=== PATIENT | male | born 1950 | race African-American/Black ===

== ENCOUNTER 2017-02-01 08:58 | Inpatient (IN) | payer MEDICARE, OTHER ==
[2017-02-01] MEDS ORDERED: Lorazepam 2 MG/ML VIAL ONE (09:10)
[2017-02-01] MEDS ORDERED: Fentanyl 100 MCG/2 ML VIAL ONE (09:24)
[2017-02-01] MEDS ORDERED: Midazolam HCl 2 mg/2 ml Vial ONE ×3 (09:24→11:48)
[2017-02-01 09:41] LABS: #Basophils 0.1 thou/uL (0.0-0.2); #Eosinphils 0.1 thou/uL (0.0-0.7); #Lymphocytes 3.7 thou/uL (1.20-3.40); #Monocytes 0.6 thou/uL (0.11-0.59); #Neutrophils 12.5 thou/uL (1.40-6.50); %Basophils 0.7 % (0.0-1.0); %Eosinophils 0.5 % (0.0-10.0); %Lymphocytes 21.8 % (21.0-51.0); %Monocytes 3.8 % (0.0-10.0); Hematocrit 42.9 % (42.0-52.0); Mean Platelet Volume 7.3 fL (7.4-10.4); Red Blood Cell (RBC) Count 4.78 mill/uL (4.70-6.10)
[2017-02-01] MEDS ORDERED: Fentanyl 20 MCG/ML 250 ML ONE (09:50)
[2017-02-01 10:09] LABS: Anion Gap 22 mmol/L (10-20); BUN (Urea Nitrogen) 12 mg/dL (8.4-25.7); Bilirubin, Total 0.2 mg/dL (0.2-1.2); Calc. Creatinine Clearance 0 mL/min (70-130); Calcium 9.5 mg/dL (7.8-10.44); Carbon Dioxide 14 mmol/L (23-31); Chloride 111 mmol/L (98-107); Estimated GFR-MDRD 66; Protein, Total 8.2 g/dL (5.8-8.1)
[2017-02-01 10:10] LABS: ALT (SGPT) 18 U/L (8-55); AST (SGOT) 25 U/L (5-34); Alkaline Phosphatase 94 U/L (40-150); Globulin 4.1 g/dL (2.4-3.5)
[2017-02-01 10:12] LABS: Oxyhemoglobin 88.3 % (94.0-97.0); Sodium 141 mmol/L (135-148)
[2017-02-01 10:18] LABS: Mechanical Tidal Volume 430 ml; Mode SIMV; Modified Allen's Test POSITIVE; Pressure Support 10 cmH2O; Vent YES
--- NOTE | 2017-02-01 10:20 | RAD ---
CHEST 1 VIEW: HISTORY: A 66-year-old male with altered mental status. FINDINGS: NG tube and endotracheal tube are in position. Minimal increased liner and interstitial markings are noted bilaterally. Healed right rib fractures. Slight blunting of the left costophrenic angle. At herosclerosis of the aorta. Increased linear and interstitial markings with some blunting of the left costophrenic angle. There may be some component of some minimal vascular congestion. There is no confluent pneumonia. Nasogas tric tube and endotracheal tube are in position. IMPRESSION: Nasogastric tube and endotracheal tube in satisfactory location. Mild bilateral vascular congestion with some increased markings bilaterally, some of which appears to be stable and chronic. Minimal bl unting of the left costophrenic angle. No confluent pneumonia. Healed right rib fractures. Continu ed short-term followup. POS: [facility]
[2017-02-01 10:21] LABS: Acetaminophen Less than 6.0 mcg/mL (10.0-30.0); Salicylate Less than 8.0 mg/dL (15.0-30.0)
--- NOTE | 2017-02-01 10:21 | CT ---
HEAD CT WITHOUT CONTRAST: Date: 02-01-17 Comparison: 04-05-15 History: Seizure with fall, altered mental status. Technique: Serial axial CT imaging is obtained at 5 mm intervals from the vertex through the skull ba se without contrast. FINDINGS: Bilateral midline nasal bone fractures are seen, unchanged when compared to the 04-05-15 exam. Fluid d ensity material is seen within the nasal cavity bilaterally. There is no displaced calvarial fracture. There is no intracranial hemorrhage, midline shift, mass ef fect or ventricular enlargement. There is mild cerebral volume loss. IMPRESSION: No intracranial hemorrhage or displaced calvarial fracture appreciated. POS: [facility]
--- NOTE | 2017-02-01 10:25 | CT ---
CERVICAL SPINE CT SCAN WITHOUT IV CONTRAST: HISTORY: A 66-year-old male with altered mental status. History of seizure with fall, intubation, laceration over occiput. FINDINGS: Nasogastric tube and endotracheal tube are in position. There is fluid within the posterior nasophar ynx and nasal cavity. There is multilevel cervical spondylosis, particularly at C6-C7. There appear s to be vertical height loss of the T3 vertebral body which appears to be old. The patient has had m ultiple prior thoracic spine compression fractures. No evidence for acute fracture or facet dislocation. IMPRESSION: No fracture or facet dislocation. Generalized spondylosis. Old mild compression fracture of T3. POS: [facility]
[2017-02-01 10:30] LABS: Lactic Acid - Sepsis 9.7 mmol/L (0.5-2.2)
[2017-02-01 10:44] LABS: Bilirubin Negative (Negative); Blood, Urine Small (Negative); Glucose, Urine (Dipstick) 500 mg/dL (Negative); Ketone, Urine Trace mg/dL (Negative); Nitrite Negative (Negative); Protein, Urine (Dipstick) 100 mg/dL (Neg-Trace); Urobilinogen 0.2 mg/dL (0.2-1.0)
[2017-02-01 10:59] LABS: Amphetamine Not Detected (NotDetected); Methadone Not Detected (NotDetected); Methamphetamine Not Detected (NotDetected)
[2017-02-01 11:00] LABS: RBC/HPF 0-3 HPF (0-3); Squamous Epithelial 0-3 HPF (0-3); WBC/HPF 0-3 HPF (0-3)
[2017-02-01 11:01] LABS: Bacteria/HPF None Seen HPF (None Seen); Hyaline Casts/LPF NONE SEEN LPF (0-3 Hyaline)
[2017-02-01] MEDS ORDERED: Propofol 1,000 MG/100 ML VIAL IV ONE (13:08)
[2017-02-01] MEDS ORDERED: Sodium Chloride 0.9% 1,000 ML IV SCH (14:00)
[2017-02-01] MEDS ORDERED: levETIRAcetam In NaCl (Iso-Os) 1,500 MG in Premix Bag 1 BAG IVPB SCH ×2 (14:30)
[2017-02-01] MEDS ORDERED: Acetaminophen 650 MG Suppository PR PRN (14:43)
[2017-02-01] MEDS ORDERED: Heparin 5,000 UNITS/ML VIAL SC SCH (15:00)
[2017-02-01] MEDS ORDERED: Lorazepam 2 MG/ML VIAL SLOW IVP PRN (16:26)
--- NOTE | 2017-02-01 16:56 | CON ---
DATE OF CONSULTATION: 02/01/2017 SERVICE: Pulmonary Medicine. REASON FOR CONSULTATION: Respiratory failure. HISTORY OF PRESENT ILLNESS: The patient is a 66-year-old -Cypriot male with past medical his tory significant for HIV. He only takes one medication directed at his virus. Otherwise, he was in his usual state of health. He does have a history of an episode of seizure remotely. He is not curr ently on any antiepileptic drugs. For some reason, he syncopized. He was found on the ground and rahman d a small laceration on the back of his head. Intracranially, there were no significant abnormalitie s. He was brought to the emergency department because he was a little lethargic where he was witness ed to have another seizure event. He was intubated and sedated. He was brought into the ICU where h e remained stable. Over the course of the day, I checked on him multiple times. His mentation slowl y started to improve. There were no additional events. PAST MEDICAL HISTORY: 1. Type 2 diabetes mellitus. 2. HIV, currently on treatment. 3. History of seizure. 4. Hypertension. 5. History of compression fracture of T3-T4. 6. History of L2 transverse process fracture. PAST SURGICAL HISTORY: Reconstructive surgery for facial fracture. SOCIAL HISTORY: Unknown presently. Previously, he reports no alcohol, tobacco or illicit drug use, but he has been positive for cannabinoids previously. FAMILY HISTORY: Unknown. ALLERGIES: No known drug allergies. MEDICATIONS: List of his home medications the inpatient medications were Reviewed. Multiple updates were made at this time. REVIEW OF SYSTEMS: This cannot be obtained as the patient is currently intubated and sedated. PHYSICAL EXAMINATION: VITAL SIGNS: Afebrile. Pulse 88, blood pressure 139/63, respirations 19, saturation 98% on 25% FIO2 and PEEP of 5. GENERAL: Patient is awake, alert, no apparent distress. HEENT: Normocephalic, atraumatic. Sclerae are white, conjunctivae pink. Oral and nasal mucosa is m oist without lesions. LUNGS: Decent air entry bilaterally with no prolonged expiratory phase, wheezing, rhonchi or crackle s. HEART: Normal rate, regular. ABDOMEN: Soft, nontender, nondistended. Bowel sounds positive. MUSCULOSKELETAL: No cyanosis or clubbing. No pitting in the bilateral lower extremities. NEUROLOGIC: Grossly nonfocal. LABORATORY DATA: WBC 17.0, hemoglobin 13.8, platelets 196,000. Neutrophil count is normal. PH 7.23 , pCO2 45, pO2 73. This was on 49% FiO2 at that time. Basic metabolic profile and liver function st udies are unremarkable. Lactic acid was 9.7 on presentation. Troponin 0.01. Prolactin 27.22. Urin alysis is positive for protein, glucose, ketones and blood, but negative for nitrites. The red blood cells are actually negative. Urine drug screen is positive for cannabinoids once again. Other meta bolites are not present including alcohol, acetaminophen, and salicylates. IMAGIN. Chest x-ray demonstrates nasogastric tube and endotracheal tube are in good position. Bilateral vascular congestion is identified. No evidence of overt pneumonia or large effusion is identified. Healed right-sided rib fractures. 2. CT of the C-spine demonstrates no acute osseous abnormality. Old compression fracture of T3 with some generalized spondylosis. 3. CT of the brain demonstrates soft tissue injury to the posterior occiput. There is no intracrani al abnormality identified. ASSESSMENT: 1. Seizure. 2. Acute hypoxic respiratory failure, resolving. 3. Metabolic encephalopathy. 4. Anion gap metabolic acidosis. PLAN: We will hold sedation. If he wakes up, spontaneous breathing trial will be considered as well as extubation. I will repeat lactate to make sure this is cleared off. The prolactin is elevated. The lactate is also elevated. Both of these things are consistent with possible abrupt seizure. I will put him on antiepileptic drug until we can further clarify what is going on. Currently, his lucy rologic exam is nonfocal and has been witnessed to move all 4 extremities. That being said, once he wakes up from the sedation and/or the effects of this recent seizure, we will be able to do more full neurologic exam, particularly after extubation occurs. Pulmonary Critical Care will continue to fol low while the patient remains in this location. CRITICAL CARE TIME: 30 minutes.
[2017-02-01] MEDS: Cefepime 1 GM, Admixture Fee 1 EACH in Sterile Water 10 ML SLOW IVP SCH (18:08)
[2017-02-01] MEDS: Sodium Chloride 0.45% 1,000 ML IV SCH ×2 (18:16→19:50)
--- NOTE | 2017-02-01 18:17 | HP ---
HISTORY OF PRESENT ILLNESS: The patient is a 66-year-old -Greek male who was brought by EM S to the emergency room today after he was found on the floor at home with altered mental status. He is an HIV positive patient. He is known to Dr. Mishra at the EMS. He brought a bottle of HIV medica tions he is taking at home. We have very limited information about his condition. We are not able t o contact any family member at this time. While in the emergency room, he started seizing and he got intubated and the decision was made about admission to ICU. PAST MEDICAL HISTORY: Positive for HIV. PAST SURGICAL HISTORY: Unknown at this point. ALLERGIES: None. CURRENT MEDICATIONS: Prezcobix. SOCIAL HISTORY/FAMILY HISTORY/REVIEW OF SYSTEMS: Unobtainable because of patient's current condition . He is intubated and sedated and there is no any family remember who would give me any information and the contact phone numbers we have on this patient are not working at all. PHYSICAL EXAMINATION: GENERAL: He is intubated. VITAL SIGNS: His blood pressure is 101/51, pulse is 70, respiratory rate is 8, pulse oximetry is 97% . LUNGS: Clear. HEART: S1, S2 normal. No S3, no S4, no murmur. ABDOMEN: Soft, nondistended. Bowel sounds are present. EXTREMITIES: No clubbing, cyanosis or edema. NEUROLOGIC: Examination is postponed since he is under sedation. LABORATORY DATA: Showed a white count of 17.0, hemoglobin 13.8, hematocrit 42.9, platelet count 196, 000. ABGs showed pH of 7.23, pCO2 45.9, pO2 was 73.4, bicarbonate 18.6, base excess -8.8, lactic aci d is up to 9.7, glucose 203. Sodium of 143, potassium 4.3, chloride 111, CO2 14, anion gap 22, BUN 1 2, creatinine 1.30. Prolactin 27.2. Urinalysis showed urine is yellow, cloudy, pH is 6.0, specific gravity 1.025 and 100 of protein, glucose 500, trace of ketones, small amount of blood, the rest of u rinalysis is within normal limits. Toxicology showed positive for cannabinoids. Plasma alcohol is 1 0. IMAGES: 1. Brain CT personally reviewed by me, did not show any intracranial hemorrhage. 2. CT of the cervical spine, no fracture or possible dislocation. This was personally reviewed by sherri macario. This is old mild compression fracture of T3 and some generalized spondylosis. 3. Chest x-ray showed some mild bilateral increased markings which look chronic, no pneumonia, no at electasis is present on this chest x-ray. 4. EKG, 12-lead shows sinus tachycardia with right axis deviation and short MS. 5. CT of the head results. He has bilateral nasal bone fracture and occipital contusion. IMPRESSION: 1. Altered mental status of unclear etiology. Rule out acute infectious process, encephalitis. The patient is going to be started on acyclovir 10 mg/kg IV piggyback every 8 hours. ID is consulted. The case was discussed with him. Also, he is going to be covered with broad spectrum IV antibiotics, vancomycin and cefepime. 2. Status post fall and head trauma. No obvious acute epidural subdural hematoma on the CT. 3. Seizures of unclear etiology at this point whether this trauma was the cause or some infectious p rocess going on. He is going to be loaded with a Keppra 1500 mg IV piggyback and 1000 of Keppra will be used every 12 hours. Neurology, Dr. Peacock is consulted for that purpose. 4. Human immunodeficiency virus positive status. Apparently, his CD4 count recently was checked and it was good more than 800. He is negative for hepatitis B and C. According to Dr. Mishra's records, will hold his current HIV regimen for now. 5. Mechanical ventilation. The patient was intubated to protect his airways since he had seizures a nd Dr. Nguyen, a cash specialist is going to manage that part. We will keep the patient in the unit. Intensive care will continue his IV fluids. He was given 1 liter of IV fluids in the [facility] room, he will be on 150. We will keep him on DVT prophylaxis with SCDs and PUD prophylaxis w ith H2 mk. Blood cultures and urine cultures ordered.
[2017-02-01] MEDS: Vancomycin HCl 1.25 GM in Sodium Chloride 0.9% 250 ML 250 ML IVPB SCH (18:23)
[2017-02-01] MEDS: Acyclovir Sodium 800 MG in Sodium Chloride 0.9% 250 ML 250 ML IVPB SCH ×2 (18:23→23:34)
[2017-02-01] MEDS ORDERED: Cefepime 1 GM in Sodium Chloride 0.9% 100 ML IVPB SCH (21:00)
[2017-02-01] MEDS: Famotidine/PF 20 mg/2ml Vial SLOW IVP SCH (21:40)
[2017-02-02] MEDS: levETIRAcetam In NaCl (Iso-Os) 1,000 MG in Premix Bag 1 BAG IVPB SCH ×4 (04:15→16:46)
[2017-02-02] MEDS: Vancomycin HCl 1.25 GM in Sodium Chloride 0.9% 250 ML 250 ML IVPB SCH (04:54)
[2017-02-02] MEDS: Cefepime 1 GM, Admixture Fee 1 EACH in Sterile Water 10 ML SLOW IVP SCH (05:03)
[2017-02-02 05:23] VITALS: BMI 26.9
[2017-02-02 05:38] LABS: #Basophils 0.1 thou/uL (0.0-0.2); #Eosinphils 0.1 thou/uL (0.0-0.7); #Lymphocytes 2.6 thou/uL (1.20-3.40); #Monocytes 0.5 thou/uL (0.11-0.59); #Neutrophils 8.6 thou/uL (1.40-6.50); %Basophils 0.6 % (0.0-1.0); %Eosinophils 0.6 % (0.0-10.0); %Lymphocytes 21.9 % (21.0-51.0); Hematocrit 34.2 % (42.0-52.0); Mean Platelet Volume 7.6 fL (7.4-10.4); Red Blood Cell (RBC) Count 3.87 mill/uL (4.70-6.10); White Blood Cell (WBC) Count 11.7 thou/uL (4.8-10.8)
[2017-02-02 05:52] LABS: Anion Gap 12 mmol/L (10-20); BUN (Urea Nitrogen) 6 mg/dL (8.4-25.7); Calc. Creatinine Clearance 102 mL/min (70-130); Calcium 8.3 mg/dL (7.8-10.44); Carbon Dioxide 19 mmol/L (23-31); Chloride 111 mmol/L (98-107); Estimated GFR-MDRD Greater than 90
[2017-02-02] MEDS ORDERED: Potassium Chloride 20 MEQ TAB PO SCH (08:15)
--- NOTE | 2017-02-02 08:29 | PRG ---
DATE OF SERVICE: 02/02/2017 SUBJECTIVE: The patient seen and examined at bedside. He is extubated. He is in ICU bed C8. He is able to talk to me. His mentation is appropriate and good. PHYSICAL EXAMINATION: VITAL SIGNS: Blood pressure 127/63, pulse is 81, respiratory rate is 20, and pulse ox is 99% on room air. HEENT: His head is normocephalic. Pupils responding to light properly. Sclerae is nonicteric. Con junctivae pinkish. Oral mucosa is moist. NECK: Supple, no lymphadenopathy. Thyroid is not palpable. LUNGS: Clear. HEART: S1, S2 normal, no S3, no S4, no murmur. ABDOMEN: Soft, nontender, nondistended. Bowel sounds are present, no organomegaly. EXTREMITIES: No clubbing, cyanosis or edema. NEUROLOGIC: He is alert and oriented x4. There is not any sensory or motor deficits present. Crani al nerves are intact. He protrudes the tongue in midline. Diadochokinesia is appropriate. Babinski sign is negative bilaterally. LABORATORY: Showed white count of 11.7, hemoglobin 11.2, hematocrit 34.2, platelet count is 167, sod ium of 139, potassium 3.2, chloride 111, CO2 is 19, BUN 6, creatinine 0.79, glucose 82. Lactic acid is down to 0.9 and calcium is 8.3. Procalcitonin is 0.03 and hydroxybutyrate was 0.69. Microbiology cultures are still pending from urine and blood. IMPRESSION: 1. Seizures of unclear etiology. The blood cultures and urine cultures are pending. The patient wa s seen by neurologist last night. We are awaiting for his final report. Apparently he recommended t o stop the Keppra since this was just first time seizure. We will see what subspecialist recommends for further workup. For now, we will continue his acyclovir, although Dr. Mishra is going to come and most likely discontinue that since his mental status is back to normal. 2. Acute hypoxia with respiratory failure, status post intubation. The patient is extubated and cli nically doing well without O2 support. 3. Metabolic encephalopathy, improved. His CO2 is improved to 19 this morning from 14 yesterday, mo st likely related to seizures and lactic acid presence. 4. Hypokalemia. We will supplement that, he is able to take oral potassium. 5. Human immunodeficiency virus with a good CD4 count above 800 just in 11/2016. 6. Status post fall and head trauma. It is still unclear whether this happened. He does not have a ny signs of any head contusion outside. He does not complain of any headache in this area. PLAN: Continue his IV fluids to improve his metabolic acidosis. We will move him out from the unit today later. We will replaced his potassium. We will get PT to get him up and ambulate and Dr. Kayla cortez will make decision about his antibiotic and acyclovir. We will continue his DVT and PUD prophylaxi s.
[2017-02-02] MEDS ORDERED: FLU VACC TS2017-18 (>65YR) 0.5 ML SYRINGE IM ONE (09:00)
[2017-02-02] MEDS: Famotidine/PF 20 mg/2ml Vial SLOW IVP SCH ×2 (10:16→20:38)
[2017-02-02] MEDS: Acyclovir Sodium 800 MG in Sodium Chloride 0.9% 250 ML 250 ML IVPB SCH (10:17)
[2017-02-02] MEDS: PREZCOBIX PO SCH (10:17)
[2017-02-02] MEDS: TIVICAY 50 MG PO SCH (10:17)
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
--- NOTE | 2017-02-02 17:12 | CON ---
DATE OF CONSULTATION: 02/02/2017 REASON FOR CONSULTATION: Syncope. PRIMARY CARE PROVIDER: Dr. Nguyen. HISTORY OF PRESENT ILLNESS: Mr. Denton is a 66-year-old gentleman with previous history of HIV, who recently had a syncopal episode. This was witnessed fall in the emergency room. He had a syncopal e pisode prior to arriving to the ER. There were no strips noted during the event. No previous histor y of chest pain, pressure, shortness of breath or other associated symptoms. No previous history of underlying coronary artery disease. No previous history of diabetes or tobacco abuse. He subsequent ly was intubated and placed in the ICU overnight. He has been subsequently extubated. The history o n postictal versus nonpostictal state was difficult due to intubation. PAST MEDICAL HISTORY: HIV positive, hypertension, and BPH. ALLERGIES: None. FAMILY HISTORY: Negative for CAD. HOME MEDICATIONS: Tylenol, acyclovir, cefepime, famotidine, Keppra, lorazepam, and vancomycin. REVIEW OF SYSTEMS: Ten-point review of systems is reviewed and as above, otherwise negative. PHYSICAL EXAMINATION: VITAL SIGNS: Blood pressure 149/78, pulse 82, temperature 98.5. GENERAL: Patient is a pleasant male/female who is in no acute distress. The patient appears his/her stated age. NEUROLOGIC: The patient is alert and oriented times 3 with no focal neurologic deficits. HEENT: Sclerae without icterus. Mouth has moist mucous membranes with normal pallor. NECK: No JVD. Carotid upstroke brisk. No bruits bilaterally. LUNGS: Clear to auscultation with unlabored respirations. BACK: No scoliosis or kyphosis. CARDIAC: Regular rate and rhythm with normal S1 and S2. No S3 or S4 noted. No significant rubs, mu rmurs, thrills, or gallops noted throughout the precordium. PMI is not displaced. There is no reji ternal heave. ABDOMEN: Soft, nontender, nondistended. No peritoneal signs present. No hepatosplenomegaly. No ab normal striae. EXTREMITIES: 2+ femoral and 2+ dorsalis pedis pulses. No cyanosis, clubbing, or edema. SKIN: No gross abnormalities. PERTINENT LABS: Hemoglobin 11.2, potassium 3.2, creatinine 0.7. IMPRESSION: Syncope. RECOMMENDATIONS: Mr. Denton's symptoms may be suggestive of underlying dysrhythmia. Echocardiogram has been ordered. His EKG did not suggest significant EKG changes. We will repeat his EKG. He did have his initial EKG noted to have EKG changes suggesting ischemia, but this was in the phase of resp iratory distress. He has no significant risk factors for early coronary disease except for hypertens ion. If his echocardiogram and EKG are felt to be within normal limits, would be okay from my standp oint to discharge home with a 3-week event recorder and close outpatient monitoring.
--- NOTE | 2017-02-02 18:40 | PRG ---
DATE OF SERVICE: 02/02/2017 SERVICE: Pulmonary Medicine. INTERVAL HISTORY: The patient is doing great from a respiratory standpoint. He is on room air. He is a little wobbly on his feet, but he is getting around under his own strength. He denies any curre nt fevers, chills, nausea, vomiting. He does not remember the events that precipitated his presentat ion. Otherwise, there has been no interval change to his condition. PHYSICAL EXAMINATION: VITAL SIGNS: Afebrile, pulse 85, blood pressure is 154/85, respirations 16, saturation 96% on room a ir. GENERAL: Patient is awake, alert, in no apparent distress. LUNGS: Decreased air entry. I do not appreciate wheezing, rhonchi, or crackles. HEART: Normal rate, regular. ABDOMEN: Soft, nontender, nondistended. Bowel sounds positive. MUSCULOSKELETAL: No cyanosis or clubbing. No pitting in the bilateral lower extremities. NEUROLOGIC: Grossly nonfocal. LABORATORY DATA: WBC 11.7, hemoglobin 11.2, platelets 167,000. Basic metabolic profile is unremarka ble except for potassium of 3.2. Lactate cleared 0.9. Procalcitonin was below the assay limit was 0 .03. Urine drug screen is positive for cannabinoids, but otherwise, his alcohol, acetaminophen, sali cylate, and other substances on the urine drug screen were unremarkable. Urine culture remains negat hiren to date. ASSESSMENT: 1. Acute hypoxic respiratory failure, resolved. 2. Metabolic encephalopathy, resolved. 3. Seizure, resolved. 4. Anion gap metabolic acidosis, resolved. PLAN: At this point, the patient remains stable from a Neurologic, Pulmonary, and Critical Care pers pective. As such, he can be transitioned out of the ICU to the stroke unit with seizure precautions. Neurology consultation should be considered. Continue telemetry for the time being. Potassium fili l be replaced once again. Once the patient is out of the ICU, Critical Care will sign off. Please c all with additional questions or concerns moving forward.
[2017-02-03 05:30] LABS: #Eosinphils 0.1 thou/uL (0.0-0.7); #Lymphocytes 2.1 thou/uL (1.20-3.40); #Monocytes 0.5 thou/uL (0.11-0.59); #Neutrophils 5.7 thou/uL (1.40-6.50); %Basophils 0.2 % (0.0-1.0); %Eosinophils 1.2 % (0.0-10.0); %Lymphocytes 24.7 % (21.0-51.0); %Monocytes 5.6 % (0.0-10.0); Hematocrit 34.6 % (42.0-52.0); Mean Platelet Volume 7.1 fL (7.4-10.4); Red Blood Cell (RBC) Count 3.99 mill/uL (4.70-6.10); White Blood Cell (WBC) Count 8.4 thou/uL (4.8-10.8)
[2017-02-03 05:56] LABS: Anion Gap 11 mmol/L (10-20); BUN (Urea Nitrogen) 6 mg/dL (8.4-25.7); Calc. Creatinine Clearance 93 mL/min (70-130); Calcium 8.5 mg/dL (7.8-10.44); Carbon Dioxide 22 mmol/L (23-31); Chloride 109 mmol/L (98-107); Estimated GFR-MDRD Greater than 90
[2017-02-03] MEDS: Potassium Chloride 20 MEQ TAB PO SCH ×2 (06:18→11:50)
[2017-02-03] MEDS: TIVICAY 50 MG PO SCH (08:14)
[2017-02-03] MEDS: PREZCOBIX PO SCH (08:14)
[2017-02-03] MEDS: Famotidine/PF 20 mg/2ml Vial SLOW IVP SCH (08:14)
[2017-02-03] MEDS ORDERED: COBICISTAT PO SCH (09:00)
[2017-02-03] MEDS ORDERED: [UNRECOGNIZED DRUG - OTHER] PO SCH (09:00)
[2017-02-03] MEDS ORDERED: Non-Formulary Item 1 EACH (Dolutegravir Sodium [Tivicay] 50 MG) PO SCH (09:00)
[2017-02-03] MEDS ORDERED: levETIRAcetam 500 MG TAB PO SCH (09:00)
[2017-02-03] MEDS ORDERED: DARUNAVIR PO SCH (09:00)
[2017-02-03 11:49] VITALS: BP 144/84; TEMP 98.5
--- NOTE | 2017-02-03 12:07 | PRG ---
DATE OF SERVICE: 02/03/2017 SUBJECTIVE: The patient is seen and examined at the bedside. He is doing quite well. He just came back from radiology where he had his cardiac stress test done, which was ordered by Dr. Carbone. C ardiologist who was consulted on the case. He does not have much complaints to offer. He feels good . His appetite is fair. OBJECTIVE: VITAL SIGNS: Blood pressure is 144/92, pulse is 79, temperature is 97.7, respiratory rate is 18, and O2 saturation is 96. HEENT: His head is atraumatic, normocephalic. Eyes: PERRLA. Conjunctivae pinkish. Sclerae nonict regis. Oral mucosa is moist. NECK: Supple, no lymphadenopathy. Thyroid is not palpable. LUNGS: Clear. HEART: S1, S2 normal, no S3, no S4, no any murmur. ABDOMEN: Soft, nontender. Bowel sounds are present, no organomegaly. EXTREMITIES: No clubbing, cyanosis or edema. NEUROLOGIC: He is alert and oriented x4. There is no any sensory or motor deficits present. Crania l nerves are intact. LABORATORY DATA: Showed a white count of 8.4, hemoglobin 11.7, hematocrit 34.6, platelet count is 15 3,000. Sodium of 139, potassium 2.9, chloride 109, CO2 22, BUN 6, creatinine 0.84, glucose 92 and ca lcium 8.7. IMPRESSION: 1. Seizure of still unclear etiology. The patient is on Keppra 1000 mg twice a day p.o. Dr. Alec bermudez saw the patient today and he is going to give us his accommodation soon. He seems to be doing well . It is not clear whether he had some syncopal episodes at home. He was seen by Dr. Carbone for C ardiology consultation, who ordered a cardiac stress test to make sure there is no ischemia causing s ome loss of consciousness. 2. Acute hypoxia with respiratory failure, status post mechanical ventilation. Now, the patient is extubated and doing well without any O2 support. 3. Metabolic encephalopathy, resolved. 4. Hypokalemia, still a problem. We will check his magnesium level. We will keep supplementing his potassium. 5. Human immunodeficiency virus with good CD4 count above 800, just in 11/2018. 6. Status post fall and questionable head trauma with negative clinical evidence for that. PLAN: At this point, I am still replacing his potassium. We will check his magnesium level. We fili l continue his Keppra. We await for further recommendation from neurologist and from spares scheduler. We should have the results on his cardiac stress test in the next couple of hours and we will make fu rther recommendations during his hospitalization.
--- NOTE | 2017-02-03 12:51 | NM ---
NUCLEAR MEDICINE MYOCARDIAL PERFUSION STUDY: Date: 02/03/17 HISTORY: Syncope. TECHNIQUE: SPECT imaging of the left ventricular myocardium was obtained during rest and stress following the in travenous administration of 32.0 and 10.1 mCi technetium-99m labeled sestamibi. FINDINGS: There is no discrete reversible defect seen. There is mild fixed/small defect at the cardiac apex. Th ere is also mild fixed decreased radiotracer activity within the inferior wall. These areas demonstra te normal wall motion, and thus, soft tissue attenuation is favored over prior infarction. No evidenc e for reversible ischemia is seen. TID is 0.86. Left ventricular wall motion appears normal with an EDV of 91 mL and ESV of 36 mL, and a left ventricular ejection fraction of 61%. IMPRESSION: 1. No definite reversible defect. Probable soft tissue attenuation as above. 2. Normal left ventricular ejection fraction. 3. Normal left ventricular wall motion. POS: [facility]
--- NOTE | 2017-02-03 13:14 | PRG ---
DATE OF SERVICE: 02/03/2017 SUBJECTIVE: Mr. Denton is doing well. No chest pain or pressure noted. No recurrent episodes or sy ncope. PHYSICAL EXAMINATION: VITAL SIGNS: 144/84, pulse 66, temperature 98.5. LUNGS: Clear to auscultation. CARDIAC: Regular rate and rhythm. ABDOMEN: Soft, nontender, nondistended. EXTREMITIES: No edema. Recent stress test negative for ischemia. Echo with Doppler shows LVEF 55%-60%. IMPRESSION: Syncope. RECOMMENDATIONS: Likely related to a seizure disorder. [facility] After speaking with Neurology, the initial disposition was the patient fell af ter discussing the case with Dr. Peacock. At this point, this is not consistent with his presentation, but we will await the final consult. From a cardiovascular standpoint, I would recommend a 3-week event recorder. We will plan on followi ng up with Mr. Denton next week or we can arrange the event recorder. He will also continue Kevin.
[2017-02-03] MEDS ORDERED: ADENOSINE 60 MG/20 ML VIAL ONE (14:42)
--- NOTE | 2017-02-03 14:42 | CON ---
NEUROLOGY CONSULTATION DATE OF CONSULTATION: 02/03/2017 CONSULTING PHYSICIAN: Hospitalist Service. IMPRESSION: 1. New onset seizure with a negative workup. 2. Diabetes. 3. Human immunodeficiency virus. PLAN: I would not start anticonvulsant therapy given the history that this is his first event. HISTORY OF PRESENT ILLNESS: Mr. Denton is a 66-year-old black gentleman with a history of HIV and di abetes. He recalls he was going to the grocery store when he apparently blacked out. He has no claudia ry of the events for quite some time afterward. He came into the hospital for evaluation. He had a CT scan of the brain done, which was unremarkable. His EEG was unremarkable as well. His lab work d id not show any specific abnormalities that would account for seizure. He is without any particular complaints of lateralized weakness or numbness. He has a little soreness in the inside of his mouth from the seizure, but otherwise denies any other pain. He vehemently denies that there has ever been other blackouts prior to this one. PAST MEDICAL HISTORY: As listed above. ALLERGIES: As per chart. SOCIAL HISTORY: Positive for some marijuana use. FAMILY HISTORY: Noncontributory. REVIEW OF SYSTEMS: Otherwise, negative. PHYSICAL EXAMINATION: GENERAL: He is a well-nourished man, who was in no distress. HEENT: Pupils equal and reactive. Conjunctivae clear. NECK: Supple. EXTREMITIES: No cyanosis. NEUROLOGIC: He is alert and appropriate. Speech is fluent and clear. His exam is nonfocal. SUMMARY: This is a 66-year-old man who had his first seizure without any provoking events that could be identified. I would hold off on anticonvulsant therapy until this is proven to be a recurrent pr oblem. If he has any further seizures, I will probably start him on Keppra 500 mg twice a day and fo llow up with him in the office.
--- NOTE | 2017-02-03 16:18 | DIS ---
DATE OF ADMISSION: 02/01/2017 DATE OF DISCHARGE: 02/03/2017 FINAL DIAGNOSES: 1. Seizures of still unclear etiology, it is recurrent, most likely. 2. Acute hypoxia with respiratory failure requiring intubation and mechanical ventilation. 3. Metabolic encephalopathy, resolved. 4. Hypokalemia, improved. 5. Human immunodeficiency virus with good CD4 count on recent testing. 6. Status post fall and questionable head trauma with negative clinical evidence for that. CONSULTANTS: 1. Dr. Andrei Mishra, Infectious Diseases Service. 2. Dr. Andrei Carbone, Cardiology Service. 3. Dr. Matthew Nguyen, Critical Care Service. IMAGES: 1. CT of the brain, no intracranial hemorrhage or displaced calvarial fracture was appreciated. 2. Cervical spine CT, no fracture of falls or dislocation. There was generalized spondylosis and ol d mild compression fracture of T3. 3. Chest x-ray showed mild bilateral vascular congestion with minimal blunting of the left costophre everett angle. There was some evidence of healed right rib fractures. 4. Stress test nuclear medicine which showed; a. No definite reversible defect, probable soft tissue attenuation. b. Normal left ventricular ejection fraction. c. Normal left ventricular wall motion. HOSPITAL COURSE: The patient is a 66-year-old -[place] male who was brought by EMS to the em ergency room after he was found on the floor by the family member with some altered mental status. Marli vitale is an HIV positive patient. He follows with Dr. Mishra, but according to his records, he is very co mpliant. He takes his medications and his last CD4 count was more than 800 done in 11/2016. While i n the emergency room, the patient had grand-mal seizures and airways were protected with intubation a nd the decision was made about further evaluation of his condition in the hospital, so the [facility] t Service run by [facility] was called and the patient got admitted. At the time of emergency room evaluation, his white count was up to 17,000, hemoglobin 13.8, hematocrit 42.9, platelet count w as 196,000. ABG showed pH of 7.23, pCO2 of 45.9 and pO2 was 73.4, bicarbonate was 18.6 and base exce ss was -8.8. Lactic acid was up to 9.7. Glucose 203, sodium 143, potassium 4.3, chloride 111, CO2 o f 14, anion gap was 22, BUN 12, creatinine 1.3. Prolactin was 27.2. Urinalysis showed yellow urine, cloudy of pH of 6.0, specific gravity of 1.025, 100 of proteins, glucose 500, trace of ketones, and small amount of blood. Toxicology showed positive for cannabinoids. Plasma alcohol was 10. The pat tim got admitted to intensive care unit. The case was discussed with Dr. Mishra who recommended to s tart him on acyclovir 10 mg/kg IV piggyback every 8 hours. The patient was loaded with 1500 mg of Ke ppra IV and then he was placed on 1000 mg of Keppra every 12 hours. Also, he was started on broad-sp ectrum antibiotics with vancomycin and cefepime. Blood cultures and urine cultures were drawn. It w as suspected that he had some head trauma according to the scenario, but we could not find any good c linical evidence of that trauma. The patient was seen by Dr. Nguyen for critical care evaluation an d the sedation was held and the patient had spontaneous breathing and the trial was done successfully and he got extubated. Post-extubation, he was able to maintain airways without any problems. He wa s not hypoxic. His mentation was back to his baseline and his baseline is within normal limits. His lactic acid was down to normal range after he received IV fluids and was ventilated overnight with m echanical ventilation. Subsequently, he was seen by Dr. Peacock for Neurology evaluation and I am still awaiting for the final report of this visit. We discussed the case thoroughly with Dr. Mishra who re commended to do a followup Cardiology evaluation since apparently he had the previous episodes very s imilar to this one before, so the patient was seen by Dr. Carbone for Cardiology evaluation. He di d an EKG which did not show any ischemic changes and the patient underwent a Cardiolite stress test w hich came back negative. His ejection fraction was estimated at 61% and there was not any ischemia, no wall motion abnormalities. The patient is doing well. He is tolerating his Keppra orally without any problems. He did not have any seizures during this hospitalization. He feels fine. He require d quite a bit of potassium supplementation. He had several doses yesterday and today. His potassium this morning was 2.9 and he received 2 doses of KCl 40 mEq each. His blood pressure is 144/84, puls e is 66, respiratory rate is 18, and O2 saturation is 99, his temperature is 98.5. His urine culture came back no growth. He is seen, examined, and evaluated before he is discharged home. DIET: We recommend him to stay on a heart-healthy diet. ACTIVITY: As tolerated. He is going to follow up with his primary care physician in 1 week. MEDICATIONS: At the time of discharge: 1. Keppra 1000 mg twice a day, 60 tablets. 2. Prezcobix 1 tablet daily. 3. Tivicay 50 mg daily. He is discharged home in good condition. Dr. Carbone is going to arrange an outpatient loop record er for him in the next few days and he will contact the patient when this is arranged. He is dischar ged and the time which was spent on the discharge is more than 30 minutes.
--- NOTE | 2017-02-04 00:05 | CON ---
DATE OF CONSULTATION: 02/01/2017 REFERRING PROVIDER: Bright Chung M.D. REASON FOR CONSULTATION: Passing out spell. HISTORY OF PRESENT ILLNESS: Mr. Denton is a pleasant 66-year-old male who has been consult ed for evaluation of passing out spell. History is obtained from patient's medical chart as well as patient. The patient apparently was found on the floor at home with the changes in mentation. He wa s brought to the [facility] and he became more combative for which he was to be intuba dheeraj. He reports that he has no recollection of the events that took place. He has no prior history of seizure disorder. 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 He does have a history of HI V for which he is taking a single antiretroviral therapy. PAST MEDICAL HISTORY: Significant for HIV. PAST SURGICAL HISTORY: None significant. SOCIAL HISTORY: He denies smoking, alcohol use, or illicit drug use. CURRENT MEDICATIONS: Please review MAR. ALLERGIES: No known drug allergies. REVIEW OF SYSTEMS: As mentioned in the HPI, otherwise negative. PHYSICAL EXAMINATION: VITAL SIGNS: Blood pressure of 133/67, pulse of 83, respirations of 17, O2 sats of 99%. He is afebr ile. GENERAL: Well-developed, well-nourished male in no apparent distress. RESPIRATORY: Clear to auscultation bilaterally. CARDIOVASCULAR: Regular rate and rhythm. NEUROLOGIC: Mental status: The patient is awake, alert, oriented x3. Speech and language: Fluent speech. Cranial nerves: Pupils are 3 mm, reactive. Visual khan are intact. External muscles are intact. Face is symmetric. Tongue and uvula are midline. Motor exam showed normal tone and bulk w ith 5/5 strength in both upper and lower extremities. Sensory: Sensation is intact and symmetric. Deep tendon reflexes, 2+ reflexes in both upper and lower extremities. Babinski: Plantar responses flexion bilaterally. Gait and Romberg could not be tested. LABORATORY DATA: Reviewed, which included CBC, CMP, urinalysis, urine drug screen, which are signifi cant for WBC of 17.0, hemoglobin 13.8, lactic acid of 9.7. Urine drug screen was positive for cannab inoids. IMAGING STUDIES: CT head without contrast was reviewed which showed no acute intracranial abnormalit y. IMPRESSION: 1. Syncope episode. 2. Altered mental status . Mr. Denton is a pleasant 66-year-old male who presented with an episode of passing o ut, followed by confusion. At this time, it is unclear whether this was truly a seizure episode or n ot given that he has no prior history of seizure disorder. I would not recommend starting him on any antiepileptic medication. I would recommend obtaining EEG as an outpatient. No further neurologic workup needed from my standpoint. Thank you for your consultation.
--- NOTE | 2017-02-06 08:46 | EKG ---
Test Reason : Blood Pressure : / mmHG Vent. Rate : 074 BPM Atrial Rate : 074 BPM P-R Int : 186 ms QRS Dur : 098 ms QT Int : 382 ms P-R-T Axes : 080 087 052 degrees QTc Int : 424 ms Normal sinus rhythm Normal ECG When compared with ECG of 01-FEB-2017 10:18, (Unconfirmed) Vent. rate has decreased BY [address] no longer depressed in Lateral leads T wave inversion no longer evident in Inferior leads Confirmed by Brad CHAVEZ ([id number]) on 02/06/2017 8:45:57 AM Referred By: JERO Confirmed By:Brad CHAVEZ
--- NOTE | 2017-02-07 13:51 | EEG ---
Referring Physician: [facility] EEG # [id number] TEST TYPE: ROUTINE PORTABLE INPATIENT REPORT: AN EEG USING THE INTERNATIONAL TEN-TWENTY SYSTEM OF ELECTRODE PLACEMENT WAS PERFORMED. The waking background is a low amplitude 9-10 hertz alpha frequency. The patient remained awake throughout the study. Photic stimulation was unremarkable. No epileptiform features were seen. IMPRESSION: THIS IS A NORMAL AWAKE EEG. Taste Tester: QUE Collar Turner: CROW BOLANOS
== END 2017-02-03 13:52 | disposition home or self-care (01) | DRG 208 ==
LOC: ERS 08:58 → CCU 11:51 → 2SE 02-02 12:52
PROVIDERS: ADMIT Internal Medicine; ATTEND Internal Medicine
PROC: 0BH17EZ Insertion of Endotracheal Airway into Trachea, Via Natural or Artificial Opening (ICD-10-PCS; principal; 2017-02-01)
PROC: 5A1945Z Respiratory Ventilation, 24-96 Consecutive Hours (ICD-10-PCS; 2017-02-01)
DX: J96.01 Acute respiratory failure with hypoxia (principal); B20 Human immunodeficiency virus [HIV] disease; E87.2 Acidosis; R56.9 Unspecified convulsions; E87.6 Hypokalemia; Z91.81 History of falling; Z87.891 Personal history of nicotine dependence; E11.9 Type 2 diabetes mellitus without complications; I10 Essential (primary) hypertension; Z78.1 Physical restraint status
CPT/HCPCS: 31500; 36415; 36416; 51702; 70450; 71010; 72125; 78452; 80048; 80053; 80306; 80307; 81003; 81015; 82010; 82553; 82805; 83605; 83735; 84145; 84146; 84484; 85025; 87086; 93005; 93010; 93017; 93306; 94002; 95816; 95819; 96361; 96365; 96366; 96374; 96375; 96376; 99292; A4216; A9500; J0133; J0153; J0692; J1953; J2060; J2250; J2704; J3010; J3370; J7050; S0028

== ENCOUNTER 2017-04-12 13:21 | Inpatient (IN) | payer MEDICARE, OTHER ==
[~2017-04-12 13:21] MED LIST: ISOVUE-370 76%-LOCM 1 ML ONE
[2017-04-12] MEDS ORDERED: Propofol 1,000 MG/100 ML VIAL IV ONE (13:43)
[2017-04-12 14:02] LABS: Hemoglobin 14.3 g/dL (14.0-18.0); Mean Corpuscular HGB CONC 31.5 g/dL (32.0-36.0); Mean Corpuscular Hemoglobin 28.3 pg (27.0-31.0); Mean Corpuscular Volume 89.9 fl (80.0-94.0); Mean Platelet Volume 8.2 fL (7.4-10.4); Platelet Count 215 thou/uL (130-400); RBC Distribution Width 12.2 % (11.5-14.5); Red Blood Cell (RBC) Count 5.07 mill/uL (4.70-6.10); White Blood Cell (WBC) Count 12.7 thou/uL (4.8-10.8)
[2017-04-12 14:04] LABS: PTT 25.5 SEC (22.9-36.1)
[2017-04-12 14:08] LABS: Prothrombin Time 13.8 SEC (12.0-14.7)
[2017-04-12 14:11] LABS: #Lymphocytes 2.6 thou/uL (1.20-3.40); #Monocytes 0.3 thou/uL (0.11-0.59); #Neutrophils 9.7 thou/uL (1.40-6.50); %Basophils 0.2 % (0.0-1.0); %Eosinophils 0.3 % (0.0-10.0); %Lymphocytes 20.5 % (21.0-51.0); %Monocytes 2.6 % (0.0-10.0); %Neutrophils 76.4 % (42.0-75.0); PLT Morphology Comment Appears Adequate; RBC Morphology Normal
[2017-04-12 14:20] LABS: Bilirubin Negative (Negative); Blood, Urine Trace (Negative); Clarity CLEAR (Clear); Glucose, Urine (Dipstick) 250 mg/dL (Negative); Leukocyte Negative (Negative); Nitrite Negative (Negative); Protein, Urine (Dipstick) 100 mg/dL (Neg-Trace); Specific Gravity, Urine 1.014 (1.002-1.036); Urobilinogen 0.2 mg/dL (0.2-1.0)
[2017-04-12 14:22] LABS: Bacteria/HPF None Seen HPF (None Seen); Hyaline Casts/LPF 4-6 HYALINE CAST LPF (0-3 Hyaline); Pathc Cast-AUWi Flag 0.54 (0-2.49); RBC/HPF 0-3 HPF (0-3); Squamous Epithelial 0-3 HPF (0-3); WBC/HPF 0-3 HPF (0-3)
[2017-04-12 14:25] LABS: CKMB 1.2 ng/mL (0-6.6); Troponin I 0.013 ng/mL (< 0.028)
[2017-04-12 14:35] LABS: Amphetamine Not Detected (NotDetected); Barbiturates Screen Not Detected (NotDetected); Benzodiazepine Screen Detected (NotDetected); Cocaine Metabolite Screen Not Detected (NotDetected); Medtox Control Line Valid? VALID (VALID); Medtox Reader # READER 1; Methadone Not Detected (NotDetected); Methamphetamine Not Detected (NotDetected); Opiate Screen Not Detected (NotDetected); Oxycodone Screen Not Detected (NotDetected); Phencyclidine (PCP) Not Detected (NotDetected); THC/Cannabinoid Screen Detected (NotDetected); Tricyclic Screen Not Detected (NotDetected)
--- NOTE | 2017-04-12 14:38 | RAD ---
RADIOGRAPH OF CHEST SINGLE VIEW: COMPARISON: 02/01/17. CLINICAL HISTORY: Altered mental status. FINDINGS: There is abnormal bilateral interstitial opacity predominantly in a perihilar distribution. Cardiac silhouette is prominent. There is no evidence of right side effusion. There is mild blunting of the left lateral costophrenic sulcus. Endotracheal and enteric catheters are again seen. IMPRESSION: 1. Progressive interstitial opacities bilaterally which may be on the basis of edema. Pneumonitis i s not excluded. Correlate clinically. 2. Small volume left pleural effusion. POS: [facility]
[2017-04-12 14:48] LABS: ALT (SGPT) 19 U/L (8-55); AST (SGOT) 22 U/L (5-34); Albumin 4.4 g/dL (3.4-4.8); Alkaline Phosphatase 100 U/L (40-150); Anion Gap 23 mmol/L (10-20); BUN (Urea Nitrogen) 14 mg/dL (8.4-25.7); Bilirubin, Total 0.2 mg/dL (0.2-1.2); CK (CPK) 170 U/L (30-200); Calc. Creatinine Clearance 0 mL/min (70-130); Calcium 9.1 mg/dL (7.8-10.44); Carbon Dioxide 14 mmol/L (23-31); Chloride 107 mmol/L (98-107); Estimated GFR-MDRD 66; Globulin 4.4 g/dL (2.4-3.5); Glucose 235 mg/dL (80-115); Potassium 4.2 mmol/L (3.5-5.1); Protein, Total 8.8 g/dL (5.8-8.1); Sodium 140 mmol/L (136-145)
--- NOTE | 2017-04-12 14:56 | CT ---
HEAD CT WITHOUT CONTRAST: Date: 04-12-17 Comparison: 02-01-17 History: Postictal patient, unresponsive, seizure. Technique: Serial axial CT imaging obtained at 5 mm intervals from the vertex through the skull base without contrast. FINDINGS: There is fluid in the posterior nasal pharyngeal region, incompletely assessed. There is no displaced calvarial fracture. There is no intracranial hemorrhage, midline shift, mass effect or ventricular e nlargement. There are a few punctate stable hypodensities within the right cerebellar hemisphere, mandeep dence of remote infarction. IMPRESSION: No intracranial hemorrhage or displaced calvarial fracture. Results called to Dr. Lawson at 2:15 p.m. 04-12-17. Code CR POS: [facility]
[2017-04-12 15:01] LABS: Acetaminophen Less than 6.0 mcg/mL (10.0-30.0); Alcohol Less than 10 mg/dL (Less than 10); Salicylate Less than 8.0 mg/dL (15.0-30.0)
[2017-04-12] MEDS ORDERED: Aspirin 300 MG Suppository ONE (15:06)
--- NOTE | 2017-04-12 15:11 | CT ---
CT ANGIOGRAM OF THE HEAD CT PERFUSION OF THE HEAD: Date: 04-12-17 Comparison: None. History: Altered mental status, seizure, stroke protocol. Technique: Serial axial CT imaging is obtained at 1.25 mm intervals from skull base through vertex wi th IV contrast using a CT angiogram protocol. Coronal and sagittal 3D reformatted imaging obtained. S ubsequently, CT perfusion maps were obtained upon the intravenous administration of contrast media, i ncluding axial blood volume, axial blood flow and mean transit time maps. FINDINGS: CT angiogram images demonstrate incompletely imaged nasogastric tube and endotracheal tube. Imaged distal vertebral arteries are patent. The basilar artery is patent. There is a focal area of hemodynamically significant stenosis involving the distal aspect of the righ t posterior cerebral artery, best seen on axial image 73. The right posterior cerebral artery is fowler nt beyond this point. Left HOSPITALITY AIDE appears grossly unremarkable. No sacular aneurysm or vascular occlusio n is seen involving the posterior circulation. The imaged extracranial ICA is patent bilaterally. The region of the anterior communicating artery and bilateral distal ROMINA branches appear unremarkable . The M1 segment and the MCA bifurcation appears within normal limits. Distal MCA branches appear intact bilaterally. The ICA bifurcation appears within normal limits bilaterally. No sacular aneurysm, high grade stenosis, or central vascular occlusion is seen involving the anterio r circulation on either side. There is fluid within the posterior nasopharynx and oropharynx. No acute osseous abnormality is noted. CT PERFUSION MAPS: Cerebral blood flow, cerebral blood volume, and mean transit time maps appear unremarkable. IMPRESSION: 1. No arterial occlusion. 2. Focal area of significant stenosis involving the distal right HOSPITALITY AIDE. 3. Unremarkable cerebral perfusion maps. POS: [facility]
[2017-04-12 15:32] LABS: Base Excess (BEa) -3.5 mEq/L (0 (+/-) 2.5); CO2 Tension 53.1 mmHg (35.0-45.0); Hematocrit-ABG 48.6 % (42.0-52.0); O2 Tension (PaO2) 109.2 mmHg (80.0-100.0); pH, Arterial 7.27 (7.35-7.45)
[2017-04-12 15:33] LABS: ALV-art Gradient 180.925 (0-20); Analyzer IN Cardio ER; Calcium, Ionized 1.2 mmol/L (1.12-1.30); Hemoglobin (Hb) 14.7 g/dL (14.0-18.0); Puncture Site RRA
[2017-04-12] MEDS ORDERED: Ondansetron HCl/PF 4 MG/2 ML Vial IVP PRN (15:33)
[2017-04-12] MEDS ORDERED: HumaLOG 300 UNITS/3 ML VIAL SC PRN (15:33)
[2017-04-12] MEDS ORDERED: Lorazepam 2 MG/ML VIAL SLOW IVP PRN (15:33)
[2017-04-12] MEDS ORDERED: Acetaminophen 650 MG Suppository PR PRN (15:33)
[2017-04-12] MEDS ORDERED: Dextrose 50% Abboject 50 ML SYRINGE SLOW IVP PRN ×2 (15:33→15:34)
[2017-04-12] MEDS ORDERED: Dextrose 5% in Water 1,000 ML IV PRN ×2 (15:33→15:34)
[2017-04-12] MEDS ORDERED: Labetalol HCl 100 MG/20 ML VIAL SLOW IVP PRN (15:34)
[2017-04-12] MEDS ORDERED: hydrALAZINE 20 MG/ML VIAL SLOW IVP PRN (15:34)
[2017-04-12] MEDS ORDERED: levETIRAcetam In NaCl (Iso-Os) 1,000 MG in Premix Bag 1 BAG IVPB SCH (15:45)
[2017-04-12] MEDS ORDERED: cefTRIAXone\\ROCEPHIN 2 GM in Sodium Chloride 0.9% 100 ML IVPB SCH (16:00)
--- NOTE | 2017-04-12 16:25 | HP ---
PRIMARY CARE PROVIDER: Listed on his chart was Dr. Zach Chamberlain. Referred to the [facility] Service for status epilepticus and mechanical intubation and ventil ation done in the emergency room. The patient apparently had a grand mal seizure outside the hospita , which brought in to the hospital, encephalopathic, had another seizure, was unable to maintain air way, has been intubated. There is no blood gas available at the moment. He is thrashing about a bit , non-purposeful. No definite seizure activity. Does not respond appropriately to questions, etc. Past medical history is obtained from the patient's previous admission on 02/01/2017. He was admitte d after being found on the floor in altered mental status. At that point, he started seizing and was intubated in the emergency room and admitted. PAST MEDICAL HISTORY: Positive for HIV positive, positive for diabetes mellitus type 2. PAST SURGICAL HISTORY: Unknown. ALLERGIES: None known. CURRENT MEDICATIONS: Unavailable. He was discharged on 01/28/2017 admission on Prezcobix 1 tablet a day, Keppra 1000 mg twice a day, Tivicay 50 mg daily. FAMILY HISTORY: Unobtainable due to patient's obtunded medical status, nothing on his old chart. SOCIAL HISTORY: Unable to obtain. X records indicate he denies alcohol, drug, or tobacco abuse. It is pertinent that he has been THC positive twice. REVIEW OF SYSTEMS: Unable to obtain. PHYSICAL EXAMINATION: GENERAL: He is intubated and not responsive to oral or physical stimuli. VITAL SIGNS: His initial vital signs blood pressure 248/114, currently 197/84; pulse initially 149 a nd currently 140; respirations mechanically ventilated; temperature on admission 99.3; O2 sat is 98 o n a ventilator by oximetry. HEENT: Reveal pupils to be about 3-4 mm and reactive, sclerae white. Tympanic membranes clear. Nos e clear. Oral mucous membranes are wet. Dental hygiene is difficult to determine with his current m ental status and the tube in his mouth, endotracheal tube and nasogastric tube. NECK: No jugular venous distention, adenopathy, or thyromegaly. CHEST: Grossly clear to auscultation and percussion. HEART: Has a regular rate and rhythm, tachycardic. No murmurs or gallops appreciated. First and se cond heart sounds were regular. ABDOMEN: Soft, bowel sounds are normal. There is no hepatosplenomegaly, no mass, no rebound. EXTREMITIES: Reveal no cyanosis, clubbing or edema. PULSES: Carotid, radial, and femoral pulses intact. Pedal pulses diminished. SKIN: Warm and dry without bruises or rashes. HEME/LYMPH: Reveals no tender or swollen lymph nodes in axilla, inguinal or cervical area. NEUROLOGICAL: Pupils are reactive. Extraocular movements. Negative doll's eyes. Face is symmetric . Moves all extremities. Deep tendon reflexes difficult to ascertain. Both toes are upgoing to oliver ntar stimulation. Chest x-ray, possible pulmonary vascular congestion, no consolidation, no cardiomegaly, reviewed by sherri vitale. EKG appears to be atrial flutter with 2:1 block. We will reevaluate with repeat, reviewed by me. LABORATORY: Chemistries and comp metabolic profile is normal except for blood sugar 235 and CO2 of 1 4. Troponins normal. CK-MB is normal. There is no prolactin ordered. Urine is grossly clear. Tox icology is positive for THC and benzodiazepines. INR is 1.0. CBC: Mild elevated white count 12.7, mild neutrophilia, hemoglobin 14.3, platelet count 215,000. ADMITTING DIAGNOSES: 1. Encephalopathy, toxic metabolic. 2. Status epilepticus, has received IV Keppra and IV lorazepam. 3. Human immunodeficiency virus, on oral medicines. 4. Diabetes mellitus type 2. PLAN: 1. Moved to critical care unit on ventilator. 2. Keppra 1000 IV q.12. 3. Neurology consult. 4. Physical Therapy Manager consult for assistance with ventilator management. 5. Consult Infectious Disease, otherwise I suspect his HIV is not a component of this. 6. Brain CT read by myself and the radiologist reveals no abnormality. Brain perfusion, awaiting fo r radiology interpretation. CODE STATUS: Set it full. There are no family or decision makers available.
[2017-04-12] MEDS: Sodium Chloride 0.9% 1,000 ML IV SCH (17:26)
[2017-04-12] MEDS ORDERED: Morphine 2 MG/ML SYRINGE SLOW IVP PRN (17:29)
[2017-04-12] MEDS ORDERED: Fentanyl BOLUS 250 ML IVPB PRN (17:29)
[2017-04-12] MEDS ORDERED: DISCONTINUE PREVIOUS NARCOTIC PAIN MEDICATIONS AND BENZODIAZEPINES FS SCH (17:29)
[2017-04-12] MEDS ORDERED: fentaNYL Citrate/PF 2,000 MCG in Sodium Chloride 0.9% 60 ML IV SCH (17:30)
[2017-04-12] MEDS: Propofol 1,000 MG/100 ML VIAL IV PRN ×2 (17:34→22:02)
[2017-04-12] MEDS ORDERED: Lorazepam 2 MG/ML VIAL ONE (19:55)
[2017-04-12 21:00] LABS: Troponin I 0.042 ng/mL (< 0.028)
[2017-04-13] MEDS: Sodium Chloride 0.9% 1,000 ML IV SCH ×4 (00:53→17:07)
[2017-04-13] MEDS: Lorazepam 2 MG/ML VIAL SLOW IVP PRN ×2 (01:05→09:41)
[2017-04-13] MEDS: Propofol 1,000 MG/100 ML VIAL IV PRN ×6 (02:11→20:54)
--- NOTE | 2017-04-13 02:50 | CON ---
DATE OF CONSULTATION: 04/12/2017 HISTORY OF PRESENT ILLNESS: This is a 66-year-old gentleman who was found seizing at home by his bro ther. He came to the ER. He is no longer in the ICU. The patient is intubated on the vent. Akil recio historian according to the ER people. I guess he was intubated to protect his airways. He has been in the hospital here numerous times. H e had a drug screen done, which shows he had cannabinoids and benzos. Chest x-ray was taken, which showed some cephalization in the right upper lung, otherwise no acute in filtrates were seen. CT brain, no intracranial hemorrhage was seen. Head and neck CT brain perfusion was done. The arter ial occlusion of focal area of significant stenosis involving the distal , otherwise unremarkabl e. Reviewing the extensive medical history is outlined. The patient has been here many times with seizure activity. Presently in the ICU, vented, therefore unable to give any history. PAST MEDICAL HISTORY: Reviewed several old medical records at length. 1. Human immunodeficiency virus. 2. Diabetes. 3. Previous seizure activity. 4. Previous substance abuse. 5. He was 4 months ago with otherwise compression fracture. MEDICATIONS: List of medicine; Keppra 1000 twice a day, 50 once a day. PAST SURGICAL HISTORY: Reconstructive surgery for facial. SOCIAL HISTORY: No alcohol abuse, tobacco abuse at this time. FAMILY HISTORY: Unremarkable and unknown. ALLERGIES: Unknown. List of medications reviewed and noted, old records reviewed. REVIEW OF SYSTEMS: Ten point otherwise unobtainable since he is sedated. PHYSICAL EXAMINATION: VITAL SIGNS: Pulse 119, sats 100%, respirations 22, blood pressure 140/80. CHEST: Decreased breath sounds, no wheezing or crackles. CARDIAC: Normal S1, S2. No gallops. ABDOMEN: Soft, no masses.. LABORATORY DATA: White count 12,000, H&H 14 and 43, platelet count 215. PO2 of 109, PCO2 37, ph 7.2 7, rate of 14, 50%. Electrolytes are normal. Creatinine is normal. Troponin was normal. Please note I reviewed his extensive lab report, x-ray images personally all the report and imaging s tudies. IMPRESSION: 1. Seizure activity, recurrent. 2. History of human immunodeficiency virus. 3. Respiratory failure. 4. Diabetes. 5. Previous substance abuse. PLAN: Minimize sedation. Continue anti-seizure medication, Keppra. Wean when stable. He was started empirically on broad-spectrum antibiotics as per the admitting physician. Please note, this is a 40 minutes critical care time.
[2017-04-13 05:46] LABS: Anion Gap 11 mmol/L (10-20); BUN (Urea Nitrogen) 13 mg/dL (8.4-25.7); Calc. Creatinine Clearance 80 mL/min (70-130); Calcium 8.5 mg/dL (7.8-10.44); Carbon Dioxide 22 mmol/L (23-31); Chloride 112 mmol/L (98-107); Estimated GFR-MDRD Greater than 90; Glucose 115 mg/dL (80-115); Potassium 5.2 mmol/L (3.5-5.1); Sodium 140 mmol/L (136-145)
[2017-04-13 07:34] LABS: Hemoglobin 12.8 g/dL (14.0-18.0); Mean Corpuscular HGB CONC 32.4 g/dL (32.0-36.0); Mean Corpuscular Volume 89.5 fl (80.0-94.0); Mean Platelet Volume 7.2 fL (7.4-10.4); Platelet Count 169 thou/uL (130-400); RBC Distribution Width 12.1 % (11.5-14.5); Red Blood Cell (RBC) Count 4.42 mill/uL (4.70-6.10); White Blood Cell (WBC) Count 13.3 thou/uL (4.8-10.8)
[2017-04-13 07:43] LABS: Actual Bicarbonate (HCO3a) 21.7 mEq/L (22-26); CO2 Tension 28.3 mmHg (35.0-45.0); O2 Tension (PaO2) 106.5 mmHg (80.0-100.0)
[2017-04-13 07:44] LABS: Base Excess (BEa) -0.4 mEq/L (0 (+/-) 2.5); Calcium, Ionized 1.2 mmol/L (1.12-1.30); Hemoglobin (Hb) 12.6 g/dL (14.0-18.0); Puncture Site LRA
[2017-04-13 07:45] LABS: ALV-art Gradient 143.325 (0-20)
[2017-04-13 07:59] LABS: Lymphocytes 15 % (21-51); MDiff Complete? YES; Monocytes 1 % (0-10); Neutrophil 84 % (42-75); RBC Morphology Normal
--- NOTE | 2017-04-13 11:10 | PDOC.PN ---
- Subjective Encounter Start Date: 04/13/17 Encounter Start Time: 11:08 Subjective: nonresponsive - Objective Resuscitation Status: Resuscitation Status FULL:Full Resuscitation MAR Reviewed: Yes Vital Signs & Weight: Vital Signs (12 hours) Temp Pulse Resp BP Pulse Ox 04/13/17 10:00 12 04/13/17 08:00 12 04/13/17 07:34 97.5 F L 76 14 100 04/13/17 07:19 82 136/76 04/13/17 07:00 97.5 F L 04/13/17 06:00 14 04/13/17 04:00 98.7 F 14 04/13/17 03:05 87 125/63 04/13/17 02:00 14 04/13/17 00:00 98.3 F 14 Weight Weight 169 lb 5.04 oz Most Recent Monitor Data Heart Rate from ECG 95 NIBP 185/107 NIBP BP-Mean 119 Respiration from ECG 16 SpO2 100 I&O: 04/12/17 04/13/17 04/14/17 06:59 06:59 06:59 Intake Total 2030 Output Total 1405 260 Balance 625 -260 Result Diagrams: 04/13/17 07:28 04/13/17 05:17 Additional Labs: Accuchecks 04/13/17 04/13/17 04/12/17 04:31 00:19 19:53 POC Glucose 133 H 146 H 107 Phys Exam - Physical Examination Neck: no JVD Respiratory: clear to auscultation bilateral Cardiovascular: RRR, no significant murmur Gastrointestinal: soft, non-tender, positive bowel sounds Musculoskeletal: no edema Neurological: non-focal Dx/Plan (1) Encephalopathy acute Code(s): G93.40 - ENCEPHALOPATHY, UNSPECIFIED Status: Acute (2) Status epilepticus Code(s): G40.901 - EPILEPSY, UNSP, NOT INTRACTABLE, WITH STATUS EPILEPTICUS Status: Acute (3) DM type 2 (diabetes mellitus, type 2) Status: Chronic Qualifiers: Diabetes mellitus complication status: without complication - Plan cont current plan of care (epp) cont iv keppra -: stat cxr( intubated) -: cont accu/ ss -: discuss with after school coordinator/ neurology * .
[2017-04-13] MEDS ORDERED: levETIRAcetam In NaCl (Iso-Os) 1,000 MG in Premix Bag 1 BAG IVPB SCH ×2 (11:30→21:00)
--- NOTE | 2017-04-13 12:19 | RAD ---
CHEST ONE VIEW: History: Dyspnea. Follow up. Comparison: 04-12-17 FINDINGS: Cardiac silhouette is magnified by projection. Pulmonary vasculature is less engorged than on the rin or exam. Mediastinum is midline. Lines and tubes appear unchanged in position. desk monitor leads overlie the chest. IMPRESSION: Interval decrease in degree of pulmonary vascular congestion. POS: [facility]
[2017-04-13] MEDS: levETIRAcetam In NaCl (Iso-Os) 1,000 MG in Premix Bag 1 BAG IVPB SCH (20:01)
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
--- NOTE | 2017-04-13 21:34 | PRG ---
DATE OF SERVICE: 04/13/2017 Mr. Denton remains mechanically ventilated. Apparently was found at home by his brother and status w as intubated. His records have been reviewed. OBJECTIVE: GENERAL: On exam, he is in no distress. VITAL SIGNS: Afebrile, heart rate 72, respiratory rate 13, oximetry is 100%. He is mechanical venti lated. Intake and output is positive 625. LUNGS: Clear anteriorly. HEART: Regular rhythm. S1 and S2 are normal. ABDOMEN: Soft. EXTREMITIES: Without asymmetry. LABORATORY DATA: White count 13.3, hemoglobin 12.8, platelets 169,000. Sodium 140, potassium 5.2, chloride 112, bicarbonate 22, BUN 13, creatinine 0.76. Blood gas, pH 7.5, CO2 of 28, pO2 of 106. Chest radiograph was reviewed and I see no alveolar infiltrates on his chest radiograph. Head CT was reviewed and showed no hemorrhage. CT angiogram of the brain was done. It showed right posterior cerebral stenosis, but a patent left p osterior cerebral artery. The remainder of vascular images showed no obstruction. IMPRESSION: Respiratory failure associated with status epilepticus. We will consider weaning in the morning if he remains seizure free as of tomorrow morning. He is on Keppra. He does have human immunodeficiency virus. His CD4 count not done recently to be quantitated. If i t is low, then lumbar puncture would be indicated. Last CD4 count I have was 198 in 03/29. Infectious Disease should be consulted. Critical care time 30 minutes.
[2017-04-14] MEDS: Sodium Chloride 0.9% 1,000 ML IV SCH ×3 (01:41→13:55)
[2017-04-14] MEDS: Propofol 1,000 MG/100 ML VIAL IV PRN ×3 (02:13→09:45)
[2017-04-14 07:11] LABS: Actual Bicarbonate (HCO3a) 23.1 mEq/L (22-26); CO2 Tension 32.7 mmHg (35.0-45.0); O2 Tension (PaO2) 78.3 mmHg (80.0-100.0); pH, Arterial 7.47 (7.35-7.45)
[2017-04-14 07:12] LABS: ALV-art Gradient 29.505 (0-20); Base Excess (BEa) -0.1 mEq/L (0 (+/-) 2.5); Calcium, Ionized 1.2 mmol/L (1.12-1.30); Hematocrit-ABG 36.5 % (42.0-52.0); Puncture Site RR
[2017-04-14 07:15] LABS: Anion Gap 12 mmol/L (10-20); BUN (Urea Nitrogen) 10 mg/dL (8.4-25.7); Calc. Creatinine Clearance 94 mL/min (70-130); Calcium 8.3 mg/dL (7.8-10.44); Carbon Dioxide 21 mmol/L (23-31); Chloride 113 mmol/L (98-107); Estimated GFR-MDRD Greater than 90; Glucose 96 mg/dL (80-115); Sodium 142 mmol/L (136-145)
[2017-04-14] MEDS: levETIRAcetam In NaCl (Iso-Os) 1,000 MG in Premix Bag 1 BAG IVPB SCH ×2 (08:39→20:39)
[2017-04-14 13:56] LABS: #Basophils 0.1 thou/uL (0.0-0.2); #Eosinphils 0.1 thou/uL (0.0-0.7); #Lymphocytes 2.1 thou/uL (1.20-3.40); #Monocytes 0.7 thou/uL (0.11-0.59); #Neutrophils 10.8 thou/uL (1.40-6.50); %Basophils 0.4 % (0.0-1.0); %Eosinophils 0.5 % (0.0-10.0); %Lymphocytes 15.4 % (21.0-51.0); %Monocytes 4.8 % (0.0-10.0); %Neutrophils 78.9 % (42.0-75.0); Hemoglobin 15.2 g/dL (14.0-18.0); Mean Corpuscular HGB CONC 35.2 g/dL (32.0-36.0); Mean Corpuscular Hemoglobin 30.8 pg (27.0-31.0); Mean Corpuscular Volume 87.6 fl (80.0-94.0); Mean Platelet Volume 8.1 fL (7.4-10.4); Platelet Count 114 thou/uL (130-400); RBC Distribution Width 11.9 % (11.5-14.5); Red Blood Cell (RBC) Count 4.93 mill/uL (4.70-6.10); White Blood Cell (WBC) Count 13.7 thou/uL (4.8-10.8)
--- NOTE | 2017-04-14 18:48 | PRG ---
DATE OF SERVICE: 04/14/2017 SUBJECTIVE: Abdifatah Denton awaken this morning. Sedation was decreased gradually and he was coopera tive. Minute volume is 7 and 8 liters a minute. OBJECTIVE: VITAL SIGNS: Blood pressure is stable overnight. This afternoon is 146/66, heart rate is 88, respir atory rate is 10. Oximetry is 96. HEENT: His pupils are equal. Sclerae is anicteric. LUNGS: Clear anteriorly. HEART: Regular rhythm. ABDOMEN: Soft. LABORATORY DATA: White count 13.7, hemoglobin 15.2, platelets 114. Sodium 142, potassium 4, chlorid e 113, bicarb 21, BUN 10, creatinine 0.82. pH 7.7, CO2 of 32, pO2 of 78. IMAGING: Chest radiograph from yesterday was again reviewed by me, there is no infiltrates. IMPRESSION: Respiratory failure after seizures. It was felt he was a candidate for extubation. Thi s has been done successfully. Post-extubation, he has done well, throughout the afternoon no respira tory distress. Critical care time was 30 minutes.
--- NOTE | 2017-04-14 19:49 | PDOC.PN ---
- Subjective Encounter Start Date: 04/14/17 Encounter Start Time: 19:45 Subjective: f/u extubation due to resp failure with seizures. No acute issues per -: nursing. - Objective Resuscitation Status: Resuscitation Status FULL:Full Resuscitation MAR Reviewed: Yes Vital Signs & Weight: Vital Signs (12 hours) Temp Pulse Resp BP Pulse Ox 04/14/17 16:00 98.6 F 04/14/17 12:00 98.1 F 99 04/14/17 11:00 100 04/14/17 10:55 77 144/66 H 04/14/17 10:29 86 144/66 H 04/14/17 10:00 17 04/14/17 08:00 13 Weight Admit Weight 169 lb Weight 169 lb 12.095 oz Most Recent Monitor Data Heart Rate from ECG 86 NIBP 162/64 NIBP BP-Mean 89 Respiration from ECG 23 SpO2 96 I&O: 04/13/17 04/14/17 04/15/17 06:59 06:59 06:59 Intake Total 2030 3940 2053 Output Total 1405 1920 1200 Balance 625 2019 85 Result Diagrams: 04/14/17 13:42 04/14/17 06:39 Additional Labs: Accuchecks 04/14/17 04/14/17 04/14/17 15:58 11:50 00:56 POC Glucose 98 85 110 04/13/17 20:04 POC Glucose 93 Microbiology 04/12/17 14:00 Urine leonardo catheter Urine Culture - Final NO GROWTH AT 48 HOURS 04/12/17 13:59 Venous blood - Left Hand Blood Culture - Preliminary NO GROWTH AT 48 HOURS 04/12/17 13:54 Venous blood - Left Hand Blood Culture - Preliminary Coagulase Neg Staphylococcus Coagulase Neg Staphylococcus#2 Laboratory Tests 04/12/17 04/12/17 04/13/17 13:45 14:00 07:28 WBC 12.7 H 13.3 H U Benzodiazepines Scrn Detected H U Cannabinoids Screen Detected H Radiology Reviewed by me: Yes (CT Brain - negative) EKG Reviewed by me: Yes (Tele - SR) Phys Exam - Physical Examination Constitutional: NAD HEENT: PERRLA, oral pharynx no lesions Neck: no JVD, supple Respiratory: no wheezing, clear to auscultation bilateral Cardiovascular: RRR Gastrointestinal: soft, non-tender, no distention, positive bowel sounds Musculoskeletal: no edema, pulses present Neurological: moves all 4 limbs Skin: normal turgor, cap refill <2 seconds Dx/Plan (1) Encephalopathy acute Code(s): G93.40 - ENCEPHALOPATHY, UNSPECIFIED Status: Acute Comment: Resolving, continue supportive measures (2) Status epilepticus Code(s): G40.901 - EPILEPSY, UNSP, NOT INTRACTABLE, WITH STATUS EPILEPTICUS Status: Acute Comment: Resolved, continue Keppra 1000mg IV q12h, seizure precautions (3) Acute respiratory failure Code(s): J96.00 - ACUTE RESPIRATORY FAILURE, UNSP W HYPOXIA OR HYPERCAPNIA Status: Acute Qualifiers: Respiratory failure complication: hypoxia Qualified Code(s): J96.01 - Acute respiratory failure with hypoxia Comment: Extubated 04/14/17 (4) HIV (human immunodeficiency virus infection) Status: Chronic Comment: controlled viremia with current regimen, CD 4 counts >700 - 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
[2017-04-15 04:57] LABS: Anion Gap 12 mmol/L (10-20); BUN (Urea Nitrogen) 9 mg/dL (8.4-25.7); Calc. Creatinine Clearance 89 mL/min (70-130); Calcium 8.5 mg/dL (7.8-10.44); Carbon Dioxide 24 mmol/L (23-31); Chloride 110 mmol/L (98-107); Estimated GFR-MDRD Greater than 90; Glucose 78 mg/dL (80-115); Potassium 3.3 mmol/L (3.5-5.1); Sodium 143 mmol/L (136-145)
[2017-04-15 06:06] LABS: #Eosinphils 0.1 thou/uL (0.0-0.7); #Lymphocytes 2.4 thou/uL (1.20-3.40); #Monocytes 0.5 thou/uL (0.11-0.59); #Neutrophils 7.6 thou/uL (1.40-6.50); %Basophils 0.3 % (0.0-1.0); %Lymphocytes 22.6 % (21.0-51.0); %Monocytes 4.5 % (0.0-10.0); %Neutrophils 71.6 % (42.0-75.0); Hemoglobin 11.8 g/dL (14.0-18.0); Mean Corpuscular HGB CONC 33.5 g/dL (32.0-36.0); Mean Corpuscular Hemoglobin 29.2 pg (27.0-31.0); Mean Corpuscular Volume 87.2 fl (80.0-94.0); Mean Platelet Volume 7.6 fL (7.4-10.4); PLT Morphology Comment Appears Adequate; Platelet Count 138 thou/uL (130-400); RBC Distribution Width 11.7 % (11.5-14.5); RBC Morphology Normal; Red Blood Cell (RBC) Count 4.04 mill/uL (4.70-6.10); White Blood Cell (WBC) Count 10.6 thou/uL (4.8-10.8)
[2017-04-15] MEDS: levETIRAcetam In NaCl (Iso-Os) 1,000 MG in Premix Bag 1 BAG IVPB SCH (08:55)
[2017-04-15 12:14] LABS: %CD4 (Helper/Inducer) 32.9 % (30.8-58.5); Absolute CD4 625 /uL (359-1519); Lymphocytes/Gated Cell Count 1.9 x10E3/uL (0.7-3.1); Total Lymphocyte 16 % (Not Estab.); WBC Total Count 12.5 x10E3/uL (3.4-10.8)
--- NOTE | 2017-04-15 12:35 | PDOC.PN ---
- Subjective Encounter Start Date: 04/15/17 Encounter Start Time: 12:00 Subjective: f/u for recurrent seizure with associated resp failure post intubation. -: Off mech vent and tolerating RA. No seizure activity noted. -: Pt states he is not taking any seizure medications at home. - Objective Resuscitation Status: Resuscitation Status FULL:Full Resuscitation MAR Reviewed: Yes Vital Signs & Weight: Vital Signs (12 hours) Temp Pulse Resp Pulse Ox 04/15/17 12:00 97.7 F 04/15/17 07:43 97.9 F 73 17 97 04/15/17 07:00 97.9 F 04/15/17 04:00 99 F Weight Admit Weight 169 lb Weight 174 lb 9.698 oz Most Recent Monitor Data Heart Rate from ECG 77 NIBP 141/72 NIBP BP-Mean 83 Respiration from ECG 19 SpO2 97 I&O: 04/14/17 04/15/17 04/16/17 06:59 06:59 06:59 Intake Total 3940 2513 630 Output Total 1920 1880 640 Balance 2019 633 -10 Result Diagrams: 04/15/17 04:17 04/15/17 04:17 Additional Labs: Accuchecks 04/15/17 04/14/17 04/14/17 06:08 20:45 15:58 POC Glucose 128 H 89 98 EKG Reviewed by me: Yes (Tele - SR) Phys Exam - Physical Examination Constitutional: NAD HEENT: PERRLA, oral pharynx no lesions Neck: no JVD, supple Respiratory: no wheezing, clear to auscultation bilateral Cardiovascular: RRR Gastrointestinal: soft, non-tender, no distention, positive bowel sounds Musculoskeletal: no edema, pulses present Neurological: normal sensation, moves all 4 limbs Psychiatric: A&O x 3 Skin: normal turgor, cap refill <2 seconds Dx/Plan (1) Encephalopathy acute Code(s): G93.40 - ENCEPHALOPATHY, UNSPECIFIED Status: Acute Comment: Resolving, continue supportive measures (2) Status epilepticus Code(s): G40.901 - EPILEPSY, UNSP, NOT INTRACTABLE, WITH STATUS EPILEPTICUS Status: Acute Comment: Resolved, continue Keppra 1000mg po BID, seizure precautions, consult Neurology (3) Acute respiratory failure Code(s): J96.00 - ACUTE RESPIRATORY FAILURE, UNSP W HYPOXIA OR HYPERCAPNIA Status: Acute Qualifiers: Respiratory failure complication: hypoxia Qualified Code(s): J96.01 - Acute respiratory failure with hypoxia Comment: Extubated 04/14/17 (4) HIV (human immunodeficiency virus infection) Status: Chronic Comment: controlled viremia with current regimen, CD 4 counts >700 - Plan community mental health social worker, out of bed/ambulate, DVT proph w/SCDs Stable overall -: Change Keppra 1000mg po BID -: OOB/ambulate -: Consult Neurology -: KCL 40meq BID * AM lab: BMP * Transfer to floor
--- NOTE | 2017-04-15 13:16 | PRG ---
DATE OF SERVICE: 04/15/2017 Abdifatah Denton has no complaints. PHYSICAL EXAMINATION: VITAL SIGNS: He is afebrile, heart rate 77. Blood pressure 141/72, respiratory rate in the teens. LUNGS: Clear. HEART: Regular rhythm. ABDOMEN: Soft. LABORATORY DATA: White count 10.6, hemoglobin 11.8, platelets 138. Sodium 143, potassium 3.3, chloride 110, bicarbonate 24, BUN 9, creatinine 0.87. IMPRESSION: Status post seizures leading to intubation. I did review some old records and found documentation of seizure in the past and also an episode of s yncope which may have been a seizure. In any event, it appears that he clearly has developed a seizure disorder. The etiology is not entir aleksandar clear. His absolute CD4 count is up to 625 so he does appear to be taking his HIV meds as he claims, but he is not taking any seizure medication prior to this he says. In any event, he will transfer out to [facility] stroke unit. We will follow from a distance unless problems arise as there are no acute pulmonary issues at this time.
[2017-04-15 14:20] VITALS: BMI 29.0
[2017-04-15] MEDS: Potassium Chloride 20 MEQ TAB PO SCH (17:27)
[2017-04-15] MEDS: levETIRAcetam 500 MG TAB PO SCH (21:06)
[2017-04-16 05:48] LABS: Anion Gap 12 mmol/L (10-20); BUN (Urea Nitrogen) 10 mg/dL (8.4-25.7); Calc. Creatinine Clearance 106 mL/min (70-130); Calcium 9.2 mg/dL (7.8-10.44); Carbon Dioxide 23 mmol/L (23-31); Chloride 107 mmol/L (98-107); Estimated GFR-MDRD Greater than 90; Glucose 113 mg/dL (80-115); Potassium 3.3 mmol/L (3.5-5.1); Sodium 139 mmol/L (136-145)
[2017-04-16] MEDS ORDERED: Prezcobix 800 Mg-150 Mg Tablet PO SCH (09:00)
[2017-04-16] MEDS ORDERED: Dolutegravir Sodium [Tivicay] 50 MG TAB PO SCH (09:00)
[2017-04-16] MEDS: Potassium Chloride 20 MEQ TAB PO SCH (09:03)
[2017-04-16] MEDS: levETIRAcetam 500 MG TAB PO SCH (09:03)
[2017-04-16] MEDS ORDERED: Potassium Chloride 20 MEQ TAB PO SCH (11:00)
[2017-04-16 11:41] VITALS: BP 160/60; TEMP 98.6
--- NOTE | 2017-04-16 12:25 | EKG ---
Test Reason : Blood Pressure : / mmHG Vent. Rate : 134 BPM Atrial Rate : 134 BPM P-R Int : 000 ms QRS Dur : 096 ms QT Int : 308 ms P-R-T Axes : 000 101 013 degrees QTc Int : 459 ms Sinus tachycardia Rightward axis Abnormal ECG Confirmed by LEONEL IRVING M.D. ([id number]), continuity editor JED CHAPA ([id number]) on 04/16/2017 12:25:15 PM Referred By: Confirmed By:LEONEL IRVING M.D.
--- NOTE | 2017-04-16 12:36 | PDOC.EVN ---
Event Note - Event Note Event Note: [id number] DC SUMMARY DICTATED
--- NOTE | 2017-04-16 17:14 | DIS ---
DATE OF ADMISSION: 04/12/2017 DATE OF DISCHARGE: 04/16/2017 DISCHARGE DIAGNOSES: 1. Acute encephalopathy secondary to possible seizures. 2. Status epilepticus. 3. Human immunodeficiency virus. 4. Diabetes type 2. DISCHARGE CONDITION: Stable. DISPOSITION: Home. DISCHARGE INSTRUCTIONS: 1. Follow with PCP in 2-3 days. 2. Follow with ID in 2-3 days. 3. Follow up with neurologist in 2-3 days for EEG results. DISCHARGE MEDICATIONS: See the med rec form. HISTORY OF PRESENT ILLNESS: See initial HPI. ADDITIONAL INSTRUCTIONS: Advised the patient not to drive the car or operate heavy machinery or work ing in heights until cleared by Neurology. CONSULTANTS DURING THE HOSPITAL STAY: 1. Neurology. 2. Intensive Critical Care Team. 3. Infectious disease. PROCEDURES DURING THE HOSPITAL STAY: CTA head and neck. HOSPITAL COURSE: The patient is a 66-year-old male admitted secondary to status epilepticus and also altered mental status. 1. Status epilepticus. The patient was initially admitted to the ICU. The patient was seen by the Pulmonary team. He just improved during the hospital stay. The patient was initially on the ventila tor support due to seizures. The patient got extubated after seizures were controlled and the maximino bermudez is on room air at the time of discharge. 2. Status epilepticus. The patient was treated with seizure medications. The patient was seen by N eurology. Neurology recommended to discharge the patient home on p.o. Keppra. The patient was disch arged on home dose Keppra. The patient was suspected of not taking antiepileptics at home, so maximino bermudez was counseled. The patient continued taking seizure medications. 3. History of human immunodeficiency virus. The patient was seen by Infectious Disease. The maximino bermudez had blood cultures, one set was positive, but the repeat set was negative, so Infectious Disease re commended no further antibiotics and possible contamination. Recommended no antibiotics, so patient was advised to continue HIV medications at the time of discharge. 4. Acute metabolic encephalopathy. Mental status improved during the hospital stay, advised to foll ow up with Neurology as an outpatient. PHYSICAL EXAMINATION: VITAL SIGNS: On the day of discharge, temperature 98.6, heart rate 92, respiration rate 16, blood pr essure is 160/60 and pulse ox 100%. GENERAL: The patient appears comfortable. HEENT: Pupils are equal, round and reactive to light. Anterior nares patent. Nose normal. Ears no rmal. CARDIOVASCULAR SYSTEM: S1 and S2 present. RESPIRATORY SYSTEM: No wheezing, no rhonchi. GASTROINTESTINAL: Abdomen is soft and nontender. No guarding. PSYCHIATRIC: Mood is appropriate. CRANIAL NERVOUS SYSTEM: Awake and follows commands. Speech clear. LABORATORY DATA: At the time of discharge, sodium 139, potassium 3.3, chloride 107, CO2 of 23, BUN o f 10 and creatinine 0.75. White count 10.6, hemoglobin 11.8, and platelet count 138. The patient is stable at the time of discharge. DISCHARGE TIME SPENT: 35 minutes.
--- NOTE | 2017-04-16 22:54 | CON ---
DATE OF CONSULTATION: 04/15/2017 REFERRING PHYSICIAN: Dr. Teri Mustafa. REASON FOR CONSULTATION: Seizures. HISTORY OF PRESENT ILLNESS: Mr. Denton is a pleasant 66-year-old - [place] male, who has been consulted for evaluation of seizure. History is obtained from patient's medical chart as well as patient. Apparently, the patient has had multiple admissions due to his seizures, he was at home and was witnessed by a family member to have a generalized tonic clonic seizure. EMS was called and brought to the [facility], where he had to be intubated for airway protection. He does not remember having a seizure and he is supposed to be on Keppra 500 mg b.i.d. but he reports that he has not taken the medication. Since being admitted to the hospital, he has not had any more seizure. He is now extubated and has returned to his baseline. Denies any headache, chest pain, palpitation, numbness, tingling or weakness. PAST MEDICAL HISTORY: Significant for, 1. HIV. 2. Diabetes. 3. Seizure disorder. 4. Substance abuse. PAST SURGICAL HISTORY: Significant for reconstitution of facial surgery. SOCIAL HISTORY: He denies smoking or alcohol use. He does have a history of marijuana. FAMILY HISTORY: Noncontributory. CURRENT MEDICATIONS: Please review MAR. ALLERGIES: No known drug allergies. REVIEW OF SYSTEMS: As mentioned in the HPI, otherwise negative. PHYSICAL EXAMINATION: VITAL SIGNS: Blood pressure of 160/60, pulse of 92, temperature of 98.6, and respirations of 16, O2 sats of 100% on room air. GENERAL: Well-developed, well-nourished -[place] male in no apparent distress. RESPIRATORY: Clear to auscultation bilaterally. CARDIOVASCULAR: Regular rate and rhythm. NEUROLOGICAL: Mental status: The patient is awake, alert, oriented x3. Speech and language: Fluent speech. Cranial nerves: Pupils are 3 mm and reactive. Visual khan are intact. Extraocular muscles are intact. No nystagmus noted. Face symmetric. Tongue and uvula are midline. Motor exam showed normal tone and bulk with 5/5 strength in both upper and lower extremities. Sensory: Sensation is intact and symmetric. Deep tendon reflexes 2+ reflexes in both upper and lower extremities. Babinski: Plantar responses flexion bilaterally. Coordination intact to [id number] bilaterally. LABORATORY DATA: Reviewed, which included CBC, BMP, urinalysis, urine drug screen, plasma alcohol level, which is significant for hemoglobin 11.8, hematocrit 35.3, potassium of 3.3. Urine drug screen was positive for benzodiazepine and cannabinoids, otherwise unremarkable. IMAGING STUDIES: CT head without contrast was reviewed, which showed no acute intracranial abnormality. IMPRESSION: 1. Generalized tonic-clonic seizure. 2. Noncompliance with medication. 3. Substance abuse. Mr. Denton is a pleasant 66-year-old -[place] male with a history of seizure disorder, who presented with recurrent seizure. This is in the context of noncompliance with medication. I have again advised the patient that he needs to be compliant with his medication and taking Keppra as advised. I have also advised him of seizure precautions including no driving, no climbing ladders or roof tops and no operating heavy machinery. He needs to follow up with his neurologist or I will be happy to see him in my clinic in 4-6 weeks post-discharge. Thank you for your consultation. CICI
--- NOTE | 2017-04-20 15:49 | EEG ---
Referring Physician: Maria G POSADA EEG # [id number] TEST TYPE: ROUTINE PORTABLE INPATIENT REPORT: AN EEG USING THE INTERNATIONAL TEN-TWENTY SYSTEM OF ELECTRODE PLACEMENT WAS PERFORMED. The waking background is a low amplitude 9 hertz alpha frequency. The patient remained awake throughout the study. Photic stimulation was unremarkable. No epileptiform features were seen. IMPRESSION: THIS IS A NORMAL AWAKE EEG. Speeder Tender: QUE Ball Sorter: [email or web address]
== END 2017-04-16 13:21 | disposition home or self-care (01) | DRG 100 ==
LOC: ERS 13:21 → CCU 15:28 → 2SE 04-15 16:22
PROVIDERS: ADMIT Internal Medicine; ATTEND Internal Medicine
PROC: 5A1945Z Respiratory Ventilation, 24-96 Consecutive Hours (ICD-10-PCS; principal; 2017-04-12)
PROC: 0BH17EZ Insertion of Endotracheal Airway into Trachea, Via Natural or Artificial Opening (ICD-10-PCS; 2017-04-12)
DX: G40.401 Other generalized epilepsy and epileptic syndromes, not intractable, with status epilepticus (principal); J96.00 Acute respiratory failure, unspecified whether with hypoxia or hypercapnia; B20 Human immunodeficiency virus [HIV] disease; G93.41 Metabolic encephalopathy; I16.0 Hypertensive urgency; E11.9 Type 2 diabetes mellitus without complications; Z91.14 Patient's other noncompliance with medication regimen
CPT/HCPCS: 0042T; 31500; 36415; 36416; 51702; 70450; 70496; 71045; 80048; 80053; 80306; 80307; 81003; 81015; 82550; 82553; 82805; 84146; 84484; 85025; 85048; 85610; 85730; 86361; 86850; 86900; 86901; 87040; 87086; 87149; 93005; 94002; 94003; 95816; 95819; 96365; 96366; 96374; J0696; J1953; J2060; J2704; J7050

== ENCOUNTER 2017-04-17 04:27 | Emergency (ER) | payer MEDICARE, OTHER ==
[2017-04-17 04:58] LABS: #Eosinphils 0.1 thou/uL (0.0-0.7); #Lymphocytes 1.5 thou/uL (1.20-3.40); #Monocytes 0.6 thou/uL (0.11-0.59); #Neutrophils 8.9 thou/uL (1.40-6.50); %Basophils 0.3 % (0.0-1.0); %Eosinophils 0.6 % (0.0-10.0); %Lymphocytes 13.7 % (21.0-51.0); %Monocytes 5.3 % (0.0-10.0); %Neutrophils 80.1 % (42.0-75.0); Hemoglobin 12.1 g/dL (14.0-18.0); Mean Corpuscular HGB CONC 33.7 g/dL (32.0-36.0); Mean Corpuscular Hemoglobin 29.4 pg (27.0-31.0); Mean Corpuscular Volume 87.1 fl (80.0-94.0); Mean Platelet Volume 7.4 fL (7.4-10.4); Platelet Count 155 thou/uL (130-400); RBC Distribution Width 11.7 % (11.5-14.5); Red Blood Cell (RBC) Count 4.12 mill/uL (4.70-6.10)
[2017-04-17 05:10] LABS: INR-International Normal Ratio 1.2; PTT 23.3 SEC (22.9-36.1); Prothrombin Time 14.9 SEC (12.0-14.7)
[2017-04-17 05:16] LABS: Anion Gap 13 mmol/L (10-20); BUN (Urea Nitrogen) 10 mg/dL (8.4-25.7); Calc. Creatinine Clearance 0 mL/min (70-130); Calcium 8.9 mg/dL (7.8-10.44); Carbon Dioxide 23 mmol/L (23-31); Chloride 106 mmol/L (98-107); Estimated GFR-MDRD Greater than 90; Glucose 139 mg/dL (80-115); Lipase 27 U/L (8-78); Potassium 3.5 mmol/L (3.5-5.1); Sodium 138 mmol/L (136-145)
[2017-04-17 06:02] LABS: Bilirubin Negative (Negative); Blood, Urine Negative (Negative); Clarity CLEAR (Clear); Glucose, Urine (Dipstick) Negative (Negative); Leukocyte Negative (Negative); Nitrite Negative (Negative); Protein, Urine (Dipstick) Trace mg/dL (Neg-Trace); Specific Gravity, Urine 1.014 (1.002-1.036); pH, Urine 6.5 (5.0-9.0)
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
== END 2017-04-17 06:17 | disposition home or self-care (01) ==
LOC: ERS 04:27
DX: S30.1XXA Contusion of abdominal wall, initial encounter (principal); S80.812A Abrasion, left lower leg, initial encounter; S80.811A Abrasion, right lower leg, initial encounter; I10 Essential (primary) hypertension; V49.9XXA Car occupant (driver) (passenger) injured in unspecified traffic accident, initial encounter
CPT/HCPCS: 70450; 71045; 72125; 72170; 80048; 81003; 83690; 84146; 85025; 85610; 85730; 86850; 86900; 86901; G0390

== ENCOUNTER 2017-05-11 16:39 | Inpatient (IN) | payer MEDICARE, OTHER ==
[2017-05-11 17:03] LABS: #Eosinphils 0.1 thou/uL (0.0-0.7); #Lymphocytes 2.1 thou/uL (1.20-3.40); #Monocytes 0.4 thou/uL (0.11-0.59); #Neutrophils 5.4 thou/uL (1.40-6.50); %Basophils 0.2 % (0.0-1.0); %Eosinophils 1.8 % (0.0-10.0); %Lymphocytes 26.1 % (21.0-51.0); Hemoglobin 12.4 g/dL (14.0-18.0); Mean Corpuscular HGB CONC 32.5 g/dL (32.0-36.0); Mean Corpuscular Hemoglobin 28.6 pg (27.0-31.0); Mean Corpuscular Volume 88.2 fl (80.0-94.0); Mean Platelet Volume 7.2 fL (7.4-10.4); Platelet Count 162 thou/uL (130-400); RBC Distribution Width 11.8 % (11.5-14.5); Red Blood Cell (RBC) Count 4.34 mill/uL (4.70-6.10)
[2017-05-11] MEDS ORDERED: Lorazepam 2 MG/ML VIAL ONE ×2 (17:15→19:12)
[2017-05-11 17:29] LABS: ALT (SGPT) 11 U/L (8-55); AST (SGOT) 14 U/L (5-34); Albumin 4.1 g/dL (3.4-4.8); Alkaline Phosphatase 84 U/L (40-150); Anion Gap 11 mmol/L (10-20); BUN (Urea Nitrogen) 15 mg/dL (8.4-25.7); Bilirubin, Total 0.3 mg/dL (0.2-1.2); Calc. Creatinine Clearance 0 mL/min (70-130); Calcium 9.2 mg/dL (7.8-10.44); Carbon Dioxide 25 mmol/L (23-31); Chloride 105 mmol/L (98-107); Estimated GFR-MDRD 88; Globulin 3.5 g/dL (2.4-3.5); Glucose 137 mg/dL (80-115); Potassium 3.7 mmol/L (3.5-5.1); Protein, Total 7.6 g/dL (5.8-8.1); Sodium 137 mmol/L (136-145)
[2017-05-11 17:52] LABS: PTT 26.8 SEC (22.9-36.1); Prothrombin Time 13.7 SEC (12.0-14.7)
[2017-05-11] MEDS ORDERED: Succinylcholine Chloride 20 MG/ML 10 ml SYRINGE FS ONE (18:44)
[2017-05-11] MEDS ORDERED: Propofol 500 MG/50 ML VIAL ONE (19:05)
[2017-05-11] MEDS ORDERED: Propofol 1,000 MG/100 ML VIAL IV ONE (19:06)
[2017-05-11] MEDS ORDERED: fentaNYL Citrate/PF 2,000 MCG in Sodium Chloride 0.9% 60 ML IV SCH ×3 (19:30→22:58)
[2017-05-11 19:39] LABS: Actual Bicarbonate (HCO3a) 22.4 mEq/L (22-26); CO2 Tension 64.2 mmHg (35.0-45.0); O2 Tension (PaO2) 280.4 mmHg (80.0-100.0); pH, Arterial 7.16 (7.35-7.45)
[2017-05-11 19:40] LABS: Base Excess (BEa) -7.1 mEq/L (0 (+/-) 2.5); Hematocrit-ABG 43.6 % (42.0-52.0); Hemoglobin (Hb) 13.1 g/dL (14.0-18.0)
[2017-05-11 19:41] LABS: Analyzer IN Cardio ER; Calcium, Ionized 1.2 mmol/L (1.12-1.30); Puncture Site LR
--- NOTE | 2017-05-11 19:45 | RAD ---
CHEST ONE VIEW 05/11/17 HISTORY: Chest pain. COMPARISON: 04/17/17. FINDINGS: Cardiac silhouette is magnified by projection. Pulmonary vasculature is now engorged. Mediastinum is midline with endotracheal catheter projecting over the thoracic inlet and nasogastric tube descending to the abdomen. No evidence of pneumothorax. No lobar consolidation. IMPRESSION: 1. Pulmonary vascular congestion. 2. Endotracheal catheter is in good radiographic position. POS: [facility]
--- NOTE | 2017-05-11 19:52 | CT ---
CT HEAD NONCONTRAST 05/11/17 Performed on emergency bases at 1742 hours. HISTORY: Seizure. COMPARISON: 04/17/17. FINDINGS: There is no evidence of acute intracranial hemorrhage or infarct. The ventricles appear normal in siz e, shape and position. There is no mass effect or shift of midline structures. The visualized paranas al sinuses remain well aerated. IMPRESSION: No acute intracranial abnormalities are demonstrated on noncontrast CT head. Findings were called to Dr. Gracia of the Emergency Department at 1745 hours. Code CR POS: [facility]
[2017-05-11] MEDS ORDERED: levETIRAcetam In NaCl (Iso-Os) 1,000 MG in Premix Bag 1 BAG IVPB SCH ×2 (20:00)
[2017-05-11] MEDS ORDERED: Morphine 2 MG/ML SYRINGE SLOW IVP PRN ×2 (21:22→22:58)
[2017-05-11] MEDS ORDERED: Lorazepam 2 MG/ML VIAL SLOW IVP PRN ×3 (21:22→22:58)
[2017-05-11] MEDS ORDERED: Propofol 1,000 MG/100 ML VIAL IV PRN ×2 (21:22→22:58)
[2017-05-11 21:50] VITALS: BMI 25.7
[2017-05-11] MEDS ORDERED: Ondansetron HCl/PF 4 MG/2 ML Vial IVP PRN (22:05)
[2017-05-11] MEDS ORDERED: Ondansetron ODT 4 MG TAB PO PRN (22:05)
[2017-05-11] MEDS ORDERED: Acetaminophen 650 MG Suppository PR PRN (22:05)
[2017-05-11] MEDS ORDERED: hydrALAZINE 20 MG/ML VIAL SLOW IVP PRN (22:05)
[2017-05-11] MEDS ORDERED: cloNIDine 0.1 MG TAB PO PRN (22:05)
[2017-05-11] MEDS ORDERED: Sedation Protocol FS ONE (22:24)
[2017-05-11] MEDS ORDERED: CCU Electrolyte Replacement 1 EACH FS ONE (22:24)
[2017-05-11] MEDS: Sodium Chloride 0.9% 1,000 ML IV SCH (22:58)
--- NOTE | 2017-05-11 23:05 | HP ---
DATE OF ADMISSION: 05/11/2017 PRIMARY CARE PHYSICIAN: Dr. Zach Chamberlain CHIEF COMPLAINT: Recurrent seizures. HISTORY OF PRESENT ILLNESS: This is a 66-year-old -[place]ian male who presents to [facility] after apparently acting abnormally then followed by seizing. Patient with a kn own chronic seizure disorder with recurrent admissions including intubation for airway protection mos t recently as early 04/2017. Patient was admitted between 04/12/2017 to 04/16/2017 for recurrent ton ic-clonic seizure disorder requiring intubation and continuation of Keppra. Patient with a known his tory of noncompliance as well as Cannabis abuse prompting the admissions previously. Patient nataliya velazquez had complained of recent cough without other specific illness or documented fever. Patient amador chicas was observed having tonic-clonic seizure by family members and EMS personnel was notified. Armida dumont was brought to the emergency room apparently sustaining one seizure after transfer to the [facility] care unit. Patient was evaluated in the emergency room and given IV Keppra 1000 mg in addition to fentanyl, propofol, and Ativan. CT imaging of the brain showed no acute intracranial process and enrique lopez was intubated for airway protection in the emergency room. PAST MEDICAL HISTORY: 1. Recurrent seizure disorder with history of noncompliance. 2. Human immunodeficiency virus with current retroviral therapy. 3. Hypertension. 4. History of medical noncompliance. 5. Substance abuse with THC. 6. Diabetes mellitus, type 2. PAST SURGICAL HISTORY: Reviewed and negative. CURRENT MEDICATIONS: 1. Keppra 1000 mg p.o. b.i.d. 2. Intelence 200 mg p.o. b.i.d. 3. Tivicay 50 mg p.o. daily. ALLERGIES: No known drug allergies. FAMILY HISTORY: No inheritable diseases per family report. SOCIAL HISTORY: Patient resides in the [place], [place] area. No alcohol or tobacco use. Admits to mar ijuana use regularly. REVIEW OF SYSTEMS: Unobtainable, as patient on current mechanical ventilation and sedated. PHYSICAL EXAMINATION: VITAL SIGNS: Currently, blood pressure 118/76, pulse 96, respiratory rate 18, temperature 99.7 degre es Fahrenheit, O2 saturation 100% on 50% FiO2 by mechanical ventilation. GENERAL APPEARANCE: This is a 66-year-old -Jordanian male, sedate on current mechanical ventil ation. HEENT: Pupils are minimally reactive to light and accommodation. Extraocular muscles are minimally reactive and do not track. Nares patent, but OP is clear with ET tube and OGT in place. NECK: Supple, no cervical adenopathy, no thyromegaly, no carotid bruits, no JVD appreciated. Cervic al spine with full passive range of motion. CHEST: Lungs are clear to auscultation bilaterally. CARDIOVASCULAR: S1, S2 without noted murmur. ABDOMEN: Rounded, soft, nontender, nondistended. Bowel sounds are positive in all four quadrants. T here is no hepatosplenomegaly, no abdominal bruits. EXTREMITIES: Warm and dry with fair turgor. No clubbing, cyanosis, or asymmetric edema appreciated. Pulses palpable distally at the dorsalis pedis, posterior tibial, and popliteal arteries bilaterall y. Capillary refill less than 2 seconds. NEUROLOGIC: Sedate on current mechanical ventilation. GENITOURINARY: Kimble catheter in place with scant clear urine. PERTINENT LABORATORY AND X-RAY FINDINGS: Basic metabolic profile within normal limits. Glucose 137, calcium 9.2. LFTs within normal limits. Prolactin 55.6, previously noted 9.12 on 04/17/2017. CBC showed a white blood cell count of 8.0, hemoglobin 12.4, hematocrit 38.3, platelet count 162 with nor mal differential. ABG initially at the time of presentation showed pH of 7.16, pCO2 of 64, pO2 of 28 0, O2 saturation 99.6% on 50% FIO2. CT of the brain without contrast dated 05/11/2017 showed no acut e intracranial process. Portable chest x-ray dated 05/11/2017 showed pulmonary vascular prominence. ET tube in good position. EKG dated 05/11/2017 by my interpretation shows sinus tachycardia with h eart rates in the low 100s. Normal R-wave progression noted in the precordial leads. Normal axis. Q-waves noted in lead III. ASSESSMENT AND PLAN: 1. Recurrent tonic-clonic seizures. Patient will be admitted to the Critical Care Unit. Patient in itially treated with IV Ativan and Keppra 1000. We will continue Keppra 1000 mg IV q.12 hours. We wi ll consult Neurology service in the a.m. for further recommendations. Likely patient's presentation due to noncompliance with patient having a history of medical noncompliance. Last EEG performed on 0 04/13/2017 showed normal awake EEG. Ativan p.r.n. breakthrough seizures. 2. Acute hypoxic respiratory failure. Patient was placed on mechanical ventilation with SIMV. We w ill continue 50% FIO2 with PEEP of 5. Titrate to clinical response. Consult Pulmonology Service in the a.m. Recheck ABG and portable chest x-ray in the a.m. 3. Substance abuse. Patient with a longstanding history of THC use. We will offer resources for ce ssation on discharge. 4. Question of diabetes mellitus, type 2. Insulin sliding scale for reflexive coverage. Accu-Cheks q.6 hours. 5. Prophylaxis. Sequential compression devices while in bed. Pepcid 20 mg IV q.12 hours. General seizure precautions. 6. Code status is FULL. Surrogate medical decision maker is patient's son, Leandro Pitts.
[2017-05-12 05:15] LABS: Hemoglobin 11.5 g/dL (14.0-18.0); Mean Corpuscular HGB CONC 33.3 g/dL (32.0-36.0); Mean Corpuscular Hemoglobin 29.3 pg (27.0-31.0); Mean Corpuscular Volume 88.1 fl (80.0-94.0); Mean Platelet Volume 7.5 fL (7.4-10.4); Platelet Count 151 thou/uL (130-400); RBC Distribution Width 11.8 % (11.5-14.5); Red Blood Cell (RBC) Count 3.91 mill/uL (4.70-6.10); White Blood Cell (WBC) Count 12.4 thou/uL (4.8-10.8)
[2017-05-12 05:16] LABS: Lymphocytes 28 % (21-51); MDiff Complete? YES; Monocytes 3 % (0-10); Neutrophil 65 % (42-75); Reactive Lymphocytes 4 % (0-10)
[2017-05-12 05:21] LABS: Amphetamine Not Detected (NotDetected); Barbiturates Screen Not Detected (NotDetected); Benzodiazepine Screen Detected (NotDetected); Cocaine Metabolite Screen Not Detected (NotDetected); Medtox Control Line Valid? VALID (VALID); Medtox Reader # READER 1; Methadone Not Detected (NotDetected); Methamphetamine Not Detected (NotDetected); Opiate Screen Not Detected (NotDetected); Oxycodone Screen Not Detected (NotDetected); Phencyclidine (PCP) Not Detected (NotDetected); THC/Cannabinoid Screen Detected (NotDetected); Tricyclic Screen Not Detected (NotDetected)
[2017-05-12 05:31] LABS: ALT (SGPT) 12 U/L (8-55); AST (SGOT) 15 U/L (5-34); Albumin 3.4 g/dL (3.4-4.8); Alkaline Phosphatase 73 U/L (40-150); Anion Gap 11 mmol/L (10-20); BUN (Urea Nitrogen) 13 mg/dL (8.4-25.7); Bilirubin, Total 0.6 mg/dL (0.2-1.2); Calc. Creatinine Clearance 83 mL/min (70-130); Calcium 8.6 mg/dL (7.8-10.44); Carbon Dioxide 21 mmol/L (23-31); Chloride 108 mmol/L (98-107); Estimated GFR-MDRD Greater than 90; Globulin 2.9 g/dL (2.4-3.5); Glucose 103 mg/dL (80-115); Potassium 3.4 mmol/L (3.5-5.1); Protein, Total 6.3 g/dL (5.8-8.1); Sodium 137 mmol/L (136-145)
[2017-05-12 07:27] LABS: Actual Bicarbonate (HCO3a) 21.5 mEq/L (22-26); Base Excess (BEa) -0.9 mEq/L (0 (+/-) 2.5); CO2 Tension 28.8 mmHg (35.0-45.0); Hematocrit-ABG 15.6 % (42.0-52.0); Hemoglobin (Hb) 11.1 g/dL (14.0-18.0); O2 Tension (PaO2) 184.4 mmHg (80.0-100.0); pH, Arterial 7.49 (7.35-7.45)
[2017-05-12 07:28] LABS: Analyzer IN Cardio OR; Calcium, Ionized 1.1 mmol/L (1.12-1.30); Puncture Site RBA
[2017-05-12] MEDS ORDERED: DC Sedation Protocol FS ONE (07:31)
--- NOTE | 2017-05-12 08:37 | CON ---
DATE OF CONSULTATION: 05/12/2017 Thirty-five minutes critical care time. HISTORY OF PRESENT ILLNESS: The patient came in last night with seizures and was intubated for airwa y protection. He is a 67-year-old male with a known seizure disorder and HIV, apparently he is very noncompliant with medications. He has been seen by Dr. Salazar in our group in the past. He is curren tly intubated on mechanical ventilation. He wakes up, follows all commands. PAST MEDICAL HISTORY: 1. Seizure disorder. 2. Human immunodeficiency virus. 3. Hypertension. 4. Medical noncompliance. 5. Marijuana abuse. 6. Diabetes mellitus type 2. PAST SURGICAL HISTORY: Unremarkable. MEDICATIONS PRIOR TO ADMISSION: He is supposed to be taking Keppra 1000 mg b.i.d., Intelence 200 mg b.i.d. and Tivicay 50 mg daily and aspirin. ALLERGIES: None. FAMILY MEDICAL HISTORY: Unremarkable. SOCIAL HISTORY: Smokes marijuana regularly. Does not smoke tobacco. Does not consume alcohol. REVIEW OF SYSTEMS: Twelve point review of systems otherwise negative. PHYSICAL EXAMINATION: VITAL SIGNS: Pulse 92, blood pressure 121/57, O2 sat 100%, respiratory rate 12, temperature 98. GENERAL: He is awake, alert, follows commands, in no distress. HEENT: Pupils react. Sclerae icteric. Oropharynx clear. NECK: No adenopathy, JVD, or bruits. LUNGS: Clear to auscultation without wheeze or rhonchi. CARDIOVASCULAR: S1, S2 regular. ABDOMEN: Soft, nontender. EXTREMITIES: No clubbing or cyanosis. NEUROLOGIC: Grossly intact throughout. SKIN: Shows no obvious lesions. LABORATORY DATA: PH 7.49, pCO2 28, pO2 184 on SIMV, rate 18, tidal volume 500, PEEP 5, pressure supp ort 10, FiO2 50%. Sodium 137, potassium 3.4, chloride 108, CO2 21, BUN 13, creatinine 0.9, glucose 1 03. White blood cell count 12.4, hematocrit 34.5, platelet count 151. Drug screen is positive for b enzodiazepines and cannabinoids. The chest x-ray shows perhaps early changes in the right upper lobe, although some of those were pres ent on 04/17/2017. ASSESSMENT: 1. Seizure disorder. 2. Human immunodeficiency virus with medical noncompliance. PLAN: The patient has been extubated. He will remain in the Critical Care Unit for a few hours and then he can be transferred to the stroke floor.
[2017-05-12] MEDS ORDERED: Prevnar 13-Val Conj/PF 0.5 ML SYRINGE IM ONE (09:00)
[2017-05-12] MEDS ORDERED: FLU VACC TS2017-18 (>65YR) 0.5 ML SYRINGE IM ONE (09:00)
--- NOTE | 2017-05-12 09:01 | PDOC.PN ---
- Subjective Encounter Start Date: 05/12/17 Encounter Start Time: 08:57 Mr. Denton was seen today in follow-up of seizure disorder. He was just extubated this morning. He says he is not yet quite himself. He seems a bit disoriented. He knows the year and Month, and that he is in the hospital, He does not know what happened. When asked if he was taking his medication for seizures- he says he was not aware of any medications for seizures, and he says he did not know he had seizures. He is aware he has HIV, and takes some " capsules " for that, but is not aware of any seizures. - Objective Resuscitation Status: Resuscitation Status FULL:Full Resuscitation MAR Reviewed: Yes Vital Signs & Weight: Vital Signs (12 hours) Temp Pulse Resp BP Pulse Ox 05/12/17 07:25 91 18 100 05/12/17 06:24 100 05/12/17 06:23 72 112/54 L 05/12/17 06:00 18 05/12/17 04:00 18 05/12/17 03:00 98 F 05/12/17 02:00 18 05/12/17 00:00 18 05/11/17 23:00 98 F 05/11/17 22:00 18 05/11/17 21:13 98.9 F 88 18 100 Most Recent Monitor Data Heart Rate from ECG 75 NIBP 112/54 NIBP BP-Mean 63 Respiration from ECG 18 SpO2 100 I&O: 05/11/17 05/12/17 05/13/17 06:59 06:59 06:59 Intake Total 810 Output Total 445 Balance 365 Result Diagrams: 05/12/17 04:26 05/12/17 04:26 Phys Exam - Physical Examination HEENT: PERRLA Respiratory: no wheezing, no rales, no rhonchi, clear to auscultation bilateral Cardiovascular: RRR, no significant murmur, no rub Gastrointestinal: soft, non-tender, positive bowel sounds Musculoskeletal: no edema Dx/Plan (1) Seizures Code(s): R56.9 - UNSPECIFIED CONVULSIONS Status: Acute (2) DM type 2 (diabetes mellitus, type 2) Status: Chronic Qualifiers: Diabetes mellitus complication status: without complication (3) HIV (human immunodeficiency virus infection) Status: Chronic Comment: controlled viremia with current regimen, CD 4 counts >700 - Plan * Seizure- acute recurrent seizure likely from medical non-compliance. He has been re-started on Keppra. He may need an MRI to further characterize evaluate for [employer] lesions especially given his history of HIV, ( it appears is last MRI was in 2016). Will also check his CD4 count and HIV viral load * Case management consult for Home Health to help with medications * HIV- as above- it appears stable, and controlled- will check the above * Await Neurology evaluation * Hopefully out of the ICU later today.
[2017-05-12] MEDS: levETIRAcetam In NaCl (Iso-Os) 1,000 MG in Premix Bag 1 BAG IVPB SCH ×4 (09:42→21:12)
[2017-05-12] MEDS: Sodium Chloride 0.9% 1,000 ML IV SCH ×3 (09:43→20:04)
[2017-05-12] MEDS: Famotidine/PF 20 mg/2ml Vial SLOW IVP SCH ×2 (09:43→21:12)
--- NOTE | 2017-05-12 19:19 | PRG ---
DATE OF SERVICE: 05/12/2017 NEUROLOGIC FOLLOWUP NOTE CONSULTING PHYSICIAN: Hospitalist Service. Mr. Denton was brought back into the emergency room by EMS when he was witnessed to have some seizure activity at home. He apparently had a recurrent seizure in the emergency room and was given 1000 mg of Keppra IV. He has been kept on 1000 mg b.i.d. since he was transiently intubated. He is now alma ke and appropriate. He is without any complaints of pain or injury as a result of the seizure. His past workup included a CT of the brain and EEG, which were both unremarkable. He should have bee n discharged on Keppra last visit, but apparently they were not given a prescription. I will be happ y to follow up with him as an outpatient. He can be discharged at your discretion.
[2017-05-13 06:17] VITALS: TEMP 98.6
[2017-05-13 07:28] VITALS: BP 135/65
[2017-05-13] MEDS: Famotidine/PF 20 mg/2ml Vial SLOW IVP SCH (08:20)
[2017-05-13] MEDS: levETIRAcetam In NaCl (Iso-Os) 1,000 MG in Premix Bag 1 BAG IVPB SCH ×2 (08:20)
[2017-05-13] MEDS: Sodium Chloride 0.9% 1,000 ML IV SCH (08:21)
--- NOTE | 2017-05-13 09:32 | PDOC.PN ---
- Subjective Encounter Start Date: 05/13/17 Encounter Start Time: 09:30 Mr. Denton was seen today in follow-up of recurrent seizures. He does not have any complaints this morning. He has not had any further seizures. - Objective Resuscitation Status: Resuscitation Status FULL:Full Resuscitation MAR Reviewed: Yes Vital Signs & Weight: Vital Signs (12 hours) Temp Pulse Resp BP Pulse Ox 05/13/17 08:38 98.6 F 68 14 99 05/13/17 07:28 98.6 F 68 14 135/65 100 05/13/17 04:00 98.6 F 81 18 131/56 L 100 05/13/17 00:10 99.6 F 80 18 134/67 100 05/12/17 23:00 98 F Weight Weight 172 lb 1 oz Most Recent Monitor Data Heart Rate from ECG 75 NIBP 125/50 NIBP BP-Mean 67 Respiration from ECG 18 SpO2 100 I&O: 05/12/17 05/13/17 05/14/17 06:59 06:59 06:59 Intake Total 810 959.5 480 Output Total 445 2350 250 Balance 365 -1390.5 230 Result Diagrams: 05/12/17 04:26 05/12/17 04:26 Phys Exam - Physical Examination HEENT: PERRLA Respiratory: no wheezing, no rales, no rhonchi, clear to auscultation bilateral Cardiovascular: RRR, no significant murmur, no rub Gastrointestinal: soft, non-tender, positive bowel sounds Musculoskeletal: no edema Dx/Plan (1) Seizures Code(s): R56.9 - UNSPECIFIED CONVULSIONS Status: Acute (2) DM type 2 (diabetes mellitus, type 2) Status: Chronic Qualifiers: Diabetes mellitus complication status: without complication (3) HIV (human immunodeficiency virus infection) Status: Chronic Comment: controlled viremia with current regimen, CD 4 counts >700 - Plan * Seizures- will continue Keppra at 1,000mg twice a day * I have again reiterated that he has a diagnosis of seizures, and had him repeat this back to me. I also told him that he is unable to drive, or swim ect. until cleared by Neurology. I also had him repeat this back to me * He is stable for discharge home today.
--- NOTE | 2017-05-13 11:10 | PRG ---
DATE OF SERVICE: 05/13/2017 SUBJCETIVE: Mr. Denton is doing well. OBJECTIVE: GENERAL: He has no complaints. VITAL SIGNS: He is afebrile, heart rate 60, respiratory rate 14, oximetry is 99 on room air. LUNGS: Clear. HEART: Regular rhythm. ABDOMEN: Soft and nontender. EXTREMITIES: Without asymmetry. IMPRESSION: Status post seizures. He denies missing any of his seizure medicine, although there hav e been intermittent note stating he is marginally compliant. He is stable to move out of intermediate care to the stroke unit. We will sign off.
[2017-05-13 15:24] LABS: %CD4 (Helper/Inducer) 29.9 % (30.8-58.5); Absolute CD4 688 /uL (359-1519); Lymphocytes/Gated Cell Count 2.3 x10E3/uL (0.7-3.1); Total Lymphocyte 19 % (Not Estab.); WBC Total Count 11.9 x10E3/uL (3.4-10.8)
--- NOTE | 2017-05-13 17:28 | DIS ---
DATE OF ADMISSION: 05/11/2017 DATE OF DISCHARGE: 05/13/2017 PRIMARY CARE PHYSICIAN: Dr. Zach Chamberlain. DISCHARGE DISPOSITION: Home. PRIMARY DISCHARGE DIAGNOSES: 1. Seizure disorder. 2. History of human immunodeficiency virus, on HAART therapy. 3. Hypertension. 4. History of medical noncompliance. 5. Diabetes mellitus, type 2. 6. History of marijuana abuse. DISCHARGE MEDICATIONS: Include Keppra 1000 mg twice daily, Intelence 200 mg twice a day and Tivicay 50 mg daily. PROCEDURES DONE DURING ADMISSION: The patient had a CT scan of the brain in which there were no acut e intracranial abnormalities. CODE STATUS: FULL CODE. ALLERGIES: No known drug allergies. HOSPITAL COURSE: Mr. Denton is a pleasant 67-year-old gentleman who presented to the emergency room with recurrent seizures. He required intubation for protection of his airway. He was placed on IV K eppra, which controlled his seizures. The following day, the patient was extubated and I was able to talk with him about his seizure disorder. He apparently seemed as if he had no recollection that he was ever diagnosed with seizures. He had good memory that he is HIV positive and what those medicat ions are that he takes them, but for some reason, he did not seem aware of being diagnosed with seizu res and has not been taking any seizure medicine as a result. I reiterated that he does in fact have seizures and that he needs to be on medications for them. I had him repeat this back to me and I al so explained to him that he is not able to drive or operate machinery or swim or any such activities, which would put him at risk of harming himself or others if he were to have a seizure. He would nee d to abstain from these things until he is cleared by Neurology. This came to the great shock to him , but he did voice understanding and did repeat this back to me and asked me what he could do in the interim, and I told him that he just cannot drive, he will have to have someone take him around inste ad. The patient is therefore being discharged and should follow up with his primary care in 1 week a s well as with Neurology in 1-2 weeks as well.
[2017-05-14 14:16] LABS: HIV-1 Quantitative, RNA PCR <20 copies/mL (.)
== END 2017-05-13 10:56 | disposition home or self-care (01) | DRG 100 ==
LOC: ERS 16:39 → CCU 21:11 → IMCU/EMU 05-13 00:10
PROVIDERS: ADMIT Internal Medicine; ATTEND Internal Medicine
PROC: 0BH17EZ Insertion of Endotracheal Airway into Trachea, Via Natural or Artificial Opening (ICD-10-PCS; principal; 2017-05-11)
PROC: 5A1935Z Respiratory Ventilation, Less than 24 Consecutive Hours (ICD-10-PCS; 2017-05-11)
DX: G40.409 Other generalized epilepsy and epileptic syndromes, not intractable, without status epilepticus (principal); J96.01 Acute respiratory failure with hypoxia; B20 Human immunodeficiency virus [HIV] disease; I10 Essential (primary) hypertension; E11.9 Type 2 diabetes mellitus without complications; F12.10 Cannabis abuse, uncomplicated; Z91.14 Patient's other noncompliance with medication regimen; Z79.82 Long term (current) use of aspirin; Z79.899 Other long term (current) drug therapy
CPT/HCPCS: 31500; 36415; 51702; 70450; 71045; 80053; 80306; 82805; 84146; 85007; 85025; 85027; 85048; 85610; 85730; 86361; 87536; 90471; 90670; 90682; 93005; 94003; 94760; 96365; 96366; 96368; 96375; 96376; G0008; G0009; J1953; J2060; J2270; J2704; J3010; J7050; Q2036; S0028

== ENCOUNTER 2017-06-12 13:19 | Emergency (ER) | payer MEDICARE, OTHER ==
[2017-06-12 16:41] LABS: #Basophils 0.1 thou/uL (0.0-0.2); #Lymphocytes 2.3 thou/uL (1.20-3.40); #Monocytes 0.8 thou/uL (0.11-0.59); #Neutrophils 12.4 thou/uL (1.40-6.50); %Basophils 0.4 % (0.0-1.0); %Eosinophils 0.1 % (0.0-10.0); %Monocytes 4.9 % (0.0-10.0); %Neutrophils 79.7 % (42.0-75.0); Hemoglobin 13.3 g/dL (14.0-18.0); Mean Corpuscular HGB CONC 34.5 g/dL (32.0-36.0); Mean Corpuscular Hemoglobin 29.3 pg (27.0-31.0); Mean Corpuscular Volume 85.1 fl (80.0-94.0); Mean Platelet Volume 7.3 fL (7.4-10.4); Platelet Count 149 thou/uL (130-400); Red Blood Cell (RBC) Count 4.54 mill/uL (4.70-6.10); White Blood Cell (WBC) Count 15.6 thou/uL (4.8-10.8)
[2017-06-12 17:00] LABS: ALT (SGPT) 18 U/L (8-55); AST (SGOT) 20 U/L (5-34); Albumin 4.1 g/dL (3.4-4.8); Alkaline Phosphatase 76 U/L (40-150); Anion Gap 12 mmol/L (10-20); BUN (Urea Nitrogen) 9 mg/dL (8.4-25.7); Bilirubin, Total 0.6 mg/dL (0.2-1.2); Calc. Creatinine Clearance 0 mL/min (70-130); Calcium 9.4 mg/dL (7.8-10.44); Carbon Dioxide 22 mmol/L (23-31); Chloride 107 mmol/L (98-107); Estimated GFR-MDRD Greater than 90; Globulin 3.2 g/dL (2.4-3.5); Glucose 91 mg/dL (80-115); Potassium 3.3 mmol/L (3.5-5.1); Protein, Total 7.3 g/dL (5.8-8.1); Sodium 138 mmol/L (136-145)
== END 2017-06-12 17:55 | disposition home or self-care (01) ==
LOC: ERS 13:19
DX: G40.909 Epilepsy, unspecified, not intractable, without status epilepticus (principal); I10 Essential (primary) hypertension; B20 Human immunodeficiency virus [HIV] disease; Z79.899 Other long term (current) drug therapy
CPT/HCPCS: 36415; 80053; 85025; 94760

== ENCOUNTER 2017-06-25 17:25 | Inpatient (IN) | payer MEDICARE, OTHER ==
[2017-06-25] MEDS ORDERED: Midazolam HCl 5 mg/ml Vial ONE (17:26)
[2017-06-25] MEDS ORDERED: levETIRAcetam In NaCl (Iso-Os) 1,500 MG in Premix Bag 1 BAG IVPB SCH ×2 (17:45)
[2017-06-25 17:57] LABS: #Basophils 0.1 thou/uL (0.0-0.2); #Lymphocytes 2.5 thou/uL (1.20-3.40); #Monocytes 0.4 thou/uL (0.11-0.59); #Neutrophils 7.8 thou/uL (1.40-6.50); %Basophils 0.8 % (0.0-1.0); %Eosinophils 0.4 % (0.0-10.0); %Monocytes 3.8 % (0.0-10.0); %Neutrophils 72.1 % (42.0-75.0); Hemoglobin 14.3 g/dL (14.0-18.0); Mean Corpuscular Hemoglobin 29.2 pg (27.0-31.0); Mean Corpuscular Volume 85.9 fl (80.0-94.0); Mean Platelet Volume 7.2 fL (7.4-10.4); Platelet Count 198 thou/uL (130-400); RBC Distribution Width 11.8 % (11.5-14.5); Red Blood Cell (RBC) Count 4.91 mill/uL (4.70-6.10); White Blood Cell (WBC) Count 10.8 thou/uL (4.8-10.8)
--- NOTE | 2017-06-25 18:09 | CT ---
CT OF THE BRAIN WITHOUT CONTRAST: 06/25/17 COMPARISON: 05/11/17 HISTORY: Seizures and altered mental status. TECHNIQUE: Multiple contiguous axial images were obtained in a CT of the brain without contrast. FINDINGS: The brain is normal in morphology and attenuation without focal lesions or confluent areas of infarct ion. There is no evidence of hydrocephalus, intracranial hemorrhage or extra-axial fluid collections. The calvarium and overlying soft tissues are unremarkable. The visualized paranasal sinuses and mastoid air cells are well aerated. IMPRESSION: No evidence of acute intracranial abnormality. POS: [facility]
--- NOTE | 2017-06-25 18:10 | RAD ---
SINGLE VIEW OF THE CHEST: 06/25/17 COMPARISON: 05/11/17 HISTORY: Seizure and altered mental status. FINDINGS: Single view of the chest shows a normal sized cardiomediastinal silhouette. There is fullness along t he right upper mediastinum, unchanged. No consolidation or pleural effusion are seen. IMPRESSION: Nonspecific right upper mediastinal fullness. A CT of the chest with contrast is recommended for furt her evaluation. POS: [facility]
[2017-06-25 18:19] LABS: ALT (SGPT) 16 U/L (8-55); AST (SGOT) 17 U/L (5-34); Albumin 4.5 g/dL (3.4-4.8); Alkaline Phosphatase 103 U/L (40-150); Anion Gap 18 mmol/L (10-20); BUN (Urea Nitrogen) 11 mg/dL (8.4-25.7); Bilirubin, Total 0.3 mg/dL (0.2-1.2); CK (CPK) 138 U/L (30-200); Calc. Creatinine Clearance 0 mL/min (70-130); Calcium 9.4 mg/dL (7.8-10.44); Carbon Dioxide 20 mmol/L (23-31); Chloride 107 mmol/L (98-107); Estimated GFR-MDRD 80; Globulin 3.4 g/dL (2.4-3.5); Glucose 132 mg/dL (80-115); Magnesium 2.1 mg/dL (1.6-2.6); Potassium 3.9 mmol/L (3.5-5.1); Protein, Total 7.9 g/dL (5.8-8.1); Sodium 141 mmol/L (136-145)
[2017-06-25 18:22] LABS: Acetaminophen Less than 6.0 mcg/mL (10.0-30.0); Alcohol Less than 10 mg/dL (Less than 10); Salicylate Less than 8.0 mg/dL (15.0-30.0)
[2017-06-25 18:24] LABS: CKMB 0.8 ng/mL (0-6.6); Troponin I Less than 0.010 ng/mL (< 0.028)
[2017-06-25] MEDS ORDERED: Succinylcholine Chloride 20 MG/ML 10 ml SYRINGE FS ONE (18:53)
[2017-06-25] MEDS ORDERED: Propofol 1,000 MG/100 ML VIAL IV ONE ×2 (19:12→21:11)
[2017-06-25] MEDS ORDERED: Ampicillin/Sulbactam 1.5 GM in Sodium Chloride 0.9% 100 ML IVPB SCH (20:00)
[2017-06-25 20:11] LABS: Bilirubin Negative (Negative); Blood, Urine Small (Negative); Clarity CLEAR (Clear); Glucose, Urine (Dipstick) 100 mg/dL (Negative); Leukocyte Negative (Negative); Nitrite Negative (Negative); Protein, Urine (Dipstick) > or equal to 300 mg/dL (Neg-Trace); Specific Gravity, Urine 1.014 (1.002-1.036); Urobilinogen 0.2 mg/dL (0.2-1.0); pH, Urine 7.5 (5.0-9.0)
[2017-06-25 20:15] LABS: Bacteria/HPF None Seen HPF (None Seen); Hyaline Casts/LPF 0-3 HYALINE CAST LPF (0-3 Hyaline); Pathc Cast-AUWi Flag 0.72 (0-2.49); Squamous Epithelial 0-3 HPF (0-3); WBC/HPF 0-3 HPF (0-3)
[2017-06-25 20:15] LABS: CO2 Tension 43.8 mmHg (35.0-45.0); pH, Arterial 7.32 (7.35-7.45)
[2017-06-25 20:16] LABS: Actual Bicarbonate (HCO3a) 21.9 mEq/L (22-26); Base Excess (BEa) -4.1 mEq/L (0 (+/-) 2.5); Hematocrit-ABG 39.8 % (42.0-52.0); Hemoglobin (Hb) 13.3 g/dL (14.0-18.0); O2 Tension (PaO2) 165.9 mmHg (80.0-100.0)
[2017-06-25 20:17] LABS: Analyzer IN Cardio ER; Calcium, Ionized 1.2 mmol/L (1.12-1.30); Puncture Site RRA
[2017-06-25 20:22] LABS: Amphetamine Not Detected (NotDetected); Barbiturates Screen Not Detected (NotDetected); Benzodiazepine Screen Not Detected (NotDetected); Cocaine Metabolite Screen Not Detected (NotDetected); Medtox Control Line Valid? VALID (VALID); Medtox Reader # READER 1; Methadone Not Detected (NotDetected); Methamphetamine Not Detected (NotDetected); Opiate Screen Not Detected (NotDetected); Oxycodone Screen Not Detected (NotDetected); Phencyclidine (PCP) Not Detected (NotDetected); THC/Cannabinoid Screen Detected (NotDetected); Tricyclic Screen Not Detected (NotDetected)
[2017-06-25 20:25] LABS: RBC/HPF 0-3 HPF (0-3); Renal Epithelial None Seen HPF (0-3); Transitional Epithelial NONE SEEN HPF (0-3)
--- NOTE | 2017-06-25 20:48 | RAD ---
SINGLE VIEW OF THE CHEST: 06/25/17 COMPARISON: 06/25/17 HISTORY: Endotracheal tube placement. FINDINGS: Single view of the chest shows a normal sized cardiomediastinal silhouette. The endotracheal tube is seen with its tip between the clavicles. An NG tube is seen with its tip in the stomach but its side port in the distal esophagus. There is opacity on the right upper mediastinum. There is volume loss in the right thorax and there may be atelectasis of the right upper lobe. IMPRESSION: 1. Appropriate position of endotracheal tube. 2. The NG tube needs to be advanced approximately 4 to 5 cm. 3. There is right hilar fullness with atelectasis of the right upper lobe. A CT of the chest wit h contrast is recommended for further evaluation. POS: [facility]
[2017-06-25] MEDS ORDERED: levETIRAcetam In NaCl (Iso-Os) 1,000 MG in Premix Bag 1 BAG IVPB SCH ×2 (21:00)
[2017-06-25] MEDS ORDERED: Propofol BOLUS 1,000 MG/100 ML VIAL IV PRN ×2 (21:14)
[2017-06-25] MEDS ORDERED: Propofol 1,000 MG/100 ML VIAL IV PRN (21:14)
[2017-06-25] MEDS ORDERED: Morphine 4 MG/ML VIAL SLOW IVP PRN (21:14)
[2017-06-25] MEDS ORDERED: Fentanyl CADD 250 ML IVPB SCH (21:14)
[2017-06-25] MEDS ORDERED: Lorazepam 2 MG/ML VIAL SLOW IVP PRN (21:14)
[2017-06-25] MEDS ORDERED: DISCONTINUE PREVIOUS NARCOTIC PAIN MEDICATIONS AND BENZODIAZEPINES FS SCH ×2 (21:14)
[2017-06-25] MEDS ORDERED: Fentanyl BOLUS 250 ML IVPB PRN ×2 (21:14)
[2017-06-25] MEDS ORDERED: fentaNYL Citrate/PF 2,000 MCG in Sodium Chloride 0.9% 60 ML IV SCH (21:15)
[2017-06-25] MEDS: Clindamycin/D5W 900 mg/50 ml Premix Bag IVPB SCH (22:20)
--- NOTE | 2017-06-25 23:15 | HP ---
DATE OF ADMISSION: 06/25/2017 TIME OF SERVICE: 1950 hours. CHIEF COMPLAINT: Seizure. HISTORY OF PRESENT ILLNESS: Mr. Denton is a 67-year-old male with multiple medical admissions here f or recurrent seizures due to nonadherence to Keppra, who presented in the emergency department after having a tonic-clonic seizure. The patient is currently intubated after having a witnessed seizure and a possible aspiration event. We were subsequently called for admission. Review of the record shows that he does have a seizure disorder, was last seen normal about one hour prior to admission by his roommate and who said the patient had not been having any alcohol or drug u se. The patient is must be on Keppra and Ambien and his HIV medicines and had a grand-mal seizure. Patient was brought in by EMS. Patient was given Ativan and IV Keppra, subsequently developed respir atory distress and probably aspirated. He was given etomidate and succinylcholine and was subsequent ly intubated and placed on the ventilator. He has been continued on propofol drip and we were subsequently called for admission. Per the ER doctor during the intubation process, he felt that there was something plastic like in the patient's trachea. He attempted to get a better look at it, was unable to and wanted us to be aware so I can get the Pulmonary Critical Care doctor. The patient is otherwise not coherent. He is sedated, intubated present. PAST MEDICAL HISTORY: 1. History of seizure disorder. 2. Medical noncompliance, recurrence of seizures secondary to not taking Keppra. 3. HIV, supposedly on current antiretroviral therapy. 4. Hypertension. 5. History of polysubstance abuse with tobacco, THC, and benzodiazepine. 6. Diabetes mellitus type 2. PAST SURGICAL HISTORY: Per review is negative. HOME MEDICATIONS: The patient will be on Dolutegravir 50 mg daily, Intelence 200 mg p.o. b.i.d., lito unavir cobicistat 1 tab daily, and Keppra 1000 mg p.o. b.i.d. ALLERGIES: NKDA. FAMILY HISTORY: Negative for clotting or bleeding disorders we are aware of. SOCIAL HISTORY: Per previous records show the patient to reside here in [place], [place]. No known alco hol or tobacco use, but uses marijuana regularly. REVIEW OF SYSTEMS: Currently unobtainable. He is currently on mechanical ventilation and sedated. PHYSICAL EXAMINATION: VITAL SIGNS: Temperature most recent 100.0, pulse 114, blood pressure 161/83, respiratory rate 36, s at 98% on the ventilator. HEENT: Normocephalic and atraumatic, his pupils are minimally reactive in 2-3 mm. He has no eye dev iation. There is scleral icterus. Mucous membranes are moist and orally intubated. NECK: Supple without lymphadenopathy, JVD, or thyromegaly. LUNGS: Clear anteriorly. He has a faint bibasilar crackles. No prolonged expiratory phase. No whe ezes. CARDIOVASCULAR: He is tachycardic and regular. Normal S1 and S2. He does have 2/6 systolic ejectio n murmur best heard at the right sternal border. ABDOMEN: Soft, is nontender, nondistended, slightly tympanitic. He has good bowel sounds. EXTREMITIES: No cyanosis, no clubbing with 1+ edema of the bilateral lower extremities from the ankl e level down. SKIN: Dry, well perfused without any particular lesions. NEUROLOGIC: Not testable due to intubated and sedated status. MUSCULOSKELETAL: Normal to inspection. He has no inflamed joints. No palpable effusions. LABORATORY EVALUATION: CMP shows sodium 141, potassium 3.9, chloride 107, bicarbonate 20, BUN 11, cr eatinine 1.10, and glucose 132. Calcium was 9.4, mag was 2.1. Total bilirubin was normal. Liver fu nctions completely within normal limits. CK-MB was normal at 0.8. Troponin I was less than 0.010 an d TSH was normal at 1.79. CBC showed a white count 10.8, hemoglobin 14.3, hematocrit 42.2, platelet count is 198,000 with a normal differential. ABG post-intubation about 1 hour showed a pH of 7.32, p CO2 of 43.8 and pO2 of 165, oxygen saturation 91.1% and that is reportedly on 50% FiO2. Urinalysis s howed greater than or equal to 300 protein, 100 glucose, small blood, otherwise negative. Urine tox was negative except for THC. Most recent HIV testing here was on 05/12/2017 that showed a total and absolute CD4 count of 688, [facility] is normal and his HIV quantitative PCR was undetectable and apparently HIV 1 and 2 antigen and ant ibody screen was positive and reflux. Hepatitis B surface antigen is negative. Hepatitis C antibody total is negative. RADIOGRAPHIC STUDIES: Brain CT on 06/25/2017 showed no acute intracranial abnormality. Chest x-ray pre-intubation showed nonspecific right upper mediastinal fullness. A CT was recommended at some poi nt. Post-intubation chest x-ray showed appropriate position of endotracheal tube, NG tube that is be ing advanced 4-5 cm and right hilar fullness with again recommend CT. ASSESSMENT AND PLAN: 1. Acute hypoxemic respiratory failure, status post intubation, likely secondary to possible aspirat ion. The patient will be placed on clindamycin IV. We will continue mechanical ventilation and cons ult Pulmonary Critical Care. The patient will be placed on the ventilator and admitted to the [facility] [place] [facility] care unit. 2. Seizure in a patient with known seizure disorder. Patient is noncompliant with medications. Kep pra level tonight was undetectable. We will continue IV Keppra for now. 3. Human immunodeficiency virus positive, controlled. On 05/12/2017, lab showed an undetectable vir al load and normal T-cell count. We will continue his HIV regimen when he is able to take p.o. 4. Marijuana abuse, chronic. 5. Diabetes mellitus type 2. We will use sliding scale insulin for correction. 6. Metabolic encephalopathy as above.
[2017-06-25] MEDS ORDERED: Ventilator Sedation Protocol 1 EACH FS ONE (23:42)
[2017-06-25] MEDS ORDERED: Ondansetron HCl/PF 4 MG/2 ML Vial IVP PRN (23:42)
[2017-06-26] MEDS ORDERED: Propofol BOLUS 1,000 MG/100 ML VIAL IV PRN ×2 (00:01)
[2017-06-26] MEDS ORDERED: Morphine 4 MG/ML VIAL SLOW IVP PRN (00:01)
[2017-06-26] MEDS ORDERED: DISCONTINUE PREVIOUS NARCOTIC PAIN MEDICATIONS AND BENZODIAZEPINES FS SCH ×2 (00:01)
[2017-06-26] MEDS ORDERED: Propofol 1,000 MG/100 ML VIAL IV PRN (00:01)
[2017-06-26] MEDS ORDERED: Lorazepam 2 MG/ML VIAL SLOW IVP PRN (00:01)
[2017-06-26] MEDS ORDERED: Fentanyl BOLUS 250 ML IVPB PRN ×2 (00:01)
[2017-06-26] MEDS ORDERED: fentaNYL Citrate/PF 2,000 MCG in Sodium Chloride 0.9% 60 ML IV SCH (00:01)
[2017-06-26] MEDS: Sodium Chloride 0.9% 1,000 ML IV SCH ×3 (03:11→21:16)
[2017-06-26] MEDS ORDERED: Famotidine 40 MG/4 ML VIAL SLOW IVP SCH (03:30)
[2017-06-26] MEDS: Famotidine 40 MG/4 ML VIAL SLOW IVP SCH ×3 (03:34→21:16)
[2017-06-26 04:52] LABS: #Lymphocytes 2.6 thou/uL (1.20-3.40); #Monocytes 0.7 thou/uL (0.11-0.59); #Neutrophils 10.8 thou/uL (1.40-6.50); %Basophils 0.2 % (0.0-1.0); %Eosinophils 0.3 % (0.0-10.0); %Lymphocytes 18.4 % (21.0-51.0); %Monocytes 4.9 % (0.0-10.0); %Neutrophils 76.2 % (42.0-75.0); Hemoglobin 12.9 g/dL (14.0-18.0); Mean Corpuscular HGB CONC 33.8 g/dL (32.0-36.0); Mean Corpuscular Hemoglobin 29.6 pg (27.0-31.0); Mean Corpuscular Volume 87.6 fl (80.0-94.0); Mean Platelet Volume 7.7 fL (7.4-10.4); Platelet Count 164 thou/uL (130-400); RBC Distribution Width 11.8 % (11.5-14.5); Red Blood Cell (RBC) Count 4.34 mill/uL (4.70-6.10); White Blood Cell (WBC) Count 14.2 thou/uL (4.8-10.8)
[2017-06-26 05:02] LABS: ALT (SGPT) 13 U/L (8-55); AST (SGOT) 13 U/L (5-34); Albumin 3.5 g/dL (3.4-4.8); Alkaline Phosphatase 77 U/L (40-150); Anion Gap 10 mmol/L (10-20); BUN (Urea Nitrogen) 8 mg/dL (8.4-25.7); Bilirubin, Total 0.5 mg/dL (0.2-1.2); Calc. Creatinine Clearance 89 mL/min (70-130); Calcium 8.5 mg/dL (7.8-10.44); Carbon Dioxide 25 mmol/L (23-31); Chloride 110 mmol/L (98-107); Estimated GFR-MDRD Greater than 90; Glucose 100 mg/dL (80-115); Potassium 3.6 mmol/L (3.5-5.1); Protein, Total 6.5 g/dL (5.8-8.1); Sodium 141 mmol/L (136-145)
[2017-06-26] MEDS: Clindamycin/D5W 900 mg/50 ml Premix Bag IVPB SCH ×3 (05:28→22:55)
[2017-06-26] MEDS: levETIRAcetam In NaCl (Iso-Os) 1,000 MG in Premix Bag 1 BAG IVPB SCH ×4 (09:02→21:17)
[2017-06-26 09:08] LABS: Actual Bicarbonate (HCO3a) 24.3 mEq/L (22-26); O2 Tension (PaO2) 111.6 mmHg (80.0-100.0); pH, Arterial 7.45 (7.35-7.45)
[2017-06-26 09:09] LABS: Base Excess (BEa) 0.5 mEq/L (0 (+/-) 2.5); Calcium, Ionized 1.2 mmol/L (1.12-1.30); Hematocrit-ABG 36.7 % (42.0-52.0); Hemoglobin (Hb) 11.6 g/dL (14.0-18.0)
[2017-06-26 09:10] LABS: Puncture Site RBA
--- NOTE | 2017-06-26 13:21 | PDOC.PN ---
- Subjective Encounter Start Date: 06/26/17 Encounter Start Time: 09:20 Pt seen for followup re; acute hypoxic respiratory failure. Intubated, unable to complete ROS. - Objective Resuscitation Status: Resuscitation Status FULL:Full Resuscitation MAR Reviewed: Yes Vital Signs & Weight: Vital Signs (12 hours) Temp Pulse Resp BP Pulse Ox 06/26/17 11:50 78 14 100 06/26/17 11:30 98.7 F 06/26/17 10:00 14 06/26/17 08:01 65 110/54 L 06/26/17 08:00 98.8 F 14 06/26/17 07:40 98.8 F 69 14 100 06/26/17 06:00 14 06/26/17 04:00 98.3 F 14 06/26/17 02:29 78 06/26/17 02:00 14 Most Recent Monitor Data Heart Rate from ECG 85 NIBP 141/56 NIBP BP-Mean 86 Respiration from ECG 20 SpO2 96 I&O: 06/25/17 06/26/17 06/27/17 06:59 06:59 06:59 Intake Total 937 Output Total 1975 210 Balance -1038 -210 Result Diagrams: 06/26/17 03:20 06/26/17 03:20 EKG Reviewed by me: Yes (Tele: NSR) Phys Exam - Physical Examination Intubated HEENT: moist MMs ETT Neck: no nodes Dependent crackles Cardiovascular: RRR Gastrointestinal: soft No spontaneous limb movements Deviation from normal: Unable to assess Dx/Plan (1) Acute respiratory failure Code(s): J96.00 - ACUTE RESPIRATORY FAILURE, UNSP W HYPOXIA OR HYPERCAPNIA Status: Acute Qualifiers: Respiratory failure complication: hypoxia Qualified Code(s): J96.01 - Acute respiratory failure with hypoxia Comment: Likely secondary to aspiration. PCCM consulted. (2) Aspiration into airway Code(s): T17.908A - UNSP FB IN RESP TRACT, PART UNSP CAUSING OTH INJURY, INIT Status: Suspected Comment: suspected, continue antibiotics as below (3) Seizure Code(s): R56.9 - UNSPECIFIED CONVULSIONS Status: Acute Comment: continue IV Keppra; ? medication noncompliance. Await neurology consult. (4) DM type 2 (diabetes mellitus, type 2) Status: Chronic Qualifiers: Diabetes mellitus complication status: without complication Comment: continue accuchecks, insulin sliding scale. (5) HIV (human immunodeficiency virus infection) Status: Chronic Comment: controlled - Plan continue antibiotics, respiratory therapy * . Review of Systems - Medications/Allergies Allergies/Adverse Reactions: Allergies Allergy/AdvReac Type Severity Reaction Status Date / Time No Known Allergies Allergy Verified 05/12/17 02:54 Medications: Current Medications Clindamycin Phosphate/Dextrose (Cleocin) 900 mg IVPB Q8HR DEBBIE Last Admin: 06/26/17 05:28 Dose: 900 mg Famotidine (Pepcid) 20 mg SLOW IVP Q12HR DEBBIE Last Admin: 06/26/17 10:29 Dose: 20 mg Fentanyl Citrate 2,000 mcg/ (Sodium Chloride) 100 mls @ 0 mls/hr IV INF DEBBIE PRN Reason: As Directed Last Admin: 06/25/17 23:21 Dose: 100 mls Levetiracetam 1,000 mg/ Device 100 mls @ 200 mls/hr IVPB BID DEBBIE Last Admin: 06/26/17 09:02 Dose: 100 mls Sodium Chloride (Normal Saline 0.9%) 1,000 mls @ 100 mls/hr IV .Q10H DEBBIE Last Admin: 06/26/17 11:40 Dose: 1,000 mls Fentanyl Citrate 2,000 mcg/ (Sodium Chloride) 100 mls @ 0 mls/hr IV INF DEBBIE; Per Protocol PRN Reason: Protocol Stop: 07/26/17 00:01 Fentanyl Citrate (Fentanyl Bolus) 250 mls @ 0 mls/hr IVPB PRN PRN; As Directed PRN Reason: Breakthrough pain/agitation Stop: 07/26/17 00:01 Lorazepam (Ativan) 2 mg SLOW IVP Q1H PRN PRN Reason: Breakthrough agitation Stop: 07/25/17 21:14 Last Admin: 06/25/17 22:58 Dose: 2 mg Lorazepam (Ativan) 2 mg SLOW IVP Q1H PRN PRN Reason: Breakthrough agitation Stop: 07/26/17 00:01 Morphine Sulfate (Morphine) 2 mg SLOW IVP Q1H PRN PRN Reason: breakthrough pain/agitation Stop: 07/26/17 00:01 Discontinue Previous Narcotic Pain Medications And Benzodiazepines 1 each FS .ONE DEBBIE Stop: 07/26/17 00:01 Ondansetron HCl (Zofran) 4 mg IVP Q6H PRN PRN Reason: Nausea/Vomiting Propofol (Diprivan) 1,000 mg IV INF PRN; Protocol PRN Reason: TO ACHIEVE GOAL RASS Stop: 07/25/17 21:14 Propofol (Diprivan Bolus) 20 mg IV Q5MIN PRN PRN Reason: BREAKTHROUGH AGITATION Stop: 07/25/17 21:14 Propofol (Diprivan) 1,000 mg IV INF PRN; Protocol PRN Reason: TO ACHIEVE GOAL RASS Stop: 07/26/17 00:01 Propofol (Diprivan Bolus) 20 mg IV Q5MIN PRN PRN Reason: BREAKTHROUGH AGITATION Stop: 07/26/17 00:01
--- NOTE | 2017-06-26 13:58 | CON ---
DATE OF CONSULTATION: 06/26/2017 REFERRING PROVIDER: Ramesh Javed M.D. REASON FOR CONSULTATION: Recurrent seizures. HISTORY OF PRESENT ILLNESS: Mr. Denton is a 67-year-old -Citizen Of [place] male well known to me from his previous admissions, presented with recurrent seizures. Patient has a history of noncompliance w ith medications and has been admitted multiple times to [facility] for seizures. Appare ntly, he was at home and his roommate had observed him to have a generalized tonic-clonic seizure. H e had called EMS and patient was brought to the Emergency Room where he subsequently developed respir atory distress and had to be intubated. According to the nurse he was just extubated early this morn ing. There has not been any seizure type activity since being admitted to the hospital. He currentl y denies any headache, chest pain, palpitation, numbness, tingling or weakness. PAST MEDICAL HISTORY: Significant for hypertension, seizure disorder, history of HIV, history of med ication noncompliance, diabetes, and history of polysubstance abuse. PAST SURGICAL HISTORY: None significant. SOCIAL HISTORY: He has a history of marijuana use. He does not smoke or drink alcohol. FAMILY HISTORY: Noncontributory. CURRENT MEDICATIONS: Please review MAR. ALLERGIES: No known drug allergies. REVIEW OF SYSTEMS: As mentioned above in HPI, otherwise negative. PHYSICAL EXAMINATION: VITAL SIGNS: Blood pressure of 141/56, heart rate of 85, temperature of 98.7, respirations of 20, O2 sats 96% room air. GENERAL: Well-developed, well-nourished -Citizen [place] male in no apparent distress. RESPIRATORY: Clear to auscultation bilaterally. CARDIOVASCULAR: Regular rate and rhythm. NEUROLOGIC: Mental status: The patient is awake, alert, and oriented x3. Speech and language: Flu ent speech. Hoarse voice noted, this is likely secondary to post-extubation. Tongue and uvula are m idline. Motor exam showed normal tone and bulk with a 5/5 strength in both upper and lower extremiti es. There is no pronator drift noted. Sensory: Sensation is intact and symmetric. Deep tendon ref lexes; 2+ reflexes in both upper and lower extremities. Babinski: Plantar responses flexion bilater ally. Coordination intact to [id number] bilaterally. Gait and Romberg are not tested. LABORATORY DATA: Reviewed, which included CBC, CMP, TSH, troponin CPK, CK-MB, urine drug screen and urinalysis, which is significant for WBC of 14.2, hemoglobin 12.9, hematocrit 38.1. Urinalysis, urin e drug screen was positive for cannabinoids, otherwise unremarkable. Keppra level was less than 2.0. IMAGING STUDIES: CT head without contrast was reviewed which showed no acute intracranial abnormalit y. IMPRESSION: 1. Recurrent seizures, likely secondary to medication noncompliance. 2. Medication noncompliance. ASSESSMENT AND PLAN: Mr. Denton is a pleasant 67-year-old -Citizen [place] male who has history of s eizure disorder who is noncompliant with his medication, who presents to repeatedly with recurrent se izures. I have again advised him during this hospitalization that he really needs to take his medica tions and explained to him the risk for not taking his medication can result in status epilepticus, w hich can cause serious injury to the brain including . He understood this risk. I have explain ed to him on seizure precautions including no driving. Continue current dose of Keppra 1000 mg twice daily. Thank you for consultation.
--- NOTE | 2017-06-26 16:02 | CON ---
DATE OF CONSULTATION: 06/26/2017 HISTORY OF PRESENT ILLNESS: Mr. Denton is a 67-year-old male with HIV. He presents frequently with seizures. He is usually subtherapeutic on medication or documented not have been taking his medicine s. He had a witnessed seizure and was transported to the emergency department where he was intubated. He would awaken and follow commands and was felt he was a candidate for extubation today. PAST MEDICAL HISTORY: Remarkable for, 1. HIV. 2. History of medication noncompliance. 3. History of seizure disorder. 4. History of hypertension. SOCIAL HISTORY: He is nonsmoker, nondrinker. FAMILY HISTORY: Negative for lung disease in early age. MEDICATIONS: Have been reviewed. ALLERGIES: He has no drug allergies. REVIEW OF SYSTEMS: Not obtainable. PHYSICAL EXAMINATION: VITAL SIGNS: Afebrile this morning. Blood pressure 104/41, respiratory rate was in the teens, and h eart rate was in the 70s. HEENT: Pupils react. Sclerae is anicteric. He moved all his extremities equally. LUNGS: Clear. HEART: Regular rhythm. S1 and S2 are normal. ABDOMEN: Soft and nontender. No masses. EXTREMITIES: No clubbing, cyanosis, or edema. NEUROLOGIC: Nonfocal. LABORATORY DATA: White count 14.2, hemoglobin 12.9, platelets 164. Sodium 141, potassium 3.6, chlor ameena 110, bicarbonate 25, BUN 8, creatinine 0.9. PH this morning 7.45, CO2 of 36, and pO2 111. Chest radiograph done at 8:00 last night showed some partial atelectasis of the right upper lobe. I suspect this was related to a possible right mainstem intubation early. We will repeat a radiograph in the morning. I felt he was a candidate for extubation. This has been done successfully. Neurology has been consu lted. We will continue to follow. Critical care time 35 minutes.
[2017-06-27] MEDS: Sodium Chloride 0.9% 1,000 ML IV SCH ×2 (04:02→13:30)
[2017-06-27] MEDS: Clindamycin/D5W 900 mg/50 ml Premix Bag IVPB SCH ×3 (05:06→23:31)
--- NOTE | 2017-06-27 08:16 | RAD ---
PORTABLE CHEST: COMPARISON: 06/25/17 study. HISTORY: Followup of right upper lobe atelectasis. FINDINGS: The right upper lobe parenchymal changes seen on the prior examination have largely resolved. There is now development of some density in the right base suggesting some atelectatic change or infiltrati ve change in this area. The endotracheal and NG tubes have been removed. IMPRESSION: Resolution of the right upper lobe atelectasis with development of some increased density in the righ t base probably related to atelectasis versus infiltrate. POS: LYSSAH
[2017-06-27] MEDS: Famotidine 40 MG/4 ML VIAL SLOW IVP SCH ×2 (09:24→22:38)
[2017-06-27] MEDS: levETIRAcetam In NaCl (Iso-Os) 1,000 MG in Premix Bag 1 BAG IVPB SCH ×4 (09:24→22:39)
--- NOTE | 2017-06-27 12:47 | PRG ---
DATE OF SERVICE: 06/27/2017 Mr. Bertin butler. He remembers me from last time he was here. PHYSICAL EXAMINATION: VITAL SIGNS: He is afebrile, heart rate 78, blood pressure 135/79, respiratory rate is 20. GENERAL: He is completely comfortable appearing. LUNGS: His lungs are clear. HEART: Regular rhythm. ABDOMEN: Abdomen is soft. EXTREMITIES: Without asymmetry. I discussed his seizure medications. He tells me he ran out of his seizure medication, but he cannot recall the name of what he is supposed to be on or when he ran out. Chest radiograph reviewed. The right upper lobe atelectatic changes have resolved. I suspect he was transiently right mainstem intubated. In my opinion, he can be switched to p.o. medications. He should be transitioned out of the ICU today.
--- NOTE | 2017-06-27 13:28 | PDOC.PN ---
- Subjective Encounter Start Date: 06/27/17 Encounter Start Time: 09:00 Pt seen for followup re: seizure. Awake and alert, denies chest pain, shortness of breath, fevers or chills. - Objective Resuscitation Status: Resuscitation Status FULL:Full Resuscitation MAR Reviewed: Yes Vital Signs & Weight: Vital Signs (12 hours) Temp Pulse Resp Pulse Ox 06/27/17 12:00 99.7 F H 06/27/17 08:00 98.9 F 74 18 100 06/27/17 04:00 98.4 F Weight Weight 174 lb 13.225 oz Most Recent Monitor Data Heart Rate from ECG 78 NIBP 135/79 NIBP BP-Mean 88 Respiration from ECG 25 SpO2 100 I&O: 06/26/17 06/27/17 06/28/17 06:59 06:59 06:59 Intake Total 937 2811.8 935 Output Total 1975 2285 1020 Balance -1038 526.8 -85 Result Diagrams: 06/26/17 03:20 06/26/17 03:20 EKG Reviewed by me: Yes (Tele: NSR) Phys Exam - Physical Examination Constitutional: NAD HEENT: moist MMs Neck: supple Respiratory: clear to auscultation bilateral Cardiovascular: RRR Gastrointestinal: soft Neurological: moves all 4 limbs Psychiatric: normal affect Dx/Plan (1) Seizure Code(s): R56.9 - UNSPECIFIED CONVULSIONS Status: Acute Comment: continue keppra. Appreciate neurology input. (2) Acute respiratory failure Code(s): J96.00 - ACUTE RESPIRATORY FAILURE, UNSP W HYPOXIA OR HYPERCAPNIA Status: Acute Qualifiers: Respiratory failure complication: hypoxia Qualified Code(s): J96.01 - Acute respiratory failure with hypoxia Comment: Likely secondary to aspiration. Pt was extubated yesterday. (3) Aspiration into airway Code(s): T17.908A - UNSP FB IN RESP TRACT, PART UNSP CAUSING OTH INJURY, INIT Status: Suspected Comment: continue antibiotics as below (4) DM type 2 (diabetes mellitus, type 2) Status: Chronic Qualifiers: Diabetes mellitus complication status: without complication Comment: accuchecks, insulin sliding scale. (5) HIV (human immunodeficiency virus infection) Status: Chronic Comment: controlled - Plan * . Review of Systems - Review of Systems Constitutional: negative: fever, chills, sweats, weakness, malaise Respiratory: negative: Cough, Shortness of Breath, SOB with Excertion, Pleuritic Pain, Wheezing Cardiovascular: negative: chest pain, palpitations, orthopnea, paroxysmal nocturnal dyspnea, edema, light headedness - Medications/Allergies Allergies/Adverse Reactions: Allergies Allergy/AdvReac Type Severity Reaction Status Date / Time No Known Allergies Allergy Verified 05/12/17 02:54 Medications: Current Medications Clindamycin Phosphate/Dextrose (Cleocin) 900 mg IVPB Q8HR [facility] Last Admin: 06/27/17 13:27 Dose: 900 mg Famotidine (Pepcid) 20 mg SLOW IVP Q12HR [facility] Last Admin: 06/27/17 09:24 Dose: 20 mg Levetiracetam 1,000 mg/ Device 100 mls @ 200 mls/hr IVPB BID [facility] Last Admin: 06/27/17 09:24 Dose: 100 mls Sodium Chloride (Normal Saline 0.9%) 1,000 mls @ 100 mls/hr IV .Q10H [facility] Last Admin: 06/27/17 04:02 Dose: 1,000 mls Ondansetron HCl (Zofran) 4 mg IVP Q6H PRN PRN Reason: Nausea/Vomiting
[2017-06-28] MEDS ORDERED: Melatonin 3 MG TAB PO PRN ×2 (00:40→00:45)
[2017-06-28] MEDS: Sodium Chloride 0.9% 1,000 ML IV SCH ×2 (00:41→02:28)
[2017-06-28] MEDS: Clindamycin/D5W 900 mg/50 ml Premix Bag IVPB SCH (06:13)
[2017-06-28 07:50] VITALS: BP 171/83; TEMP 98.9
[2017-06-28] MEDS ORDERED: levETIRAcetam 500 MG TAB PO SCH (09:00)
[2017-06-28] MEDS ORDERED: Amoxicillin/Potassium Clav 875 MG TAB PO SCH (09:00)
[2017-06-28 09:45] LABS: #Basophils 0.1 thou/uL (0.0-0.2); #Eosinphils 0.1 thou/uL (0.0-0.7); #Lymphocytes 2.3 thou/uL (1.20-3.40); #Monocytes 0.4 thou/uL (0.11-0.59); %Basophils 0.8 % (0.0-1.0); %Lymphocytes 26.6 % (21.0-51.0); %Monocytes 4.1 % (0.0-10.0); %Neutrophils 67.6 % (42.0-75.0); Hemoglobin 13.3 g/dL (14.0-18.0); Mean Corpuscular Hemoglobin 29.4 pg (27.0-31.0); Mean Corpuscular Volume 86.6 fl (80.0-94.0); Mean Platelet Volume 7.9 fL (7.4-10.4); Platelet Count 148 thou/uL (130-400); RBC Distribution Width 11.7 % (11.5-14.5); Red Blood Cell (RBC) Count 4.53 mill/uL (4.70-6.10); White Blood Cell (WBC) Count 8.8 thou/uL (4.8-10.8)
[2017-06-28 10:10] LABS: Anion Gap 14 mmol/L (10-20); BUN (Urea Nitrogen) 6 mg/dL (8.4-25.7); Calc. Creatinine Clearance 88 mL/min (70-130); Calcium 9.3 mg/dL (7.8-10.44); Carbon Dioxide 18 mmol/L (23-31); Chloride 109 mmol/L (98-107); Estimated GFR-MDRD Greater than 90; Glucose 144 mg/dL (80-115); Potassium 3.5 mmol/L (3.5-5.1); Sodium 137 mmol/L (136-145)
[2017-06-28] MEDS: Famotidine 40 MG/4 ML VIAL SLOW IVP SCH (10:16)
--- NOTE | 2017-06-28 12:15 | DIS ---
DATE OF ADMISSION: 06/25/2017 DATE OF DISCHARGE: 06/28/2017 PRIMARY CARE PHYSICIAN: Dr. Zach Chamberlain. DISCHARGE DIAGNOSES: 1. Seizure. 2. Acute respiratory failure. 3. Suspected aspiration. 4. Medication noncompliance. CONDITION OF PATIENT ON THE DAY OF DISCHARGE: Stable. I assessed Mr. Denton on the day of discharge . He denies any chest pain or shortness of breath. He denies any fevers or chills. Vital signs are stable. S1 and S2 are heard, regular. Lungs are clear to auscultation bilaterally. CONSULTATIONS DURING THIS HOSPITALIZATION: Pulmonology, Dr. Salazar; and Neurology, Dr. Estelle Peacock. DISCHARGE MEDICATIONS: Amoxicillin/potassium clavulanate 875 mg 2 times a day for 1 week, darunavir/ cobicistat 1 tablet daily, dolutegravir 50 mg daily, Intelence 200 mg daily, and Keppra 1000 mg 2 elisa es a day. HOSPITAL COURSE: Mr. Denton is a pleasant 67-year-old gentleman, who was admitted to [facility] on 06/25/2017 for seizure and suspected aspiration. He was intubated for airway p rotection and mechanically ventilated. He was admitted to the CCU. He was extubated on 06/26/2017. He was seen by Neurology and Pulmonology Services. He was transferred to the medical floor on 06/27. He continued to improve and is being discharged home in a stable condition. He reportedly ra n out of his seizure medications. He has been restarted on Keppra 1000 mg 2 times a day, and I have transmitted a prescription for one-month supply to his pharmacy. On the day of discharge, he has white count of 8800, hemoglobin 13.3, platelet count 148,000. Sodium 137, potassium 3.5, carbon dioxide 18, and creatinine 0.90. His TSH during this hospitalization was normal. Many thanks for allowing me to participate in your patient's care. Please feel free to contact me wi th any questions or concerns. DISCHARGE DESTINATION: Home. TOTAL AMOUNT OF TIME SPENT COORDINATING THIS DISCHARGE: 33 minutes.
== END 2017-06-28 10:58 | disposition home or self-care (01) | DRG 100 ==
LOC: ERS 17:25 → CCU 19:57 → 2SE 06-27 13:19
PROVIDERS: ADMIT Internal Medicine Infectious Disease; ATTEND Internal Medicine Infectious Disease
PROC: 0BH17EZ Insertion of Endotracheal Airway into Trachea, Via Natural or Artificial Opening (ICD-10-PCS; principal; 2017-06-25)
PROC: 5A1935Z Respiratory Ventilation, Less than 24 Consecutive Hours (ICD-10-PCS; 2017-06-25)
DX: G40.409 Other generalized epilepsy and epileptic syndromes, not intractable, without status epilepticus (principal); B20 Human immunodeficiency virus [HIV] disease; J96.01 Acute respiratory failure with hypoxia; G93.41 Metabolic encephalopathy; Z91.14 Patient's other noncompliance with medication regimen; E11.9 Type 2 diabetes mellitus without complications; I10 Essential (primary) hypertension; F15.11 Other stimulant abuse, in remission; Z79.899 Other long term (current) drug therapy; F12.10 Cannabis abuse, uncomplicated; T17.900A Unspecified foreign body in respiratory tract, part unspecified causing asphyxiation, initial encounter; Z79.4 Long term (current) use of insulin; Z87.891 Personal history of nicotine dependence
CPT/HCPCS: 31500; 36415; 36416; 51702; 70450; 71045; 80048; 80053; 80177; 80306; 80307; 81003; 81015; 82550; 82553; 82805; 83735; 84443; 84484; 85025; 93005; 94002; 94003; 96361; 96365; 96372; 96375; A4216; J0295; J1953; J2060; J2250; J2704; J3010; J3490; J7050

== ENCOUNTER 2017-07-12 08:03 | Inpatient (IN) | payer MEDICARE, OTHER ==
[2017-07-12 09:35] LABS: #Lymphocytes 1.1 thou/uL (1.20-3.40); #Monocytes 0.2 thou/uL (0.11-0.59); #Neutrophils 6.1 thou/uL (1.40-6.50); %Basophils 0.3 % (0.0-1.0); %Eosinophils 0.4 % (0.0-10.0); %Lymphocytes 14.8 % (21.0-51.0); %Monocytes 2.6 % (0.0-10.0); %Neutrophils 81.9 % (42.0-75.0); Hemoglobin 12.6 g/dL (14.0-18.0); Mean Corpuscular HGB CONC 33.6 g/dL (32.0-36.0); Mean Corpuscular Hemoglobin 29.2 pg (27.0-31.0); Mean Corpuscular Volume 86.8 fl (80.0-94.0); Mean Platelet Volume 7.4 fL (7.4-10.4); Platelet Count 173 thou/uL (130-400); RBC Distribution Width 11.8 % (11.5-14.5); Red Blood Cell (RBC) Count 4.32 mill/uL (4.70-6.10); White Blood Cell (WBC) Count 7.5 thou/uL (4.8-10.8)
[2017-07-12] MEDS ORDERED: levETIRAcetam In NaCl (Iso-Os) 1,000 MG in Premix Bag 1 BAG IVPB SCH (09:45)
[2017-07-12 09:51] LABS: ALT (SGPT) 11 U/L (8-55); AST (SGOT) 12 U/L (5-34); Albumin 3.8 g/dL (3.4-4.8); Alkaline Phosphatase 79 U/L (40-150); Anion Gap 10 mmol/L (10-20); BUN (Urea Nitrogen) 8 mg/dL (8.4-25.7); Bilirubin, Total 0.3 mg/dL (0.2-1.2); CK (CPK) 114 U/L (30-200); Calc. Creatinine Clearance 0 mL/min (70-130); Calcium 8.7 mg/dL (7.8-10.44); Carbon Dioxide 22 mmol/L (23-31); Chloride 110 mmol/L (98-107); Estimated GFR-MDRD Greater than 90; Globulin 3.2 g/dL (2.4-3.5); Glucose 160 mg/dL (80-115); Potassium 3.3 mmol/L (3.5-5.1); Sodium 139 mmol/L (136-145)
[2017-07-12] MEDS ORDERED: Lorazepam 2 MG/ML VIAL ONE ×2 (09:56→19:20)
[2017-07-12 13:03] LABS: Amphetamine Not Detected (NotDetected); Barbiturates Screen Not Detected (NotDetected); Benzodiazepine Screen Not Detected (NotDetected); Cocaine Metabolite Screen Not Detected (NotDetected); Medtox Control Line Valid? VALID (VALID); Medtox Reader # READER 1; Methadone Not Detected (NotDetected); Methamphetamine Not Detected (NotDetected); Opiate Screen Not Detected (NotDetected); Oxycodone Screen Not Detected (NotDetected); Phencyclidine (PCP) Not Detected (NotDetected); THC/Cannabinoid Screen Detected (NotDetected); Tricyclic Screen Not Detected (NotDetected)
[2017-07-12] MEDS ORDERED: Piperacillin/Tazobactam 4.5 GM in Sodium Chloride 0.9% 100 ML IVPB SCH (13:15)
[2017-07-12] MEDS ORDERED: Acetaminophen 650 MG Suppository PR SCH (13:15)
[2017-07-12] MEDS ORDERED: hydrALAZINE 20 MG/ML VIAL SLOW IVP SCH (13:15)
[2017-07-12] MEDS ORDERED: Vancomycin HCl 1 GM in Premix Bag 1 BAG IVPB ONE (13:15)
[2017-07-12 13:16] LABS: Bilirubin Negative (Negative); Blood, Urine Negative (Negative); Clarity CLEAR (Clear); Glucose, Urine (Dipstick) Negative (Negative); Leukocyte Negative (Negative); Nitrite Negative (Negative); Protein, Urine (Dipstick) Negative (Neg-Trace); Specific Gravity, Urine 1.008 (1.002-1.036); Urobilinogen 0.2 mg/dL (0.2-1.0); pH, Urine 7.5 (5.0-9.0)
--- NOTE | 2017-07-12 13:46 | RAD ---
PORTABLE CHEST 1 VIEW: Date: 07/12/17 Time: 1335 hours HISTORY: Fever. Seizure. FINDINGS/IMPRESSION: Comparison made with exam of 06/27/17. The heart size is stable. There is interval improvement with incomplete resolution of the right basil ar density compared to the previous study. No pneumothoraces or large effusions are seen. POS: [facility]
[2017-07-12] MEDS ORDERED: Piperacillin/Tazobactam 4.5 GM VIAL ONE (14:04)
[2017-07-12] MEDS ORDERED: hydrALAZINE 20 MG/ML VIAL ONE (14:04)
[2017-07-12] MEDS ORDERED: Acetaminophen 650 MG Suppository ONE (14:04)
[2017-07-12] MEDS ORDERED: Acetaminophen 325 MG Suppository ONE (14:04)
--- NOTE | 2017-07-12 14:08 | CT ---
NONCONTRAST HEAD CT: HISTORY: Seizure. Fever. COMPARISON: 06/25/2017 TECHNIQUE: A noncontrast head CT is performed from the skull base to the skull vertex. FINDINGS: No parenchymal hemorrhage. No extraaxial hematoma. No midline shift. The basilar cisterns are fowler nt. Brain volume is age appropriate. Cortical lucas white matter differentiation is preserved. Ventricles and sulci are patent and symmetric. The calvarium is intact. Mild mucosal thickening of the sinuses. Adequate mastoid air cell aeration . IMPRESSION: No acute intracranial process. When compared to the previous examination, no significant interval change. POS: OFF
[2017-07-12] MEDS ORDERED: diphenhydrAMINE 50 MG/ML VIAL ONE (15:14)
[2017-07-12] MEDS ORDERED: Acetaminophen 650 MG Suppository PR PRN (16:38)
[2017-07-12] MEDS ORDERED: Acetaminophen 325 MG TAB PO PRN (16:38)
[2017-07-12] MEDS ORDERED: Dextrose 5% in Water 1,000 ML IV PRN (16:40)
[2017-07-12] MEDS ORDERED: Dextrose 50% Abboject 50 ML SYRINGE SLOW IVP PRN (16:40)
[2017-07-12] MEDS ORDERED: HumaLOG 300 UNITS/3 ML VIAL SC PRN ×2 (16:40)
[2017-07-12] MEDS ORDERED: Labetalol HCl 100 MG/20 ML VIAL SLOW IVP PRN (16:53)
[2017-07-12] MEDS ORDERED: Lorazepam 2 MG/ML VIAL SLOW IVP PRN (16:55)
[2017-07-12] MEDS ORDERED: Amlodipine 10 MG TAB PO SCH (17:00)
[2017-07-12 17:23] LABS: Lactic Acid 1.9 mmol/L (0.5-2.2)
--- NOTE | 2017-07-12 19:11 | HP ---
PRIMARY CARE PHYSICIAN: Zach Chamberlain M.D. PRESENTING COMPLAINT: Seizure. HISTORY OF PRESENT ILLNESS: Mr. Abdifatah Denton is a 67-year-old male with a past medical history of HIV, type 2 diabetes mellitus, seizure disorder, who presents to the emergency room after he had a seizure episode. According to EMS , he had a seizure lasting about 1-1/2 minutes this morning while he was sitting in the bathroom. There was no reported bowel or bladder incontinence. No history of fevers or chills. He did not have cough, shortness of breath, difficulty breathing before this episode. From chart review, he has a history of nonadherence to his home medication and has had past admissions for seizures after not taking his Keppra. According to his roommate, his seizures began this year and he was placed on Keppra. They said he had not taken his medications today. EMS denied giving him any medications. At the emergency room, he was found to be tachycardic and slightly hypotensive. He was oriented to person and place and verbal stimuli, was not in any apparent distress, but looks a postictal. EKG shows sinus tachycardia. Labs were largely unremarkable. Initial lactic acid was 2.5, potassium was 3.3. Urinalysis was unremarkable and urine toxicology only showed urine cannabinoids. He had a CT of his brain, which showed no new pathology and a chest x-ray showed no acute cardiopulmonary issues. He was given a loading dose of IV Keppra and then admitted for further management of his prolonged postictal state. Other medications given in the emergency room include Benadryl 25 mg IV, vancomycin 1 gram, rectal acetaminophen, Zosyn, hydralazine, a liter of normal saline and 2 mg of lorazepam. PAST MEDICAL HISTORY: eizure disorder; HIV; medication noncompliance; hypertension; history of polysubstance abuse with tobacco, THC and benzodiazepines; type 2 diabetes mellitus. PAST SURGICAL HISTORY: Reviewed and negative. FAMILY HISTORY: Reviewed and noncontributory. SOCIAL HISTORY: No known tobacco or alcohol use, but smokes marijuana regularly. ALLERGIES: No known drug allergies. HOME MEDICATIONS: Amoxicillin/potassium clavulanate 875 mg q.12 hours, darunavir/cobicistat 1 tablet daily, dolutegravir sodium 50 mg daily, etravirine 200 mg b.i.d., Keppra 1000 mg b.i.d. REVIEW OF SYSTEMS: Unable to conduct due to the patient's prolonged postictal state. PHYSICAL EXAMINATION: VITAL SIGNS: On presentation, his blood pressure was 153/67 while in the emergency room, increased to 231/103 and he was given IV hydralazine. Other vital signs within normal limits. GENERAL: Not in acute distress, lying comfortably in bed, responding to verbal stimuli and answering questions intermittently. HEENT: Normocephalic, atraumatic. Not pale, anicteric. Moist mucous membrane. PERRLA. EOMI CARDIOVASCULAR: S1 and S2 only. Regular rate and rhythm. No murmurs, rubs or gallops. RESPIRATORY: Vesicular breath sounds bilaterally. No wheezes, rales or rhonchi. ABDOMEN: Soft, nontender, nondistended. No organomegaly, no hepatosplenomegaly. NEUROLOGIC: He seems to be postictal, oriented to person and place, unclear if he has some left hemiparesis was seen to have difficulty in ambulating with his left hand. SKIN: Warm, dry, and well perfused. No rashes or lesions. MUSCULOSKELETAL: No edema. PSYCHIATRIC: Unable to assess. LABORATORY DATA AND IMAGING: CBC and CMP are largely unremarkable. EKG, no signs of acute ischemia, showed sinus tachycardia. Chest x-ray, no acute pathology. CT head without contrast, no acute intracranial abnormality. ASSESSMENT AND PLAN: 1. Seizure episode with prolonged postictal state: Likely from medication nonadherence. He has been given one dose of IV lorazepam in the emergency room. We will get a serum Keppra level, continue him on his Keppra as he has had a loading dose already. We will also obtain neurologic consult. Monitor in IMCU. IV lorazepam will be prescribed p.r.n. for any breakthrough seizures. We will also get Neurology input as he has ? left hemiparesis. Unclear if this is a new CVA, especially with his markedly elevated blood pressure or the part of his postictal states. 2. Hypertensive urgency: Markedly elevated blood pressure in the emergency room, which improved with IV hydralazine. He has no signs of end organ damage. We will gradually lower his blood pressure. Unclear what medication he takes at home, so we will start him on amlodipine and monitor blood pressure closely. 3. Type 2, diabetes mellitus: Blood glucose is only slightly elevated on arrival. We will place on sliding scale insulin, diabetic diet, hypoglycemia protocol and check fingerstick glucose before meals and at bedtime. Last hemoglobin A1c was 5.3 in 03/2015. We will obtain hemoglobin A1c. 4. History of human immunodeficiency virus: We will resume his home medications once he is able to take orally. 5. Seizure disorder: Continue Keppra. 6. Deep venous thrombosis prophylaxis, subcutaneous heparin. 7. Code status: FULL CODE. MTDD
[2017-07-12] MEDS: Sodium Chloride 0.9% 1,000 ML IV SCH (21:52)
[2017-07-12] MEDS: Potassium Chloride 20 MEQ TAB PO SCH (21:52)
[2017-07-12] MEDS: Heparin 5,000 UNITS/ML VIAL SC SCH (21:52)
[2017-07-12] MEDS: levETIRAcetam 500 MG TAB PO SCH (21:53)
[2017-07-13 00:15] VITALS: BMI 28.5
[2017-07-13 04:14] LABS: #Lymphocytes 2.1 thou/uL (1.20-3.40); #Monocytes 0.6 thou/uL (0.11-0.59); %Basophils 0.4 % (0.0-1.0); %Eosinophils 0.4 % (0.0-10.0); %Lymphocytes 21.7 % (21.0-51.0); %Monocytes 5.6 % (0.0-10.0); Hemoglobin 11.8 g/dL (14.0-18.0); Mean Corpuscular HGB CONC 33.8 g/dL (32.0-36.0); Mean Corpuscular Hemoglobin 28.9 pg (27.0-31.0); Mean Corpuscular Volume 85.6 fl (80.0-94.0); Mean Platelet Volume 7.2 fL (7.4-10.4); Platelet Count 159 thou/uL (130-400); RBC Distribution Width 11.8 % (11.5-14.5); Red Blood Cell (RBC) Count 4.07 mill/uL (4.70-6.10); White Blood Cell (WBC) Count 9.7 thou/uL (4.8-10.8)
[2017-07-13 04:28] LABS: Anion Gap 11 mmol/L (10-20); BUN (Urea Nitrogen) 7 mg/dL (8.4-25.7); Calc. Creatinine Clearance 90 mL/min (70-130); Calcium 8.6 mg/dL (7.8-10.44); Carbon Dioxide 22 mmol/L (23-31); Chloride 108 mmol/L (98-107); Estimated GFR-MDRD Greater than 90; Glucose 114 mg/dL (80-115); Potassium 3.2 mmol/L (3.5-5.1); Sodium 138 mmol/L (136-145)
[2017-07-13] MEDS ORDERED: ETRAVIRINE 200 MG PO SCH (08:00)
[2017-07-13] MEDS: Heparin 5,000 UNITS/ML VIAL SC SCH ×3 (08:20→20:35)
[2017-07-13] MEDS: Potassium Chloride 20 MEQ TAB PO SCH (08:20)
[2017-07-13] MEDS: levETIRAcetam 500 MG TAB PO SCH ×2 (08:20→20:34)
[2017-07-13] MEDS: Amlodipine 10 MG TAB PO SCH (08:20)
[2017-07-13] MEDS ORDERED: COBICISTAT PO SCH (09:00)
[2017-07-13] MEDS ORDERED: Non-Formulary Item 1 EACH (Dolutegravir Sodium [Tivicay] 50 MG) PO SCH (09:00)
[2017-07-13] MEDS ORDERED: (Dolutegravir Sodium [Tivicay] 50 MG) PO SCH (09:00)
[2017-07-13] MEDS ORDERED: [UNRECOGNIZED DRUG - OTHER] PO SCH (09:00)
[2017-07-13] MEDS ORDERED: Prevnar 13-Val Conj/PF 0.5 ML SYRINGE IM ONE (09:00)
[2017-07-13] MEDS ORDERED: DARUNAVIR PO SCH (09:00)
[2017-07-13] MEDS: Sodium Chloride 0.9% 1,000 ML IV SCH (10:54)
--- NOTE | 2017-07-13 13:25 | PDOC.PN ---
- Subjective Encounter Start Date: 07/13/17 Encounter Start Time: 13:27 Subjective: No acute events overnight. -: No complaints. Spoke to patient's son- who states pt is back to baseline. - Objective Resuscitation Status: Resuscitation Status FULL:Full Resuscitation MAR Reviewed: Yes Vital Signs & Weight: Vital Signs (12 hours) Temp Pulse Resp BP Pulse Ox 07/13/17 13:16 93 159/80 H 07/13/17 12:00 99.6 F 96 16 175/88 H 95 07/13/17 10:23 97.7 F 108 H 16 183/92 H 95 07/13/17 08:00 98.8 F 81 16 96 07/13/17 07:44 98.8 F 81 16 171/84 H 96 07/13/17 04:33 98.5 F 85 20 150/70 H 100 Weight Weight 171 lb 12.8 oz I&O: 07/12/17 07/13/17 07/14/17 06:59 06:59 06:59 Intake Total 240 Balance 240 Result Diagrams: 07/13/17 03:49 07/13/17 03:49 Additional Labs: Accuchecks 07/13/17 07/13/17 07/12/17 11:34 05:33 22:22 POC Glucose 194 H 134 H 117 H Phys Exam - Physical Examination Constitutional: NAD HEENT: PERRLA, moist MMs, sclera anicteric, oral pharynx no lesions Neck: no JVD, supple, full ROM Respiratory: no wheezing, no rales, no rhonchi, clear to auscultation bilateral Cardiovascular: RRR, no significant murmur, no rub Gastrointestinal: soft, non-tender, no distention, positive bowel sounds Musculoskeletal: no edema, pulses present Neurological: non-focal, moves all 4 limbs Psychiatric: normal affect Deviation from normal: AO x 2. Skin: no rash, normal turgor Dx/Plan (1) Hypertensive urgency Code(s): I16.0 - HYPERTENSIVE URGENCY Status: Acute Comment: Improving with PO medications. Monitor. (2) Seizure disorder Code(s): G40.909 - EPILEPSY, UNSP, NOT INTRACTABLE, WITHOUT STATUS EPILEPTICUS Status: Chronic Comment: Awake and back to his baseline. Keppra level low normal. Awaiting neuro review. 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 Diet controlled. Continue accuchecks, insulin sliding scale. (5) HIV (human immunodeficiency virus infection) Status: Chronic Comment: Continue home regimen. - Plan cont current plan of care, plan discussed w/ family, out of bed/ambulate, DVT proph w/heparin * . Review of Systems - Medications/Allergies Allergies/Adverse Reactions: Allergies Allergy/AdvReac Type Severity Reaction Status Date / Time No Known Allergies Allergy Verified 05/12/17 02:54 Medications: Current Medications Acetaminophen (Tylenol) 650 mg PO Q4H PRN PRN Reason: Headache/Fever or Pain Last Admin: 07/13/17 11:50 Dose: 650 mg Acetaminophen (Tylenol) 650 mg [place] Q4H PRN PRN Reason: Headache/Fever or Pain Amlodipine Besylate (Norvasc) 10 mg PO DAILY [facility] Last Admin: 07/13/17 08:20 Dose: 10 mg Dextrose/Water (Dextrose 50%) 25 gm SLOW IVP PRN PRN PRN Reason: Hypoglycemia Etravirine (Intelence) 200 mg PO BID-[facility] Glucagon (Glucagon) 1 mg IM PRN PRN PRN Reason: Hypoglycemia Heparin Sodium (Porcine) (Heparin) 5,000 units SC TID [facility] Last Admin: 07/13/17 08:20 Dose: 5,000 units Dextrose/Water (D5w) 1,000 mls @ 0 mls/hr IV .Q0M PRN; As Directed PRN Reason: Hypoglycemia Sodium Chloride (Normal Saline 0.9%) 1,000 mls @ 50 mls/hr IV .Q20H [facility] Last Admin: 07/13/17 10:54 Dose: Not Given Insulin Human Lispro (Humalog) 0 units SC .MILD SLIDING SCALE PRN PRN Reason: Mild Correctional Scale Insulin Human Lispro (Humalog) 0 units SC .BEDTIME SLIDING SC PRN PRN Reason: Bedtime Correctional Scale Labetalol HCl (Normodyne) 10 mg SLOW IVP Q4H PRN PRN Reason: SBP Greater Than 180 Levetiracetam (Keppra) 1,000 mg PO BID [facility] Last Admin: 07/13/17 08:20 Dose: 1,000 mg Lorazepam (Ativan) 2 mg SLOW IVP Q4H PRN PRN Reason: Seizures Last Admin: 07/13/17 00:48 Dose: 2 mg (Dolutegravir Sodium ([Tivicay] 50 Mg)) 0 each PO DAILY [facility] [Prezcobix 800 Mg- 150 Mg Tablet] 1 Each 0 each PO DAILY [facility] Sodium Chloride (Flush - Normal Saline) 10 ml IVF PRN PRN PRN Reason: Saline Flush
[2017-07-13] MEDS ORDERED: Hydrochlorothiazide 25 MG TAB PO SCH ×2 (13:30→15:15)
--- NOTE | 2017-07-14 01:27 | CON ---
DATE OF CONSULTATION: 07/13/2017 REFERRING PROVIDER: Jorge Luis Mckeon M.D. REASON FOR CONSULTATION: Recurrent seizures. HISTORY OF PRESENT ILLNESS: Mr. Denton is a pleasant 67-year-old -Italian male well known to me from his previous admissions as well as from the clinic, presented with the recurrent episode of seizure. History is obtained from patient's medical chart as the patient is a very poor historian. Apparently, the patient had a seizure lasting approximately 1 to 1-1/2 minutes while he was sitting i n bathroom. EMS was called in by his roommate. There was no reported loss of bowel or bladder contr ol. He is currently on Keppra 1000 mg b.i.d. and had actually seen this patient about 1 week ago wit h his son and had informed that he needs to be compliant with his medication, it is unknown whether h e had stopped the medication or not, but according to the dictated H and P note, he did not take his medication on today before the admission. PAST MEDICAL HISTORY: Reviewed and there as dictated H and P note done by Dr. Jorge Luis Mckeon. PAST SURGICAL HISTORY: Reviewed and there as dictated H and P note done by Dr. Jorge Luis Mckeon. FAMILY HISTORY: Reviewed and there as dictated H and P note done by Dr. Jorge Luis Mckeon. SOCIAL HISTORY: Reviewed and there as dictated H and P note done by Dr. Jorge Luis Mckeon. CURRENT MEDICATIONS: Reviewed and there as dictated H and P note done by Dr. Jorge Luis Mckeon. ALLERGIES: Reviewed and there as dictated H and P note done by Dr. Jorge Luis Mckeon. REVIEW OF SYSTEMS: As mentioned in the HPI, is negative. PHYSICAL EXAMINATION: VITAL SIGNS: Blood pressure 153/74, pulse is 91, temperature of 97.9, respirations of 20, and O2 sat s of 95% on room air. GENERAL: Well-developed, well-nourished -Italian male in no apparent distress. RESPIRATORY: Clear to auscultation bilaterally. CARDIOVASCULAR: Regular rate and rhythm. NEUROLOGIC: Mental status: The patient is awake, alert, oriented x3. Speech and language: Fluent speech. Cranial nerves: Pupils are 3 mm and reactive. Visual khan are intact. External muscles are intact. No nystagmus is noted. Face is symmetric. Tongue and uvula are midline. Motor exam sh owed normal tone and bulk with 5/5 strength in the both upper and lower extremities. Sensory: Sensa tion is intact and symmetric. Deep tendon reflexes, 2+ reflexes in both upper and lower extremities. Babinski: Plantar responses flexion bilaterally. Coordination intact to [id number] and fi nger tapping bilaterally. LABORATORY DATA: Reviewed, which included CBC, BMP, urinalysis and urine drug screen, Keppra level, which is significant for hemoglobin 11.8, hematocrit 34.8, potassium of 3.2. Urine drug screen posit hiren for cannabinoids. Keppra level was 12.2, otherwise unremarkable. IMPRESSION: Recurrent illness tonic-clonic seizure. Mr. Denton is a pleasant 67-year-old -Italian male with history of seizure disorder who prese nted with recurrent seizure episode. At this time, I will recommend increasing his Keppra to 1500 mg twice daily. He has a followup appointment in my clinic. I would recommend for him to follow up at that time. Thank you for the consultation.
[2017-07-14 04:35] LABS: #Eosinphils 0.1 thou/uL (0.0-0.7); #Lymphocytes 2.5 thou/uL (1.20-3.40); #Monocytes 0.6 thou/uL (0.11-0.59); #Neutrophils 6.7 thou/uL (1.40-6.50); %Basophils 0.3 % (0.0-1.0); %Eosinophils 0.6 % (0.0-10.0); %Lymphocytes 25.6 % (21.0-51.0); %Neutrophils 67.6 % (42.0-75.0); Mean Corpuscular HGB CONC 34.7 g/dL (32.0-36.0); Mean Corpuscular Hemoglobin 29.2 pg (27.0-31.0); Mean Corpuscular Volume 84.2 fl (80.0-94.0); Platelet Count 164 thou/uL (130-400); RBC Distribution Width 11.7 % (11.5-14.5); Red Blood Cell (RBC) Count 4.78 mill/uL (4.70-6.10); White Blood Cell (WBC) Count 9.9 thou/uL (4.8-10.8)
[2017-07-14 04:43] LABS: Anion Gap 15 mmol/L (10-20); BUN (Urea Nitrogen) 8 mg/dL (8.4-25.7); Calc. Creatinine Clearance 89 mL/min (70-130); Calcium 9.3 mg/dL (7.8-10.44); Carbon Dioxide 22 mmol/L (23-31); Chloride 98 mmol/L (98-107); Estimated GFR-MDRD Greater than 90; Glucose 115 mg/dL (80-115); Potassium 3.1 mmol/L (3.5-5.1); Sodium 132 mmol/L (136-145)
[2017-07-14] MEDS: Amlodipine 10 MG TAB PO SCH (08:15)
[2017-07-14] MEDS: Heparin 5,000 UNITS/ML VIAL SC SCH ×3 (08:20→21:35)
[2017-07-14] MEDS: levETIRAcetam 500 MG TAB PO SCH ×2 (08:22→21:33)
[2017-07-14] MEDS ORDERED: Hydrochlorothiazide 25 MG TAB PO SCH (09:00)
[2017-07-14] MEDS: Sodium Chloride 0.9% 1,000 ML IV SCH (10:44)
[2017-07-14] MEDS ORDERED: Potassium Chloride 20 MEQ TAB PO SCH (13:00)
[2017-07-14] MEDS ORDERED: Potassium Chloride 40 MEQ in Sodium Chloride 0.9% 250 ML 150 ML IVPB SCH (13:30)
--- NOTE | 2017-07-14 14:52 | PDOC.PN ---
- Subjective Encounter Start Date: 07/14/17 Encounter Start Time: 14:50 Subjective: Seen and examined for recurrent seizures. -: Reports no conplaints. Family available today and have been concerned with his worsening mental status , which started in 2014. He is usually Ao x 2 but lately has been getting worse and has been unable to take care of himself. - Objective Resuscitation Status: Resuscitation Status FULL:Full Resuscitation MAR Reviewed: Yes Vital Signs & Weight: Vital Signs (12 hours) Temp Pulse Resp BP BP Pulse Ox 07/14/17 08:15 89 167/21 H 07/14/17 08:00 98.4 F 89 16 167/81 H 95 Weight Weight 171 lb 12.8 oz I&O: 07/13/17 07/14/17 07/15/17 06:59 06:59 06:59 Intake Total 720 Balance 720 Result Diagrams: 07/14/17 03:43 07/14/17 03:43 Additional Labs: Accuchecks 07/14/17 07/14/17 07/13/17 11:16 04:54 20:02 POC Glucose 148 H 125 H 115 H 07/13/17 16:38 POC Glucose 127 H Phys Exam - Physical Examination Constitutional: NAD HEENT: PERRLA, moist MMs, sclera anicteric, oral pharynx no lesions Neck: no JVD, supple, full ROM Respiratory: no wheezing, no rales, no rhonchi, clear to auscultation bilateral Cardiovascular: RRR, no significant murmur, no rub Gastrointestinal: soft, non-tender, no distention, positive bowel sounds Musculoskeletal: no edema, pulses present Neurological: non-focal, moves all 4 limbs Psychiatric: normal affect Deviation from normal: AO x 3. Skin: no rash, normal turgor Dx/Plan (1) Hypertensive urgency Code(s): I16.0 - HYPERTENSIVE URGENCY Status: Acute Comment: Improving with PO medications. Monitor. (2) Seizure disorder Code(s): G40.909 - EPILEPSY, UNSP, NOT INTRACTABLE, WITHOUT STATUS EPILEPTICUS Status: Chronic Comment: Keppra level low normal. Keppra dose increased to 1500mg. (3) HTN (hypertension) Code(s): I10 - ESSENTIAL (PRIMARY) HYPERTENSION Status: Acute Qualifiers: Hypertension type: essential hypertension Qualified Code(s): I10 - Essential (primary) hypertension Comment: Fair control. Continue HCTZ and amlodipine. 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 Diet controlled. Continue accuchecks, insulin sliding scale. (5) HIV (human immunodeficiency virus infection) Status: Chronic Comment: Continue home regimen. (6) Hypokalemia Code(s): E87.6 - HYPOKALEMIA Status: Acute Comment: Replete (7) Encephalopathy acute Code(s): G93.40 - ENCEPHALOPATHY, UNSPECIFIED Status: Acute Comment: Resolving but still has episodes of confusion. ? underlying dementia as well. Continue supportive measures (8) Post-ictal confusion Code(s): F05 - DELIRIUM DUE TO KNOWN PHYSIOLOGICAL CONDITION Status: Resolved - Plan cont current plan of care, plan discussed w/ family, out of bed/ambulate, DVT proph w/heparin Patient likely has progressing dementia. CT head on this admission unremarkable. Will obtain TSH, B12 levels to rule out other medical causes. local sales manager will be consulted for SNF placement. Patient has been unable to take care of himself at home. If mental status deteriorates, will consider repeating CT brain Review of Systems - Medications/Allergies Allergies/Adverse Reactions: Allergies Allergy/AdvReac Type Severity Reaction Status Date / Time No Known Allergies Allergy Verified 05/12/17 02:54 Medications: Current Medications Acetaminophen (Tylenol) 650 mg PO Q4H PRN PRN Reason: Headache/Fever or Pain Last Admin: 07/13/17 11:50 Dose: 650 mg Acetaminophen (Tylenol) 650 mg [place] Q4H PRN PRN Reason: Headache/Fever or Pain Amlodipine Besylate (Norvasc) 10 mg PO DAILY [facility] Last Admin: 07/14/17 08:15 Dose: 10 mg Dextrose/Water (Dextrose 50%) 25 gm SLOW IVP PRN PRN PRN Reason: Hypoglycemia Etravirine (Intelence) 200 mg PO BID-[facility] Last Admin: 07/14/17 08:18 Dose: 200 mg Glucagon (Glucagon) 1 mg IM PRN PRN PRN Reason: Hypoglycemia Heparin Sodium (Porcine) (Heparin) 5,000 units SC TID [facility] Last Admin: 07/14/17 08:20 Dose: 5,000 units Hydrochlorothiazide (Hydrochlorothiazide) 12.5 mg PO DAILY [facility] Last Admin: 07/14/17 08:18 Dose: 12.5 mg Dextrose/Water (D5w) 1,000 mls @ 0 mls/hr IV .Q0M PRN; As Directed PRN Reason: Hypoglycemia Potassium Chloride 40 meq/ (Sodium Chloride) 250 mls @ 62.5 mls/hr IVPB NOW [facility] Stop: 07/14/17 17:29 Last Admin: 07/14/17 14:19 Dose: 250 mls Insulin Human Lispro (Humalog) 0 units SC .MILD SLIDING SCALE PRN PRN Reason: Mild Correctional Scale Last Admin: 07/13/17 13:55 Dose: 2 unit Insulin Human Lispro (Humalog) 0 units SC .BEDTIME SLIDING [place] PRN PRN Reason: Bedtime Correctional Scale Labetalol HCl (Normodyne) 10 mg SLOW IVP Q4H PRN PRN Reason: SBP Greater Than 180 Levetiracetam (Keppra) 1,500 mg PO BID [facility] Last Admin: 07/14/17 08:22 Dose: 1,500 mg Lorazepam (Ativan) 2 mg SLOW IVP Q4H PRN PRN Reason: Seizures Last Admin: 07/13/17 00:48 Dose: 2 mg (Dolutegravir Sodium ([Tivicay] 50 Mg)) 0 each PO DAILY [facility] [Prezcobix 800 Mg- 150 Mg Tablet] 1 Each 0 each PO DAILY [facility] Potassium Chloride (K-Dur) 40 meq PO NOW [facility] Stop: 07/14/17 15:00 Last Admin: 07/14/17 13:36 Dose: 40 meq Sodium Chloride (Flush - Normal Saline) 10 ml IVF PRN PRN PRN Reason: Saline Flush
[2017-07-15 05:31] LABS: #Basophils 0.1 thou/uL (0.0-0.2); #Eosinphils 0.1 thou/uL (0.0-0.7); #Lymphocytes 2.7 thou/uL (1.20-3.40); #Monocytes 0.7 thou/uL (0.11-0.59); %Basophils 0.8 % (0.0-1.0); %Eosinophils 0.7 % (0.0-10.0); %Lymphocytes 28.4 % (21.0-51.0); %Monocytes 7.5 % (0.0-10.0); %Neutrophils 62.6 % (42.0-75.0); Hemoglobin 13.7 g/dL (14.0-18.0); Mean Corpuscular HGB CONC 34.5 g/dL (32.0-36.0); Mean Corpuscular Hemoglobin 28.7 pg (27.0-31.0); Mean Corpuscular Volume 83.3 fl (80.0-94.0); Mean Platelet Volume 7.4 fL (7.4-10.4); Platelet Count 174 thou/uL (130-400); RBC Distribution Width 11.7 % (11.5-14.5); Red Blood Cell (RBC) Count 4.78 mill/uL (4.70-6.10); White Blood Cell (WBC) Count 9.6 thou/uL (4.8-10.8)
[2017-07-15 05:44] LABS: Anion Gap 12 mmol/L (10-20); BUN (Urea Nitrogen) 12 mg/dL (8.4-25.7); Calc. Creatinine Clearance 78 mL/min (70-130); Calcium 9.1 mg/dL (7.8-10.44); Carbon Dioxide 24 mmol/L (23-31); Chloride 97 mmol/L (98-107); Estimated GFR-MDRD Greater than 90; Glucose 127 mg/dL (80-115); Potassium 3.3 mmol/L (3.5-5.1); Sodium 130 mmol/L (136-145)
[2017-07-15 06:20] LABS: Folate (Folic Acid) 7.7 ng/mL (7.0-31.4)
[2017-07-15] MEDS: levETIRAcetam 500 MG TAB PO SCH (08:24)
[2017-07-15] MEDS: Amlodipine 10 MG TAB PO SCH (08:25)
[2017-07-15] MEDS: Heparin 5,000 UNITS/ML VIAL SC SCH ×2 (08:26→14:48)
[2017-07-15] MEDS ORDERED: Hydrochlorothiazide 25 MG TAB PO SCH (09:00)
[2017-07-15] MEDS ORDERED: chlorproMAZINE HCl 25 MG TAB PO PRN (16:29)
--- NOTE | 2017-07-15 16:30 | PDOC.PN ---
- Subjective Encounter Start Date: 07/15/17 Encounter Start Time: 16:28 Mr. Denton was seen today in follow-up. He is alert and oriented to person place and time, as well as situation. His only complaint is that of hiccups. - Objective Resuscitation Status: Resuscitation Status FULL:Full Resuscitation MAR Reviewed: Yes Vital Signs & Weight: Vital Signs (12 hours) Temp Pulse Resp BP BP Pulse Ox 07/15/17 11:29 99.1 F 87 18 118/62 93 L 07/15/17 08:25 90 149/77 H 07/15/17 08:00 97.0 F L 90 16 92 L 07/15/17 07:26 97.0 F L 90 149/77 H 92 L Weight Weight 171 lb 12.8 oz I&O: 07/14/17 07/15/17 07/16/17 06:59 06:59 06:59 Intake Total 720 Balance 720 Result Diagrams: 07/15/17 05:10 07/15/17 05:10 Additional Labs: Accuchecks 07/15/17 07/15/17 07/14/17 11:04 05:57 21:11 POC Glucose 135 H 147 H 149 H 07/14/17 16:53 POC Glucose 130 H Phys Exam - Physical Examination HEENT: PERRLA Respiratory: no wheezing, no rales, no rhonchi, clear to auscultation bilateral Cardiovascular: RRR, no significant murmur, no rub Gastrointestinal: soft, non-tender, no distention, positive bowel sounds Musculoskeletal: no edema Dx/Plan (1) HTN (hypertension) Code(s): I10 - ESSENTIAL (PRIMARY) HYPERTENSION Status: Acute Qualifiers: Hypertension type: essential hypertension Qualified Code(s): I10 - Essential (primary) hypertension Comment: Fair control. Continue HCTZ and amlodipine. (2) Hypertensive urgency Code(s): I16.0 - HYPERTENSIVE URGENCY Status: Acute Comment: Improving with PO medications. Monitor. (3) Seizure disorder Code(s): G40.909 - EPILEPSY, UNSP, NOT INTRACTABLE, WITHOUT STATUS EPILEPTICUS Status: Chronic Comment: Keppra level low normal. Keppra dose increased to 1500mg. (4) Post-ictal confusion Code(s): F05 - DELIRIUM DUE TO KNOWN PHYSIOLOGICAL CONDITION Status: Resolved (5) HIV (human immunodeficiency virus infection) Status: Chronic Comment: Continue home regimen. - Plan * Seizure disorder- Neurology input appreciated- will increase his dose of Keppra * Post-ictal confusion- is beginning to improved * HIV- continue his home medications * Hyponatremia, and hypokalemia- likely from HCTZ- whiich will be discontinued * HTN- better will manage with Amlodipine initially avoid thiazide diuretics * Will discharge home today.
[2017-07-15 16:42] VITALS: BP 123/68; TEMP 96.1
[2017-07-15] MEDS ORDERED: Potassium Chloride 20 MEQ TAB PO SCH (17:15)
--- NOTE | 2017-07-16 03:31 | DIS ---
DATE OF ADMISSION: 07/12/2017 DATE OF DISCHARGE: 07/15/2017 PRIMARY CARE PHYSICIAN: Zach Chamberlain M.D. DISCHARGE DISPOSITION: Home. PRIMARY DISCHARGE DIAGNOSES: 1. Seizure disorder with breakthrough seizure. 2. Postictal confusion. 3. Human immunodeficiency virus. 4. Hypertension. 5. History of polysubstance abuse. 6. Diabetes mellitus type 2. 7. Possible early dementia. DISCHARGE MEDICATIONS: Please note the patient has been taken off hydrochlorothiazide due to low pot assium and hyponatremia. The dose of Keppra was increased to 1500 mg twice daily. He is to continue K-Dur 20 mEq daily for 7 days, Ambien 5 mg at bedtime as needed, Intelence 200 mg twice a day, Tivic ay 50 mg daily, Prezcobix 800/150 daily and amlodipine 10 mg daily. PROCEDURES DONE DURING ADMISSION: The patient had a CT scan of the brain showing no acute intracrani al process. There was no change from the previous. CODE STATUS: FULL CODE. ALLERGIES: No known drug allergies. HOSPITAL COURSE: Mr. Denton is a pleasant 67-year-old gentleman that has a history of HIV positive a nd also history of seizure disorder. He was brought to the hospital after having a seizure, which la sted 1-1/2 minutes. There was no reported bowel or bladder incontinence. He was brought into the spital and was loaded with IV Keppra. He was noted to have a prolonged postictal state, and in fact, he was frankly confused the following day. There was some concern and he was seen by Neurology. Th ere was some concern about compliance and the patient was a poor historian, and therefore, Dr. Madonna polanco keena the decision to increase the dose of Keppra to 1500 mg twice daily since it was unable to verify what he was doing at home. The patient lives alone and has a friend to stay with him occasionally an d I spoke with the family and they are not always aware of what he is dealing with regard to his medi cations. There was some concern that the patient may be developing either an HIV dementia or possibl y just age related dementia as the patient is 67 years old. I discussed this with the patient's randolph hter primarily with regard to his care post-discharge. We offered the patient to be placed in a skil led nursing facility, which would give the family time to make a decision as to long-term arrangement s for the patient given that there was some concern that he may be losing the ability to care for him self at home. This was discussed in detail with the family. They felt that this would be something of a last resort and preferred to take the patient home and home health was arranged for the patient. I did explain to them that with home health this would not be a long-term solution and that he woul d only be seen for a short amount of time during the day and typically home health will only last for about 6-8 weeks. They voiced understanding and still decided against nursing home. Therefore, s siria the patient was clinically stable, there were no signs of any active infection, which may have p recipitated the seizure. Urinalysis was negative. Blood work was essentially negative. Toxicology screen was also negative and CT scan of the brain was negative and he is now back to his baseline lev el of functioning, alert and oriented to person, place, time, and situation. He will be discharged h ome and to have close followup in the outpatient setting with Dr. Chamberlain.
== END 2017-07-15 19:00 | disposition home health service (06) | DRG 100 ==
LOC: ERS 08:03 → IMCU/EMU 16:31 → T4-A 07-13 10:16
PROVIDERS: ADMIT Internal Medicine; ATTEND Internal Medicine
DX: G40.409 Other generalized epilepsy and epileptic syndromes, not intractable, without status epilepticus (principal); B20 Human immunodeficiency virus [HIV] disease; G93.40 Encephalopathy, unspecified; F05 Delirium due to known physiological condition; E87.1 Hypo-osmolality and hyponatremia; I10 Essential (primary) hypertension; I16.0 Hypertensive urgency; E87.6 Hypokalemia; E11.9 Type 2 diabetes mellitus without complications; F03.90 Unspecified dementia, unspecified severity, without behavioral disturbance, psychotic disturbance, mood disturbance, and anxiety; Z91.14 Patient's other noncompliance with medication regimen; Z87.891 Personal history of nicotine dependence; F12.10 Cannabis abuse, uncomplicated; F19.10 Other psychoactive substance abuse, uncomplicated
CPT/HCPCS: 36415; 36416; 70450; 71045; 80048; 80053; 80177; 80306; 81003; 82550; 82607; 82746; 83036; 83605; 83735; 84443; 85025; 87040; 93005; J0360; J1200; J1644; J1953; J2060; J2543; J3370; J3480; J7050

== ENCOUNTER 2017-07-19 01:44 | Emergency (ER) | payer MEDICARE, OTHER ==
[2017-07-19] MEDS ORDERED: Lorazepam 2 MG/ML VIAL ONE (01:59)
== END 2017-07-19 10:45 | disposition home or self-care (01) ==
LOC: ERS 01:44
DX: G40.909 Epilepsy, unspecified, not intractable, without status epilepticus (principal); E11.9 Type 2 diabetes mellitus without complications; B20 Human immunodeficiency virus [HIV] disease; I10 Essential (primary) hypertension; F17.200 Nicotine dependence, unspecified, uncomplicated
CPT/HCPCS: 96374; 99406; J2060

== ENCOUNTER 2017-09-07 11:40 | Emergency (ER) | payer MEDICARE, OTHER ==
[2017-09-07 12:36] LABS: #Basophils 0.1 thou/uL (0.0-0.2); #Lymphocytes 1.6 thou/uL (1.20-3.40); #Monocytes 0.3 thou/uL (0.11-0.59); #Neutrophils 7.2 thou/uL (1.40-6.50); %Basophils 0.7 % (0.0-1.0); %Eosinophils 0.4 % (0.0-10.0); %Lymphocytes 17.4 % (21.0-51.0); %Monocytes 3.5 % (0.0-10.0); Hemoglobin 13.3 g/dL (14.0-18.0); Mean Corpuscular HGB CONC 32.3 g/dL (32.0-36.0); Mean Corpuscular Hemoglobin 28.8 pg (27.0-31.0); Mean Corpuscular Volume 89.1 fL (78.0-98.0); Mean Platelet Volume 7.1 fL (7.4-10.4); Platelet Count 156 thou/uL (130-400); Red Blood Cell (RBC) Count 4.63 mill/uL (4.70-6.10); White Blood Cell (WBC) Count 9.3 thou/uL (4.8-10.8)
[2017-09-07 12:48] LABS: ALT (SGPT) 115 U/L (8-55); AST (SGOT) 40 U/L (5-34); Albumin 4.1 g/dL (3.4-4.8); Alkaline Phosphatase 169 U/L (40-150); Anion Gap 12 mmol/L (10-20); BUN (Urea Nitrogen) 9 mg/dL (8.4-25.7); Bilirubin, Total 0.2 mg/dL (0.2-1.2); Calc. Creatinine Clearance 0 mL/min (70-130); Calcium 8.8 mg/dL (7.8-10.44); Carbon Dioxide 22 mmol/L (23-31); Chloride 105 mmol/L (98-107); Estimated GFR-MDRD Greater than 90; Globulin 4.1 g/dL (2.4-3.5); Glucose 188 mg/dL (80-115); Potassium 4.1 mmol/L (3.5-5.1); Protein, Total 8.2 g/dL (5.8-8.1); Sodium 135 mmol/L (136-145)
--- NOTE | 2017-09-07 13:20 | CT ---
CT HEAD WITHOUT CONTRAST: Technique: Multiple axial tomograms were obtained through the head without IV enhancement. Indications: Mental status change. Seizure. Comparison: 07-12-17 FINDINGS: Ventricles have normal size and position. Mild cortical volume loss again noted. No evidence of intra cranial mass or hemorrhage. No evidence of acute infarct. IMPRESSION: No acute findings. POS: [facility]
--- NOTE | 2017-09-07 13:24 | RAD ---
PORTABLE AP CHEST RADIOGRAPH: Date: 09-07-17 History: Altered mental status. Patient found in recliner with drool from mouth. Comparison: 07-12-17 FINDINGS: Cardiac silhouette and bronchovascular markings are accentuated by shallow depth of inspiration and p ortable technique. There is mild increased density seen at the medial right lung base which may be re lated to focal eventration of the right hemidiaphragm and/or atelectasis. However, persistent infiltr ate at the right lung base is a possibility. Left lung is clear. Cardiac silhouette and pulmonary vas culature are within normal limits for portable technique and depth of inspiration. No other interval change. IMPRESSION: Right basilar density similar to prior study on 07-12-17. While some of this density is probably relate d to focal eventration of a portion of the right hemidiaphragm, there is increased density which is p robably related to atelectasis given the shallow depth of inspiration. Infiltrate right lung base can not be entirely excluded. POS: [facility]
--- NOTE | 2017-09-10 15:19 | EKG ---
Test Reason : SEIZURES Blood Pressure : / mmHG Vent. Rate : 125 BPM Atrial Rate : 125 BPM P-R Int : 194 ms QRS Dur : 090 ms QT Int : 286 ms P-R-T Axes : 084 099 -04 degrees QTc Int : 412 ms Sinus tachycardia Rightward axis Cannot rule out Inferior infarct , age undetermined Abnormal ECG Confirmed by TYLER JOHANSEN, SHARRI ([id number]), editor magazine JED CHAPA ([id number]) on 09/10/2017 3:19:32 PM Referred By: Confirmed By:SHARRI SCOTT MD
== END 2017-09-07 16:54 | disposition home or self-care (01) ==
LOC: ERS 11:40
DX: R56.9 Unspecified convulsions (principal); J69.0 Pneumonitis due to inhalation of food and vomit; E11.9 Type 2 diabetes mellitus without complications; B20 Human immunodeficiency virus [HIV] disease; I10 Essential (primary) hypertension; F17.210 Nicotine dependence, cigarettes, uncomplicated
CPT/HCPCS: 36415; 70450; 71045; 80053; 82550; 83605; 85025; 93005; 94760; 96360

== ENCOUNTER 2017-09-08 09:53 | Emergency (ER) | payer MEDICARE, OTHER ==
[2017-09-08 11:07] LABS: #Lymphocytes 1.6 thou/uL (1.20-3.40); #Monocytes 0.4 thou/uL (0.11-0.59); #Neutrophils 6.2 thou/uL (1.40-6.50); %Basophils 0.3 % (0.0-1.0); %Eosinophils 0.1 % (0.0-10.0); %Lymphocytes 19.1 % (21.0-51.0); %Monocytes 4.6 % (0.0-10.0); %Neutrophils 75.9 % (42.0-75.0); Hemoglobin 12.5 g/dL (14.0-18.0); Mean Corpuscular HGB CONC 34.8 g/dL (32.0-36.0); Mean Corpuscular Volume 86.2 fL (78.0-98.0); Mean Platelet Volume 6.9 fL (7.4-10.4); Platelet Count 150 thou/uL (130-400); Red Blood Cell (RBC) Count 4.18 mill/uL (4.70-6.10); White Blood Cell (WBC) Count 8.2 thou/uL (4.8-10.8)
[2017-09-08 12:28] LABS: ALT (SGPT) 89 U/L (8-55); AST (SGOT) 31 U/L (5-34); Albumin 4.1 g/dL (3.4-4.8); Alkaline Phosphatase 146 U/L (40-150); Anion Gap 16 mmol/L (10-20); BUN (Urea Nitrogen) 13 mg/dL (8.4-25.7); Bilirubin, Total 0.6 mg/dL (0.2-1.2); Calc. Creatinine Clearance 0 mL/min (70-130); Calcium 9.3 mg/dL (7.8-10.44); Carbon Dioxide 19 mmol/L (23-31); Chloride 106 mmol/L (98-107); Estimated GFR-MDRD Greater than 90; Globulin 3.6 g/dL (2.4-3.5); Glucose 140 mg/dL (80-115); Potassium 3.6 mmol/L (3.5-5.1); Protein, Total 7.7 g/dL (5.8-8.1); Sodium 137 mmol/L (136-145)
== END 2017-09-08 13:36 | disposition home or self-care (01) ==
LOC: ERS 09:53
DX: R56.9 Unspecified convulsions (principal); E11.9 Type 2 diabetes mellitus without complications; B20 Human immunodeficiency virus [HIV] disease; I10 Essential (primary) hypertension; F32.9 Major depressive disorder, single episode, unspecified; F17.210 Nicotine dependence, cigarettes, uncomplicated; Z91.19 Patient's noncompliance with other medical treatment and regimen; Z79.899 Other long term (current) drug therapy
CPT/HCPCS: 36415; 80053; 80185; 84146; 85025; 99284

== ENCOUNTER 2017-11-25 07:52 | Inpatient (IN) | payer MEDICARE, OTHER ==
[2017-11-25] MEDS ORDERED: Lorazepam 2 MG/ML VIAL ONE (07:57)
--- NOTE | 2017-11-25 08:36 | CT ---
NONCONTRAST CT HEAD: Date: 11/25/17 HISTORY: Altered mental status, seizure. Left gaze deviation. COMPARISON: 09/07/17. FINDINGS: There are scattered low density areas seen within the periventricular white matter, which are nonspec ific but likely reflective of mild chronic small vessel ischemic changes. There are a few low density foci seen within the right cerebellar hemisphere, likely related to remote infarctions. There is no evidence of an acute cortical infarction, hemorrhage, mass effect, or midline shift. There is mild ce rebral volume loss not unexpected for the patient's age. The ventricular system is normal in size, sh ape, and position. Minimal mucosal thickening is seen in the ethmoidal air cells. There has been no i nterval change from the prior study. IMPRESSION: 1. No acute intracranial abnormality is demonstrated. 2. Remote infarctions right cerebellar hemisphere. POS: [facility]
[2017-11-25 08:54] LABS: #Basophils 0.1 thou/uL (0.0-0.2); #Eosinphils 0.1 thou/uL (0.0-0.7); #Monocytes 0.4 thou/uL (0.11-0.59); #Neutrophils 8.1 thou/uL (1.40-6.50); %Basophils 0.8 % (0.0-1.0); %Eosinophils 0.8 % (0.0-10.0); %Lymphocytes 25.9 % (21.0-51.0); %Neutrophils 69.5 % (42.0-75.0); Hemoglobin 12.7 g/dL (14.0-18.0); Mean Corpuscular HGB CONC 32.6 g/dL (32.0-36.0); Mean Corpuscular Hemoglobin 28.9 pg (27.0-31.0); Mean Corpuscular Volume 88.5 fL (78.0-98.0); Mean Platelet Volume 6.9 fL (7.4-10.4); Platelet Count 216 thou/uL (130-400); RBC Distribution Width 11.6 % (11.5-14.5); Red Blood Cell (RBC) Count 4.39 mill/uL (4.70-6.10); White Blood Cell (WBC) Count 11.7 thou/uL (4.8-10.8)
[2017-11-25 09:09] LABS: ALT (SGPT) 48 U/L (8-55); AST (SGOT) 26 U/L (5-34); Albumin 3.8 g/dL (3.4-4.8); Alkaline Phosphatase 133 U/L (40-150); Anion Gap 13 mmol/L (10-20); BUN (Urea Nitrogen) 7 mg/dL (8.4-25.7); Bilirubin, Total 0.2 mg/dL (0.2-1.2); CK (CPK) 72 U/L (30-200); Calc. Creatinine Clearance 0 mL/min (70-130); Calcium 8.6 mg/dL (7.8-10.44); Carbon Dioxide 22 mmol/L (23-31); Chloride 108 mmol/L (98-107); Estimated GFR-MDRD Greater than 90; Globulin 3.8 g/dL (2.4-3.5); Glucose 185 mg/dL (80-115); Potassium 3.5 mmol/L (3.5-5.1); Protein, Total 7.6 g/dL (5.8-8.1); Sodium 139 mmol/L (136-145)
[2017-11-25 09:13] LABS: CKMB 0.7 ng/mL (0-6.6); Troponin I Less than 0.010 ng/mL (< 0.028)
--- NOTE | 2017-11-25 09:20 | RAD ---
CHEST 1 VIEW: HISTORY: Seizure. COMPARISON: 09/07/17. FINDINGS: Cardiac silhouette is magnified by projection. Pulmonary vasculature is upper limits of normal but i mproved significantly from the previous exam. Mediastinum is midline. No lobar consolidation or mandeep dence of pneumothorax. IMPRESSION: 1. Borderline pulmonary vascular congestion, improved since the most recent radiograph. 2. No active cardiopulmonary abnormalities are otherwise demonstrated. POS: [facility]
[2017-11-25] MEDS ORDERED: levETIRAcetam In NaCl (Iso-Os) 1,000 MG in Premix Bag 1 BAG IVPB SCH (10:15)
[2017-11-25] MEDS ORDERED: Acetaminophen 325 MG TAB PO PRN ×2 (11:47→11:52)
[2017-11-25] MEDS ORDERED: Ondansetron ODT 4 MG TAB SL PRN (11:47)
[2017-11-25] MEDS ORDERED: Ondansetron HCl/PF 4 MG/2 ML Vial IVP PRN ×2 (11:47→11:52)
[2017-11-25] MEDS ORDERED: Loperamide HCl 2 MG CAP PO PRN (11:52)
[2017-11-25] MEDS ORDERED: Eucerin (Mineral Oil/Petrolatum,White) 30 gm Jar TOP PRN (11:52)
[2017-11-25] MEDS ORDERED: Chloraseptic Spray 180 ml Bottle PO PRN (11:52)
[2017-11-25] MEDS ORDERED: Lorazepam 2 MG/ML VIAL SLOW IVP PRN (11:52)
[2017-11-25] MEDS ORDERED: hydrALAZINE 20 MG/ML VIAL SLOW IVP PRN (11:52)
[2017-11-25] MEDS ORDERED: HYDROcodone/Acetaminophen 5/325 mg Tablet PO PRN (11:52)
[2017-11-25] MEDS ORDERED: Artificial Tears 18 DROP/0.9 ML EA EYE PRN (11:52)
[2017-11-25] MEDS ORDERED: Loratadine 10 MG TAB PO PRN (11:52)
[2017-11-25] MEDS ORDERED: Sodium Chloride 0.65% Nasal 44 ML BOT EA NARE PRN (11:52)
[2017-11-25] MEDS ORDERED: Ondansetron ODT 4 MG TAB PO PRN (11:52)
[2017-11-25] MEDS ORDERED: Zolpidem Tartrate 5 MG TAB PO PRN (11:52)
[2017-11-25] MEDS ORDERED: Diabetic Tussin 200 MG/10 ML UDCUP PO PRN (11:52)
[2017-11-25] MEDS ORDERED: Milk Of Magnesia 30 ML UDCUP PO PRN (11:52)
[2017-11-25] MEDS ORDERED: Mag-Al 1200 mg/1200 mg/30 ML UDCUP PO PRN (11:52)
[2017-11-25] MEDS ORDERED: Senokot 8.6 MG TAB PO PRN (11:52)
[2017-11-25] MEDS ORDERED: Labetalol HCl 100 MG/20 ML VIAL SLOW IVP PRN (11:52)
--- NOTE | 2017-11-25 11:52 | HP ---
DATE OF ADMISSION: 11/25/2017 PRIMARY CARE PHYSICIAN: Cait Murrieta M.D. REASON FOR ADMISSION: Altered mental status (encephalopathy), recurrent seizure. HISTORY OF PRESENT ILLNESS: A 67-year-old male who has underlying history of HIV as well as seizure disorder who was most recently admitted in our hospital for similar problem in 07/2017. At that time, the patient had a seizure. During that admission, the patient was evaluated by Neurology and the patient was given prescription of Keppra 1500 mg twice daily. The patient was discharged and since then, the patient did not have any seizure up until today. The patient was at home and his family members were not present and the patient was having seizure. The patient was found postictal by family member earlier today and subsequently the patient was evaluated by paramedics. The patient also had witnessed seizure by paramedics on the route. The patient was hypertensive with the seizure. The patient had urinary incontinence. As per report, the patient was having generalized tonic clonic seizure and the patient was in postictal phase. Per report, the patient had total 2 seizures at home and 2 seizures by paramedics, so within a few hours , the patient had back to back many seizures. The patient was in postictal phase, though he was maintaining his airway. He did not require intubation this time. When I saw this patient at that time, the patient was in postictal phase. He was hypertensive. He was maintaining saturation normal through nasal cannula. The patient's daughter was present at bedside, but she was not able to provide any more history. As per nursing report, the patient saw last ID clinic. At that time, CD4 count was good, but not appropriately known. Unfortunately, the patient is in postictal phase and he cannot provide any more history and the patient's daughter present at bedside also does not have any more clue because they were not present when seizures started at home, so they cannot provide any history. The patient's daughter reports that the patient is taking his medication as prescribed. He did not have any fever. He did not have any trauma. PAST MEDICAL HISTORY: Seizure disorder, HIV, hypertension, history of polysubstance abuse in the past, diabetes type 2. PAST SURGICAL HISTORY: Reviewed and negative. PAST PSYCHIATRIC HISTORY: Anxiety and depression. ALLERGIES: No known drug allergy. CURRENT HOME MEDICATIONS: Prezcobix one tablet daily, Tivicay one tablet p.o. daily, Intelence 200 mg p.o. b.i.d., Keppra 1500 mg twice daily, amlodipine 10 mg p.o. daily, Ambien 5 mg at bedtime p.r.n., potassium chloride 20 mEq p.o. daily. Above-mentioned medication is based on previous discharge medication. The patient's daughter does not know the name of medication and there are no bottles available with him as well. EMERGENCY ROOM COURSE: The patient was given Ativan 2 mg, Keppra 1 g and IV fluid. SOCIAL HISTORY: The patient lives at home with family. No history of current alcohol abuse. He smokes cigar at variable quantity. He has previous history of drug abuse with marijuana. FAMILY HISTORY: No strong family history of CAD, CVA or cancer. REVIEW OF SYSTEMS: All review of systems tried to be reviewed with the patient , but unfortunately unable to review because of the patient's postictal phase. PHYSICAL EXAMINATION: VITAL SIGNS: On arrival, blood pressure 217/103, pulse 117, respiratory rate 26 , temperature 98.8, saturation 100% on nonrebreather. Currently vital signs, blood pressure 134/84, pulse 99, respiratory rate 20, saturation 98% on 3 liters oxygen. GENERAL: The patient is currently hypertensive, slightly tachycardic, in postictal phase. HEAD: Normocephalic, atraumatic. EYES: Pupils round and now reactive to light. No nystagmus. ENT: Nasal trocar present in nostril, but otherwise normal ear, nose, throat examination. Moist mucous membranes. NECK: Supple. No meningeal signs of irritation. No JVD, no thyromegaly, no carotid bruit. LUNGS: Currently clear to auscultation without any rhonchi or rales. CARDIAC: S1, S2 regular, tachycardia. No murmur, no gallop, no rub. ABDOMEN: Soft. Bowel sounds present. On deep palpation, the patient does not make any grimace. No peritoneal sign. No guarding, no rigidity, no rebound, no organomegaly, no mass, no suprapubic discomfort. BACK: Unremarkable. No point tenderness. EXTREMITIES: Upper extremities, passive movement of all joints are normal. Lower extremities, passive movement of all joints are normal. No edema. Good distal pulsation. SKIN: No skin rash. HEMATOLOGICAL: No lymphadenopathy. PSYCHIATRIC: Unable to assess because of postictal phase. NEUROLOGIC: The patient is in postictal phase, so detailed neurological examination is not possible. At this point, he has spontaneous movement of the limb, but detailed neurological examination is not possible. SIGNIFICANT LABORATORY DATA: EKG showing sinus tachycardia, nonspecific ST-T changes. CT brain based on my review, no acute intracranial process. CBC, WBC 11.7, hemoglobin 12.7, platelet 216,000. BMP, sodium 139, potassium 3.5, chloride 108, carbon dioxide 22, BUN 7, creatinine 0.85, glucose 185, calcium 8.6. LFT, AST 26, ALT 48, alkaline phosphatase is 133, albumin 3.8. CK-MB 0.7. Troponin less than 0.010. CK 72. Lactic acid 2.8. CT brain based on my review, no acute intracranial abnormality, remote infarction in the right cerebellar hemisphere. Chest x-ray based on my review, borderline pulmonary vascular congestion, no active cardiopulmonary process. ASSESSMENT AND PLAN: 1. Acute encephalopathy. This is related with his recurrent seizure and status epilepticus. The patient will need to be monitored in the intermediate medical ICU. Neurology will be consulted. We will do close neuro check. Current episode is related with status epilepticus. 2. Status epilepticus. The patient had back to back several seizures since morning. The patient has underlying seizure disorder. His CT brain is not showing any new acute process. At this point, Neurology will be consulted and the patient is already loaded with Keppra in the emergency room. We will monitor for any further seizure. We will provide Ativan on p.r.n. basis. We will check magnesium, TSH and prolactin level. The patient is currently maintaining his airway. 3. Hypertensive urgency, may be related with his recurrent seizure. The patient's blood pressure is slightly improved in the emergency room. We will closely monitor his hemodynamics. 4. Pulmonary vascular congestion, most likely related with status epilepticus. At this point, he is maintaining his saturation. If needed, we will provide Lasix. 5. Lactic acidosis related with status epilepticus. We will repeat lactic acid level tomorrow. Does not have any signs of infection, but we will check urinalysis and urine drug screen. 6. Human immunodeficiency virus. We will obtain the patient's human immunodeficiency virus medication and while in hospital, we will resume his human immunodeficiency virus medication. 7. Hypertension. We will continue amlodipine 10 mg p.o. daily and p.r.n. basis blood pressure medications. 8. Deep venous thrombosis prophylaxis, Lovenox 40 mg subcu daily. 9. Gastrointestinal prophylaxis, Pepcid 20 mg IV b.i.d. 10. Code status: The patient is full code. The patient does not have any surrogate decision maker. Disposition plan based on clinical course. We are expecting the patient's stay in hospital more than 2 midnights. Plan of care discussed with the patient's daughter at bedside in the emergency room. During this admission, as the patient is going to stay in IM, that is why Pulmonary and Critical Care team will also evaluate this patient per protocol. CICI
[2017-11-25 12:33] VITALS: BMI 26.5
[2017-11-25] MEDS ORDERED: Prevnar 13-Val Conj/PF 0.5 ML SYRINGE IM ONE (13:00)
[2017-11-25 13:43] LABS: Lactic Acid 3.1 mmol/L (0.5-2.2)
--- NOTE | 2017-11-25 14:57 | CON ---
DATE OF CONSULTATION: 11/25/2017 SERVICE: Pulmonary Medicine. REASON FOR CONSULTATION: IMCU patient. HISTORY OF PRESENT ILLNESS: The patient is a 67-year-old -[place] male with past medical history significant for seizure disorder and dementia. He was in his usual state of health when he was discovered to be seizing in his house. EMS services arrived and he was identified as seizing. They were able to get it to stop. The family says that he was taking his medications. En route to the Emergency Department, he had 2 additional seizures, witnessed by the paramedics. Ultimately, he was given multiple doses of benzodiazepine. He was quite sleep on arrival in the Emergency Department, but was protecting his airway. As such, he was observed. No additional seizure activity occurred. He cannot provide any additional elements of the history at this time as he is currently postictal. He appears to be cool, calm and collected with no distress. There are no reports of anything that precipitated these events. Prior to the seizure activity, family tells us that he was in his usual state of health. PAST MEDICAL HISTORY: 1. Hypertension. 2. Type 2 diabetes mellitus. 3. History of polysubstance drug abuse. 4. Human immunodeficiency virus. 5. Seizure disorder. PAST SURGICAL HISTORY: None. SOCIAL HISTORY: He lives at home and is being cared for by family members. There are no reports of him using any alcohol, tobacco or illicit drug use currently. He has a history of marijuana use. FAMILY HISTORY: Noncontributory. ALLERGIES: NKDA MEDICATIONS: Inpatient medications were reviewed. I have initiated gentle IV fluids to keep the patient hydrated. REVIEW OF SYSTEMS: This cannot be obtained as the patient is currently encephalopathic. PHYSICAL EXAMINATION: VITAL SIGNS: Afebrile, pulse 104, blood pressure 139/78, respirations 18, saturation 96% on 3 liters nasal cannula. GENERAL: The patient is awake, alert, no apparent distress. LUNGS: Decent air entry with no prolonged expiratory phase, wheezing, rhonchi or crackles. HEART: Normal rate, regular. ABDOMEN: Soft, nontender, nondistended. Bowel sounds are positive. MUSCULOSKELETAL: No cyanosis or clubbing. There is no pitting in the bilateral lower extremities. If anything, he has skin tenting throughout. GENITOURINARY: No Kimble. NEUROLOGIC: Grossly nonfocal. LABORATORY DATA: WBC is 11.7, hemoglobin 12.7, platelets 216,000. Basic metabolic profile and liver function studies are otherwise unremarkable. Prolactin is actually low. Lactate is 3.1, magnesium 1.9, TSH 0.7. IMAGIN. CT of the brain demonstrates no acute intracranial abnormality. There are remote infarctions to the right cerebellar hemisphere. 2. Chest x-ray demonstrates no acute cardiopulmonary abnormality. ASSESSMENT: 1. Status epilepticus, resolved. 2. Metabolic encephalopathy, secondary to postictal state. 3. Human immunodeficiency virus. 4. History of polysubstance drug abuse. DISCUSSION AND PLAN: Agree with current management. We will watch his neurologic status closely. Neurology opinion is currently pending. The patient is supposed to be on Keppra in the outpatient setting. We will check a level to make certain he was actually using his medications. Pulmonary Critical Care will continue to follow along, but if his mentation perks up, he will be stable for transition to the stroke unit. 70 minutes have been devoted to this patient in various activities. I personally reviewed all imaging studies and laboratory data noted within this document. For fifty percent of this time, I was interacting with the patient at the bedside or coordinating care with the care team. For the remainder of the time I was immediately available to the patient in the hospital unit. CICI
[2017-11-25 16:24] LABS: Amphetamine Not Detected (NotDetected); Barbiturates Screen Detected (NotDetected); Benzodiazepine Screen Detected (NotDetected); Cocaine Metabolite Screen Not Detected (NotDetected); Medtox Control Line Valid? VALID (VALID); Medtox Reader # READER 1; Methadone Not Detected (NotDetected); Methamphetamine Not Detected (NotDetected); Opiate Screen Not Detected (NotDetected); Oxycodone Screen Not Detected (NotDetected); Phencyclidine (PCP) Not Detected (NotDetected); THC/Cannabinoid Screen Not Detected (NotDetected); Tricyclic Screen Not Detected (NotDetected)
[2017-11-25] MEDS: Sodium Chloride 0.45% 1,000 ML IV SCH (16:30)
[2017-11-25] MEDS: levETIRAcetam In NaCl (Iso-Os) 1,500 MG in Premix Bag 1 BAG IVPB SCH (20:28)
[2017-11-25] MEDS: Famotidine/PF 20 mg/2ml Vial SLOW IVP SCH (20:29)
[2017-11-26 04:09] LABS: #Eosinphils 0.1 thou/uL (0.0-0.7); #Lymphocytes 2.3 thou/uL (1.20-3.40); #Monocytes 0.4 thou/uL (0.11-0.59); #Neutrophils 4.4 thou/uL (1.40-6.50); %Basophils 0.2 % (0.0-1.0); %Eosinophils 1.2 % (0.0-10.0); %Lymphocytes 32.6 % (21.0-51.0); %Monocytes 5.2 % (0.0-10.0); %Neutrophils 60.8 % (42.0-75.0); Hemoglobin 10.5 g/dL (14.0-18.0); Mean Corpuscular Hemoglobin 30.1 pg (27.0-31.0); Mean Corpuscular Volume 88.5 fL (78.0-98.0); Mean Platelet Volume 7.2 fL (7.4-10.4); Platelet Count 185 thou/uL (130-400); RBC Distribution Width 11.4 % (11.5-14.5); White Blood Cell (WBC) Count 7.2 thou/uL (4.8-10.8)
[2017-11-26 04:10] LABS: Lactic Acid 0.9 mmol/L (0.5-2.2)
[2017-11-26 04:15] LABS: Anion Gap 9 mmol/L (10-20); BUN (Urea Nitrogen) 8 mg/dL (8.4-25.7); Calc. Creatinine Clearance 88 mL/min (70-130); Calcium 8.4 mg/dL (7.8-10.44); Carbon Dioxide 26 mmol/L (23-31); Chloride 108 mmol/L (98-107); Estimated GFR-MDRD Greater than 90; Glucose 89 mg/dL (80-115); Potassium 3.4 mmol/L (3.5-5.1); Sodium 140 mmol/L (136-145)
[2017-11-26] MEDS: Sodium Chloride 0.45% 1,000 ML IV SCH (05:52)
[2017-11-26] MEDS ORDERED: Potassium Chloride 20 MEQ TAB PO SCH (06:45)
[2017-11-26] MEDS: Enoxaparin Sodium 40 MG/0.4 ML SYRINGE SC SCH (08:32)
[2017-11-26] MEDS: levETIRAcetam In NaCl (Iso-Os) 1,500 MG in Premix Bag 1 BAG IVPB SCH ×3 (08:33→21:12)
[2017-11-26] MEDS: Famotidine/PF 20 mg/2ml Vial SLOW IVP SCH ×2 (08:33→21:12)
--- NOTE | 2017-11-26 10:31 | PDOC.PN ---
- Subjective Encounter Start Date: 11/26/17 Encounter Start Time: 09:00 -: old records requested/rev Patient seen and examined. No new complaints. No overnight events - Objective Resuscitation Status: Resuscitation Status FULL:Full Resuscitation MAR Reviewed: Yes Vital Signs & Weight: Vital Signs (12 hours) Temp Pulse Resp BP Pulse Ox 11/26/17 08:00 98 11/26/17 07:24 98.4 F 67 18 133/60 98 11/26/17 04:00 98.1 F 69 16 132/58 L 98 11/26/17 00:00 99 F 77 18 119/56 L 94 L Weight Weight 150 lb I&O: 11/25/17 11/26/17 11/27/17 06:59 06:59 06:59 Intake Total 1615 Output Total 1000 Balance 615 Result Diagrams: 11/26/17 03:33 11/26/17 03:33 EKG Reviewed by me: Yes (nsr) Phys Exam - Physical Examination Constitutional: NAD HEENT: PERRLA, moist MMs, sclera anicteric Neck: no JVD, supple Respiratory: no wheezing, no rales, no rhonchi Cardiovascular: RRR, no significant murmur, no rub Gastrointestinal: soft, non-tender, no distention, positive bowel sounds Musculoskeletal: no edema, pulses present Neurological: non-focal, normal sensation Psychiatric: normal affect, A&O x 3 Skin: no rash, normal turgor Dx/Plan (1) Encephalopathy acute Code(s): G93.40 - ENCEPHALOPATHY, UNSPECIFIED Status: Resolved Comment: (2) Hypertensive urgency Code(s): I16.0 - HYPERTENSIVE URGENCY Status: Acute Comment: (3) Hypokalemia Code(s): E87.6 - HYPOKALEMIA Status: Acute Comment: Replete (4) Lactic acidosis Code(s): E87.2 - ACIDOSIS Status: Resolved (5) Status epilepticus Code(s): G40.901 - EPILEPSY, UNSP, NOT INTRACTABLE, WITH STATUS EPILEPTICUS Status: Acute Comment: (6) HIV (human immunodeficiency virus infection) Status: Chronic Comment: (7) HTN (hypertension) Code(s): I10 - ESSENTIAL (PRIMARY) HYPERTENSION Status: Chronic Qualifiers: Comment: (8) Seizure disorder Code(s): G40.909 - EPILEPSY, UNSP, NOT INTRACTABLE, WITHOUT STATUS EPILEPTICUS Status: Chronic Comment: - Plan cont current plan of care * transfer to stroke floor * neurology consulted * overall stable and seizure free * medication reviewed as below * symptomatic treatment * expecting discharge tomorrow if no further seizure. Review of Systems - Review of Systems ENT: negative: Ear Pain, Ear Discharge, Nose Pain, Nose Discharge, Nose Congestion, Mouth Pain, Mouth Swelling, Throat Pain, Throat Swelling, Other Respiratory: negative: Cough, Dry, Shortness of Breath, Hemoptysis, SOB with Excertion, Pleuritic Pain, Sputum, Wheezing Cardiovascular: negative: chest pain, palpitations, orthopnea, paroxysmal nocturnal dyspnea, edema, light headedness, other Gastrointestinal: negative: Nausea, Vomiting, Abdominal Pain, Diarrhea, Constipation, Melena, Hematochezia, Other Genitourinary: negative: Dysuria, Frequency, Incontinence, Hematuria, Retention , Other Musculoskeletal: negative: Neck Pain, Shoulder Pain, Arm Pain, Back Pain, Hand Pain, Leg Pain, Foot Pain, Other Skin: negative: Rash, Lesions, Cordell, Bruising, Other - Medications/Allergies Allergies/Adverse Reactions: Allergies Allergy/AdvReac Type Severity Reaction Status Date / Time fosphenytoin Allergy Verified 11/25/17 12:26 Medications: Current Medications Acetaminophen (Tylenol) 650 mg PO Q4H PRN PRN Reason: Headache/Fever or Pain Last Admin: 11/25/17 18:34 Dose: 650 mg Hydrocodone Bitart/Acetaminophen ([place] 5/325) 1 tab PO Q4H PRN PRN Reason: Moderate Pain (4-6) Al Hydroxide/Mg Hydroxide (Maalox) 30 ml PO Q6H PRN PRN Reason: Heartburn or Indigestion Artificial Tears (Tears Naturale) 0 drop EA EYE PRN PRN PRN Reason: Dry Eyes Enoxaparin Sodium (Lovenox) 40 mg SC 0900 [facility] Last Admin: 11/26/17 08:32 Dose: 40 mg Famotidine (Pepcid) 20 mg SLOW IVP Q12HR [facility] Last Admin: 11/26/17 08:33 Dose: 20 mg Guaifenesin (Robitussin Sf) 200 mg PO Q4H PRN PRN Reason: Cough Hydralazine HCl (Apresoline) 10 mg SLOW IVP Q4H PRN PRN Reason: Systolic BP > 180 Levetiracetam 1,500 mg/ Device 100 mls @ 200 mls/hr IVPB BID [facility] Last Admin: 11/26/17 08:33 Dose: 100 mls Sodium Chloride (1/2 Normal Saline) 1,000 mls @ 75 mls/hr IV .[id number] [facility] Last Admin: 11/26/17 05:52 Dose: 1,000 mls Labetalol HCl (Normodyne) 20 mg SLOW IVP Q4H PRN PRN Reason: Systolic BP > 180 Loperamide HCl (Imodium) 2 mg PO PRN PRN PRN Reason: Diarrhea/Loose Stools Loratadine (Claritin) 10 mg PO DAILYPRN PRN PRN Reason: Sinus Symptoms Lorazepam (Ativan) 2 mg SLOW IVP Q15MIN PRN PRN Reason: Seizures Magnesium Hydroxide (Milk Of Magnesium) 30 ml PO DAILYPRN PRN PRN Reason: Constipation Mineral Oil/White Petrolatum (Eucerin Cream) 0 gm TOP BIDPRN PRN PRN Reason: Dry Skin Ondansetron HCl (Zofran Odt) 4 mg PO Q6H PRN PRN Reason: Nausea/Vomiting Ondansetron HCl (Zofran) 4 mg IVP Q6H PRN PRN Reason: Nausea/Vomiting Phenol (Chloraseptic [place] 180 Ml Bot) 0 ml PO PRN PRN PRN Reason: Sore Throat Senna (Senokot) 2 tab PO HSPRN PRN PRN Reason: Constipation Sodium Chloride ([place] Nasal [place] 0.65%) 0 ml EA NARE QIDPRN PRN PRN Reason: Nasal Congestion Sodium Chloride (Flush - Normal Saline) 10 ml IVF Q12HR [facility] Last Admin: 11/25/17 21:28 Dose: Not Given Sodium Chloride (Flush - Normal Saline) 10 ml IVF PRN PRN PRN Reason: Saline Flush Zolpidem Tartrate (Ambien) 5 mg PO HSPRN PRN PRN Reason: Insomnia
--- NOTE | 2017-11-26 12:54 | PRG ---
DATE OF SERVICE: 11/26/2017 SERVICE: Pulmonary Medicine. INTERVAL HISTORY: The patient is doing fine from a respiratory standpoint. He denies any current ch est pain, nausea, vomiting, fevers or chills. I found him awake and cooperative this morning. He is alert. He has no other specific complaints. PHYSICAL EXAMINATION: VITAL SIGNS: Afebrile, pulse 68, blood pressure 133/69, respirations 16, saturation 98% on room air. GENERAL: The patient is awake, alert, no apparent distress. LUNGS: Excellent air entry with no prolonged expiratory phase or wheezing present. HEART: Normal rate, regular. ABDOMEN: Soft, nontender, nondistended. Bowel sounds are positive. MUSCULOSKELETAL: No cyanosis or clubbing. There is no pitting in the bilateral lower extremities. NEUROLOGIC: Grossly nonfocal. LABORATORY DATA: WBC 7.2, hemoglobin 10.5, platelets 185,000. Differential is normal. Basic metabo lic profile is unremarkable except for potassium of 3.4. Lactate has trended down to the normal rang e. ASSESSMENT: 1. Status epilepticus, resolved. 2. Metabolic encephalopathy secondary to postictal state, resolved. 3. Human immunodeficiency virus. 4. History of polysubstance drug abuse. DISCUSSION AND PLAN: The patient is stable for transition to the medical or Neurology unit. When he leaves the [facility], he will have no further requirements for inpatient Pulmonary or Critical Care opini on and I will sign off. Please call with additional questions or concerns moving forward.
[2017-11-27] MEDS ORDERED: levETIRAcetam 500 MG TAB PO SCH (01:00)
[2017-11-27] MEDS: levETIRAcetam In NaCl (Iso-Os) 1,500 MG in Premix Bag 1 BAG IVPB SCH (05:57)
[2017-11-27] MEDS: Famotidine/PF 20 mg/2ml Vial SLOW IVP SCH ×2 (08:07→22:06)
[2017-11-27] MEDS: Enoxaparin Sodium 40 MG/0.4 ML SYRINGE SC SCH (08:08)
[2017-11-27] MEDS: levETIRAcetam 500 MG TAB PO SCH ×2 (08:08→22:06)
--- NOTE | 2017-11-27 15:01 | PDOC.PN ---
- Subjective Encounter Start Date: 11/27/17 Encounter Start Time: 15:00 Subjective: nsg notes rev, ryley ovn, pt no new c/o but doesn't know where he is, or -: what has happened, or what is going on. recalls full name, knows [facility] -: cannot remember yesterday, last week, or who his is - Objective Resuscitation Status: Resuscitation Status FULL:Full Resuscitation Vital Signs & Weight: Vital Signs (12 hours) Temp Pulse Resp BP Pulse Ox 11/27/17 12:00 98.6 F 73 20 158/85 H 96 11/27/17 08:00 98.5 F 66 16 154/93 H 98 11/27/17 04:00 98.3 F 68 16 147/83 H 96 Weight Weight 150 lb I&O: 11/26/17 11/27/17 11/28/17 06:59 06:59 06:59 Intake Total 1615 780 Output Total 1000 650 Balance 615 130 Result Diagrams: 11/26/17 03:33 11/26/17 03:33 Phys Exam - Physical Examination Constitutional: NAD lying in hospital bed HEENT: PERRLA Respiratory: no wheezing, no rales, no rhonchi, clear to auscultation bilateral Cardiovascular: RRR, no significant murmur, no rub Gastrointestinal: soft, positive bowel sounds Musculoskeletal: no edema, pulses present Neurological: moves all 4 limbs Psychiatric: normal affect see subjective Dx/Plan - Plan (1) Encephalopathy acute Code(s): G93.40 - ENCEPHALOPATHY, UNSPECIFIED Status: Resolved Comment: unclear what the baseline is, but d/w family and it appears that he has been having progressive cognitive decline at baseline to the point he lost his car and apartment due to failure to pay apprec neurology c/s (2) Hypertensive urgency Code(s): I16.0 - HYPERTENSIVE URGENCY Status: Acute Comment: resolved, stable, continue current regimen (3) Hypokalemia Code(s): E87.6 - HYPOKALEMIA Status: Acute Comment: Repleted (4) Lactic acidosis Code(s): E87.2 - ACIDOSIS Status: Resolved (5) Status epilepticus Code(s): G40.901 - EPILEPSY, UNSP, NOT INTRACTABLE, WITH STATUS EPILEPTICUS Status: Acute Comment: no further seizure, but concerned about protracted post ictal state also exacerbated by a baseline decline in cognition (6) HIV (human immunodeficiency virus infection) Status: Chronic Comment: (7) HTN (hypertension) Code(s): I10 - ESSENTIAL (PRIMARY) HYPERTENSION Status: Chronic Qualifiers: Comment: (8) Seizure disorder Code(s): G40.909 - EPILEPSY, UNSP, NOT INTRACTABLE, WITHOUT STATUS EPILEPTICUS Status: Chronic Comment: - Plan d/w pt and family - would agree with a residential SNF placement - case mgmt consult placed diet: as lito activity: as lito dvt ppx Review of Systems - Medications/Allergies Allergies/Adverse Reactions: Allergies Allergy/AdvReac Type Severity Reaction Status Date / Time fosphenytoin Allergy Verified 11/25/17 12:26 Medications: Current Medications Acetaminophen (Tylenol) 650 mg PO Q4H PRN PRN Reason: Headache/Fever or Pain Last Admin: 11/25/17 18:34 Dose: 650 mg Hydrocodone Bitart/Acetaminophen ([place] 5/325) 1 tab PO Q4H PRN PRN Reason: Moderate Pain (4-6) Al Hydroxide/Mg Hydroxide (Maalox) 30 ml PO Q6H PRN PRN Reason: Heartburn or Indigestion Artificial Tears (Tears Naturale) 0 drop EA EYE PRN PRN PRN Reason: Dry Eyes Enoxaparin Sodium (Lovenox) 40 mg SC 0900 [facility] Last Admin: 11/27/17 08:08 Dose: 40 mg Famotidine (Pepcid) 20 mg SLOW IVP Q12HR [facility] [place] Last Admin: 11/27/17 08:07 Dose: Not Given Guaifenesin (Robitussin Sf) 200 mg PO Q4H PRN PRN Reason: Cough Hydralazine HCl (Apresoline) 10 mg SLOW IVP Q4H PRN PRN Reason: Systolic BP > 180 Labetalol HCl (Normodyne) 20 mg SLOW IVP Q4H PRN PRN Reason: Systolic BP > 180 Levetiracetam (Keppra) 1,500 mg PO BID [facility] Last Admin: 11/27/17 08:08 Dose: 1,500 mg Loperamide HCl (Imodium) 2 mg PO PRN PRN PRN Reason: Diarrhea/Loose Stools Loratadine (Claritin) 10 mg PO DAILYPRN PRN PRN Reason: Sinus Symptoms Lorazepam (Ativan) 2 mg SLOW IVP Q15MIN PRN PRN Reason: Seizures Magnesium Hydroxide (Milk Of Magnesium) 30 ml PO DAILYPRN PRN PRN Reason: Constipation Mineral Oil/White Petrolatum (Eucerin Cream) 0 gm TOP BIDPRN PRN PRN Reason: Dry Skin Ondansetron HCl (Zofran Odt) 4 mg PO Q6H PRN PRN Reason: Nausea/Vomiting Ondansetron HCl (Zofran) 4 mg IVP Q6H PRN PRN Reason: Nausea/Vomiting Phenol (Chloraseptic [place] 180 Ml Bot) 0 ml PO PRN PRN PRN Reason: Sore Throat Senna (Senokot) 2 tab PO HSPRN PRN PRN Reason: Constipation Sodium Chloride (Riley Nasal [place] 0.65%) 0 ml EA NARE QIDPRN PRN PRN Reason: Nasal Congestion Sodium Chloride (Flush - Normal Saline) 10 ml IVF Q12HR [facility] Last Admin: 11/27/17 08:19 Dose: Not Given Sodium Chloride (Flush - Normal Saline) 10 ml IVF PRN PRN PRN Reason: Saline Flush Zolpidem Tartrate (Ambien) 5 mg PO HSPRN PRN PRN Reason: Insomnia
[2017-11-27] MEDS ORDERED: Famotidine 20 MG TAB PO SCH (22:45)
[2017-11-28 07:37] LABS: #Eosinphils 0.1 thou/uL (0.0-0.7); #Lymphocytes 2.1 thou/uL (1.20-3.40); #Monocytes 0.4 thou/uL (0.11-0.59); #Neutrophils 2.9 thou/uL (1.40-6.50); %Basophils 0.4 % (0.0-1.0); %Eosinophils 1.6 % (0.0-10.0); %Lymphocytes 38.3 % (21.0-51.0); %Monocytes 6.3 % (0.0-10.0); %Neutrophils 53.3 % (42.0-75.0); Hemoglobin 11.1 g/dL (14.0-18.0); Mean Corpuscular HGB CONC 33.9 g/dL (32.0-36.0); Mean Corpuscular Hemoglobin 29.3 pg (27.0-31.0); Mean Corpuscular Volume 86.6 fL (78.0-98.0); Mean Platelet Volume 7.3 fL (7.4-10.4); Platelet Count 185 thou/uL (130-400); RBC Distribution Width 11.1 % (11.5-14.5); Red Blood Cell (RBC) Count 3.78 mill/uL (4.70-6.10); White Blood Cell (WBC) Count 5.5 thou/uL (4.8-10.8)
[2017-11-28 07:48] LABS: Anion Gap 8 mmol/L (10-20); BUN (Urea Nitrogen) 6 mg/dL (8.4-25.7); Calc. Creatinine Clearance 84 mL/min (70-130); Calcium 8.5 mg/dL (7.8-10.44); Carbon Dioxide 24 mmol/L (23-31); Chloride 109 mmol/L (98-107); Estimated GFR-MDRD Greater than 90; Glucose 90 mg/dL (80-115); Potassium 3.3 mmol/L (3.5-5.1); Sodium 138 mmol/L (136-145)
[2017-11-28] MEDS ORDERED: Potassium Chloride 20 MEQ TAB PO SCH ×2 (08:00→12:15)
[2017-11-28] MEDS: Enoxaparin Sodium 40 MG/0.4 ML SYRINGE SC SCH (08:47)
[2017-11-28] MEDS: Famotidine 20 MG TAB PO SCH ×2 (08:48→21:10)
[2017-11-28] MEDS: levETIRAcetam 500 MG TAB PO SCH ×2 (08:48→21:10)
[2017-11-28] MEDS ORDERED: Non-Formulary Item 1 EACH (Dolutegravir Sodium [Tivicay] 50 MG) PO SCH (09:00)
[2017-11-28] MEDS ORDERED: PREZCOBIX PO SCH (09:00)
[2017-11-28] MEDS ORDERED: DARUNAVIR PO SCH (09:00)
[2017-11-28] MEDS ORDERED: TIVICAY 50 MG PO SCH (09:00)
[2017-11-28] MEDS ORDERED: COBICISTAT PO SCH (09:00)
[2017-11-28] MEDS ORDERED: [UNRECOGNIZED DRUG - OTHER] PO SCH (09:00)
--- NOTE | 2017-11-28 10:58 | PDOC.PN ---
- Subjective Encounter Start Date: 11/28/17 Encounter Start Time: 07:10 -: old records requested/rev Patient seen and examined. No new complaints. No overnight events - Objective Resuscitation Status: Resuscitation Status FULL:Full Resuscitation MAR Reviewed: Yes Vital Signs & Weight: Vital Signs (12 hours) Temp Pulse Pulse Pulse Resp BP BP 11/28/17 09:00 73 73 128/65 132/76 11/28/17 07:59 98.2 F 70 18 11/28/17 04:00 98.0 F 65 16 11/27/17 23:56 98.4 F 82 16 BP Pulse Ox 11/28/17 09:00 11/28/17 07:59 151/76 H 97 11/28/17 04:00 137/81 98 11/27/17 23:56 138/76 97 Weight Weight 150 lb I&O: 11/27/17 11/28/17 11/29/17 06:59 06:59 06:59 Intake Total 780 Output Total 650 Balance 130 Result Diagrams: 11/28/17 07:20 11/28/17 07:20 EKG Reviewed by me: Yes Phys Exam - Physical Examination Constitutional: NAD HEENT: PERRLA, moist MMs, sclera anicteric Neck: no JVD, supple Respiratory: no wheezing, no rales, no rhonchi Cardiovascular: RRR, no significant murmur, no rub Gastrointestinal: soft, non-tender, no distention, positive bowel sounds Musculoskeletal: no edema, pulses present Neurological: non-focal, normal sensation, moves all 4 limbs Psychiatric: normal affect, A&O x 3 Skin: no rash, normal turgor Dx/Plan (1) Encephalopathy acute Code(s): G93.40 - ENCEPHALOPATHY, UNSPECIFIED Status: Resolved Comment: (2) Hypertensive urgency Code(s): I16.0 - HYPERTENSIVE URGENCY Status: Resolved Comment: (3) Hypokalemia Code(s): E87.6 - HYPOKALEMIA Status: Acute Comment: Replete (4) Lactic acidosis Code(s): E87.2 - ACIDOSIS Status: Resolved (5) Status epilepticus Code(s): G40.901 - EPILEPSY, UNSP, NOT INTRACTABLE, WITH STATUS EPILEPTICUS Status: Resolved Comment: (6) HIV (human immunodeficiency virus infection) Status: Chronic Comment: (7) HTN (hypertension) Code(s): I10 - ESSENTIAL (PRIMARY) HYPERTENSION Status: Chronic Qualifiers: Comment: (8) Seizure disorder Code(s): G40.909 - EPILEPSY, UNSP, NOT INTRACTABLE, WITHOUT STATUS EPILEPTICUS Status: Chronic Comment: - Plan cont 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 Review of Systems - Review of Systems Eyes: negative: Pain, Vision Change, Conjunctivae Inflammation, Eyelid Inflammation, Redness, Other ENT: negative: Ear Pain, Ear Discharge, Nose Pain, Nose Discharge, Nose Congestion, Mouth Pain, Mouth Swelling, Throat Pain, Throat Swelling, Other Respiratory: negative: Cough, Dry, Shortness of Breath, Hemoptysis, SOB with Excertion, Pleuritic Pain, Sputum, Wheezing Cardiovascular: negative: chest pain, palpitations, orthopnea, paroxysmal nocturnal dyspnea, edema, light headedness, other Gastrointestinal: negative: Nausea, Vomiting, Abdominal Pain, Diarrhea, Constipation, Melena, Hematochezia, Other Genitourinary: negative: Dysuria, Frequency, Incontinence, Hematuria, Retention , Other Musculoskeletal: negative: Neck Pain, Shoulder Pain, Arm Pain, Back Pain, Hand Pain, Leg Pain, Foot Pain, Other Skin: negative: Rash, Lesions, [place], Bruising, Other Neurological: negative: Weakness, Numbness, Incoordination, Change in Speech, Confusion, Seizures, Other - Medications/Allergies Allergies/Adverse Reactions: Allergies Allergy/AdvReac Type Severity Reaction Status Date / Time fosphenytoin Allergy Verified 11/25/17 12:26 Medications: Current Medications Acetaminophen (Tylenol) 650 mg PO Q4H PRN PRN Reason: Headache/Fever or Pain Last Admin: 11/25/17 18:34 Dose: 650 mg Hydrocodone Bitart/Acetaminophen ([place] 5/325) 1 tab PO Q4H PRN PRN Reason: Moderate Pain (4-6) Al Hydroxide/Mg Hydroxide (Maalox) 30 ml PO Q6H PRN PRN Reason: Heartburn or Indigestion Artificial Tears (Tears Naturale) 0 drop EA EYE PRN PRN PRN Reason: Dry Eyes Donepezil HCl (Aricept) 5 mg PO HS [facility] Enoxaparin Sodium (Lovenox) 40 mg SC 0900 [facility] Last Admin: 11/28/17 08:47 Dose: 40 mg Famotidine (Pepcid) 20 mg PO BID [facility] Last Admin: 11/28/17 08:48 Dose: 20 mg Guaifenesin (Robitussin Sf) 200 mg PO Q4H PRN PRN Reason: Cough Hydralazine HCl (Apresoline) 10 mg SLOW IVP Q4H PRN PRN Reason: Systolic BP > 180 Labetalol HCl (Normodyne) 20 mg SLOW IVP Q4H PRN PRN Reason: Systolic BP > 180 Levetiracetam (Keppra) 1,500 mg PO BID [facility] Last Admin: 11/28/17 08:48 Dose: 1,500 mg Loperamide HCl (Imodium) 2 mg PO PRN PRN PRN Reason: Diarrhea/Loose Stools Loratadine (Claritin) 10 mg PO DAILYPRN PRN PRN Reason: Sinus Symptoms Lorazepam (Ativan) 2 mg SLOW IVP Q15MIN PRN PRN Reason: Seizures Magnesium Hydroxide (Milk Of Magnesium) 30 ml PO DAILYPRN PRN PRN Reason: Constipation Mineral Oil/White Petrolatum (Eucerin Cream) 0 gm TOP BIDPRN PRN PRN Reason: Dry Skin Ondansetron HCl (Zofran Odt) 4 mg PO Q6H PRN PRN Reason: Nausea/Vomiting Ondansetron HCl (Zofran) 4 mg IVP Q6H PRN PRN Reason: Nausea/Vomiting [Tivicay] 50 Mg 0 each PO DAILY [facility] [Prezcobix 800 Mg- 150 Mg Tablet] 1 Each 0 each PO DAILY [facility] Phenol (Chloraseptic [place] 180 Ml Bot) 0 ml PO PRN PRN PRN Reason: Sore Throat Senna (Senokot) 2 tab PO HSPRN PRN PRN Reason: Constipation Sertraline HCl (Zoloft) 100 mg PO DAILY [facility] Last Admin: 11/28/17 08:49 Dose: 100 mg Sodium Chloride (Ware Nasal [place] 0.65%) 0 ml EA NARE QIDPRN PRN PRN Reason: Nasal Congestion Sodium Chloride (Flush - Normal Saline) 10 ml IVF Q12HR [facility] Last Admin: 11/28/17 08:49 Dose: Not Given Sodium Chloride (Flush - Normal Saline) 10 ml IVF PRN PRN PRN Reason: Saline Flush Zolpidem Tartrate (Ambien) 5 mg PO HSPRN PRN PRN Reason: Insomnia
[2017-11-28] MEDS ORDERED: Donepezil HCl 5 MG TAB PO SCH (21:00)
[2017-11-29] MEDS ORDERED: Amlodipine 5 MG TAB PO SCH (09:00)
[2017-11-29] MEDS ORDERED: Aspirin 81 mg Enteric Coated Tablet PO SCH (09:00)
[2017-11-29] MEDS: Enoxaparin Sodium 40 MG/0.4 ML SYRINGE SC SCH (09:02)
[2017-11-29] MEDS: levETIRAcetam 500 MG TAB PO SCH (09:03)
[2017-11-29] MEDS: Famotidine 20 MG TAB PO SCH (09:03)
[2017-11-29 09:26] LABS: Anion Gap 12 mmol/L (10-20); BUN (Urea Nitrogen) 7 mg/dL (8.4-25.7); Calc. Creatinine Clearance 85 mL/min (70-130); Carbon Dioxide 19 mmol/L (23-31); Chloride 109 mmol/L (98-107); Estimated GFR-MDRD Greater than 90; Glucose 121 mg/dL (80-115); Magnesium 1.8 mg/dL (1.6-2.6); Phosphorus 2.7 mg/dL (2.3-4.7); Potassium 3.8 mmol/L (3.5-5.1); Sodium 136 mmol/L (136-145)
--- NOTE | 2017-11-29 10:23 | DIS ---
DATE OF ADMISSION: 11/25/2017 DATE OF DISCHARGE: 11/29/2017 PRIMARY CARE PHYSICIAN: Dr. Cait Murrieta. DISCHARGE DISPOSITION: [facility] home. PRIMARY DISCHARGE DIAGNOSES: 1. Status epilepticus, controlled. 2. Lactic acidosis, corrected. 3. Hypertensive urgency, corrected. 4. Acute encephalopathy, resolved. 5. Hypokalemia, corrected. SECONDARY DISCHARGE DIAGNOSES: Human immunodeficiency virus, hypertension, seizure disorder, anxiety and depression, mild dementia. PRIMARY PROCEDURE AND OPERATION: None. RADIOLOGICAL INVESTIGATION: CT brain was negative for any acute intracranial process. Chest x-ray n egative for any acute cardiopulmonary process. SIGNIFICANT LABORATORY DATA: WBC 5.5, hemoglobin 11.1, platelet 185. Sodium 136, potassium 3.8, BUN 7, creatinine 0.79, phosphorus 2.7, magnesium 1.8. Keppra level 13.5. DISCHARGE MEDICATIONS: Prezcobix 800 mg 1 tablet daily, Tivicay one tablet 50 mg daily, Aricept 5 mg p.o. at bedtime, Zoloft 300 mg p.o. daily, amlodipine 5 mg p.o. daily, aspirin 81 mg p.o. daily, Lip itor 10 mg p.o. daily, Pepcid 20 mg p.o. b.i.d., Keppra 1500 mg p.o. b.i.d. CONTRAINDICATIONS: None. CODE STATUS: FULL CODE. INPATIENT CONSULTANTS: Dr. Nguyen saw this patient because patient was admitted in [facility]. Neurology was consulted while in hospital. TEST RESULTS PENDING ON DISCHARGE: None. ALLERGIES: FOSPHENYTOIN. DISCHARGE PLAN: Post hospital, the patient will follow up with primary care physician, neurologist, and Dr. Mishra as instructed. HOSPITAL COURSE: A 67-year-old male who has HIV and he has underlying seizure disorder. He was brou ght to emergency room with recurrent generalized tonic-clonic seizure, which was witnessed. The guicho ent had several seizures before coming to the hospital as well as on the route. He was diagnosed wit h status epilepticus. He was having postictal encephalopathy. Patient required [facility] admission becau se of close monitoring. He did not require any intubation at this time. He was afebrile while in [facility]. He had lactic acidosis that was related with seizure which was improved with hydration. His hypokalemia was corrected while in hospital. Upon stabilization, we transferred him to stroke floor . The patient was treated with IV Keppra while in hospital. On discharge, we changed to Keppra p.o. Pulmonary and Critical Care was following this patient in [facility]. Neurology was consulted. We resum ed all his previous home medication. During this admission, we started amlodipine, Lipitor, and aspi rin on top of his previous medication. The patient is seen and examined today. All review of system reviewed with him and negative. His vi tals are stable. His physical examination is unchanged. Paper work for discharge done. Discharge medication reconciliation done. Total time spent on discharge day 31 minutes.
[2017-11-29 11:25] VITALS: BP 156/80; TEMP 98.1
[2017-11-29] MEDS ORDERED: Atorvastatin Calcium 10 MG TAB PO SCH (21:00)
== END 2017-11-29 14:33 | DRG 100 ==
LOC: ERS 07:52 → IMCU/EMU 11:23 → 2SE 11-26 12:55
PROVIDERS: ADMIT Internal Medicine; ATTEND Internal Medicine
DX: G40.401 Other generalized epilepsy and epileptic syndromes, not intractable, with status epilepticus (principal); B20 Human immunodeficiency virus [HIV] disease; G93.41 Metabolic encephalopathy; E87.2 Acidosis; I10 Essential (primary) hypertension; E11.9 Type 2 diabetes mellitus without complications; F41.9 Anxiety disorder, unspecified; F32.9 Major depressive disorder, single episode, unspecified; I16.0 Hypertensive urgency; R09.89 Other specified symptoms and signs involving the circulatory and respiratory systems; E87.6 Hypokalemia; F03.90 Unspecified dementia, unspecified severity, without behavioral disturbance, psychotic disturbance, mood disturbance, and anxiety
CPT/HCPCS: 36415; 36416; 36680; 70450; 71045; 80048; 80053; 80177; 80306; 82553; 83605; 83735; 84100; 84146; 84443; 84484; 85025; 93005; 96361; 96365; A4216; G8978-GP-CJ; G8979-GP-CI; J1650; J1953; J2060; S0028

== ENCOUNTER 2018-03-18 13:50 | Observation (INO) | payer MEDICARE, OTHER ==
[2018-03-18 14:38] LABS: #Eosinphils 0.1 thou/uL (0.0-0.7); #Lymphocytes 1.9 thou/uL (1.20-3.40); #Monocytes 0.3 thou/uL (0.11-0.59); #Neutrophils 4.3 thou/uL (1.40-6.50); %Basophils 0.4 % (0.0-1.0); %Eosinophils 1.2 % (0.0-10.0); %Lymphocytes 28.8 % (21.0-51.0); %Neutrophils 65.5 % (42.0-75.0); Hemoglobin 13.3 g/dL (14.0-18.0); Mean Corpuscular HGB CONC 34.4 g/dL (32.0-36.0); Mean Corpuscular Hemoglobin 29.1 pg (27.0-31.0); Mean Corpuscular Volume 84.6 fL (78.0-98.0); Mean Platelet Volume 7.3 fL (7.4-10.4); Platelet Count 173 thou/uL (130-400); RBC Distribution Width 11.3 % (11.5-14.5); Red Blood Cell (RBC) Count 4.56 mill/uL (4.70-6.10); White Blood Cell (WBC) Count 6.6 thou/uL (4.8-10.8)
[2018-03-18 14:59] LABS: ALT (SGPT) 24 U/L (8-55); AST (SGOT) 22 U/L (5-34); Albumin 4.2 g/dL (3.4-4.8); Alkaline Phosphatase 80 U/L (40-150); Anion Gap 16 mmol/L (10-20); BUN (Urea Nitrogen) 15 mg/dL (8.4-25.7); Bilirubin, Total 0.4 mg/dL (0.2-1.2); Calc. Creatinine Clearance 0 mL/min (70-130); Calcium 9.4 mg/dL (7.8-10.44); Carbon Dioxide 22 mmol/L (23-31); Chloride 105 mmol/L (98-107); Estimated GFR-MDRD 78; Glucose 213 mg/dL (80-115); Potassium 3.8 mmol/L (3.5-5.1); Protein, Total 8.2 g/dL (5.8-8.1); Sodium 139 mmol/L (136-145)
--- NOTE | 2018-03-18 17:12 | CT ---
CT OF HEAD NONCONTRAST: 03/18/18 COMPARISON: 11/25/17. INDICATION: Seizure. Head injury. FINDINGS: There is mild parenchymal volume loss with compensatory dilatation of ventricular system. No acute in tracranial hemorrhage, mass effect or midline shift. Evidence of mild microvascular ischemic disease of the cerebral white matter is present. There is no acute fluid level of the paranasal sinuses where visualized. IMPRESSION: No acute intracranial hemorrhage or mass effect. POS: [facility]
[2018-03-18] MEDS ORDERED: Fosphenytoin Sodium 150 MG in Sodium Chloride 0.9% 50 ML IVPB SCH (18:15)
[2018-03-18 20:04] LABS: Bilirubin Negative (Negative); Blood, Urine Negative (Negative); Clarity CLEAR (Clear); Glucose, Urine (Dipstick) Negative (Negative); Leukocyte Negative (Negative); Nitrite Negative (Negative); Protein, Urine (Dipstick) Negative (Neg-Trace); Specific Gravity, Urine 1.014 (1.002-1.036); Urobilinogen 0.2 mg/dL (0.2-1.0); pH, Urine 5.5 (5.0-9.0)
[2018-03-18 20:14] LABS: Amphetamine Not Detected (NotDetected); Barbiturates Screen Not Detected (NotDetected); Benzodiazepine Screen Not Detected (NotDetected); Cocaine Metabolite Screen Not Detected (NotDetected); Medtox Control Line Valid? VALID (VALID); Medtox Reader # READER 1; Methadone Not Detected (NotDetected); Methamphetamine Not Detected (NotDetected); Opiate Screen Not Detected (NotDetected); Oxycodone Screen Not Detected (NotDetected); Phencyclidine (PCP) Not Detected (NotDetected); THC/Cannabinoid Screen Not Detected (NotDetected); Tricyclic Screen Not Detected (NotDetected)
[2018-03-18] MEDS ORDERED: levETIRAcetam In NaCl (Iso-Os) 1,500 MG in Premix Bag 1 BAG IVPB SCH (22:15)
[2018-03-18] MEDS ORDERED: Ampicillin 2 GM in Sodium Chloride 0.9% 100 ML IVPB SCH (23:15)
[2018-03-18 23:32] LABS: CSF Source CSF; Clarity Hazy (Clear); Tube # 1
[2018-03-18 23:34] LABS: CSF Source CSF; Clarity Clear (Clear); Tube # 4
[2018-03-18 23:38] LABS: RBC Count - Manual 290 /cumm (None Seen); WBC/NonHematics Count - Manual 1 /cumm (0-5)
[2018-03-18 23:42] LABS: RBC Count - Manual 2075 /cumm (None Seen); WBC/NonHematics Count - Manual 3 /cumm (0-5)
[2018-03-18] MEDS ORDERED: Vancomycin HCl 1.75 GM in Sodium Chloride 0.9% 500 ML IVPB SCH (23:45)
[2018-03-19] MEDS ORDERED: Prevnar 13-Val Conj/PF 0.5 ML SYRINGE IM ONE (05:45)
[2018-03-19] MEDS ORDERED: Sodium Chloride 0.9% 1,000 ML IV SCH (06:30)
[2018-03-19] MEDS ORDERED: levETIRAcetam 500 MG TAB PO SCH (09:00)
--- NOTE | 2018-03-19 09:30 | HP ---
PRIMARY CARE PHYSICIAN: Dr. Zach Chamberlain. CHIEF COMPLAINT: Seizure. HISTORY OF PRESENT ILLNESS: Mr. Denton is a 67-year-old gentleman, who has some dementia as well as a previous history of seizure disorder. He is currently a bit confused and unable to give me any history. He is awake and alert. Appears to be in absolutely no distress and does not know why he is in the hospital. According to the ER records, he apparently was picked up at a [facility] facility by the family to run some errands and apparently, he started seizing while in the car. They took him apparently to the [facility], where he stopped seizing. They apparently left him there. Not sure if they sought any medical attention to run some more errands and then he had another seizure episode. They said there was no reported fall. There was no fever and he has apparently had multiple seizures in the last few days. Otherwise, there is no other history. I am unsure whether or not he has been taking his medications and there is no other history available. It appears as if he was in the hospital recently with a seizure disorder and has had multiple admissions for the same. At that time, he was discharged on Keppra 1500 mg twice a day, which he does not appear that he is currently on according to the ER records. We will need to discuss with family once it is a little bit later and they become available to discuss. Currently, the patient has no complaints. No headaches. No dizziness. No chest pain. No shortness of breath. No abdominal pain. No nausea. No vomiting, etc. REVIEW OF SYSTEMS: All systems are reviewed and are negative except for that mentioned in the history of present illness. PAST MEDICAL HISTORY: Significant for seizure disorder with multiple hospitalizations, history of HIV, hypertension, diabetes mellitus, history of polysubstance abuse, and anxiety and depression. PAST SURGICAL HISTORY: No known surgeries. ALLERGIES: NO KNOWN DRUG ALLERGIES. SOCIAL HISTORY: He is single. Has 4 children. He is a nonsmoker and nondrinker. CODE STATUS: Full code. FAMILY HISTORY: No history of any heritable diseases. MEDICATIONS: From the ER records include; 1. Ziprasidone 20 mg twice a day. 2. Phenytoin 300 mg daily. 3. Sertraline 50 mg daily. 4. Intelence 200 mg twice a day. PHYSICAL EXAMINATION: GENERAL: He is awake and alert. He appears to be in no acute distress. He is well developed and well nourished. He is confused. VITAL SIGNS: Blood pressure was 131/69, heart rate 79, respiratory rate of 20, and temperature was 99.3. HEENT: Pupils are equal, round, and reactive. Extraocular muscles are intact. Sclerae are anicteric. Throat; there is no erythema, no exudate. NECK: No adenopathy. No bruits. LUNGS: Clear to auscultation. There is no wheezing, no rales, no rhonchi. CARDIOVASCULAR: He has a normal S1 and S2. I did not appreciate an S3 or S4. No murmurs, clicks, or rubs. ABDOMEN: Obese. It is soft. It is nontender and nondistended. Positive for bowel sounds. No rebound. No guarding. EXTREMITIES: There is no clubbing or cyanosis. No edema. NEUROLOGICAL: The exam is grossly nonfocal. His muscle strength is 5/5 in both his upper and lower extremities. SKIN AND INTEGUMENT: There are no skin changes. No rash. LABORATORY RESULTS: The patient had a CT scan that I reviewed, which had no acute intracranial abnormalities. On his CBC, the white blood cell count 6.6, hemoglobin 13.3, hematocrit is 38.6, and platelet count was 173. Sodium 139, potassium 3.8, chloride is 105, CO2 is 22, BUN of 15, creatinine 1.13, and glucose is 213. Urinalysis was negative. He had an LP. The CSF from the 4th tube was clear, colorless, only 1 WBCs, RBCs were 290. Urine drug screen was negative. ASSESSMENT AND PLAN: This is a pleasant 67-year-old gentleman, who has a history of seizure disorder with multiple admissions for the same. It is unclear the details around this particular episode and at this point, he appears completely normal. Apparently, there was an LP done, so there must have been some concern for meningitis. However, the CSF does not appear to have evidence consistent with meningitis. It appears as if it may have been a traumatic tap with some RBCs there. No mention of any xanthochromia, and the patient appears to be clinically at his baseline. We will place him in observation and continue him on his home medications, which had been prescribed on his last discharge and try to get more clarifying information from the family. Job ID: [id number]
[2018-03-19] MEDS ORDERED: Lorazepam 2 MG/ML VIAL SLOW IVP PRN (10:35)
[2018-03-19] MEDS ORDERED: Labetalol HCl 100 MG/20 ML VIAL SLOW IVP PRN (10:35)
[2018-03-19] MEDS ORDERED: Acetaminophen 325 MG TAB PO PRN (10:35)
[2018-03-19] MEDS ORDERED: Enoxaparin Sodium 40 MG/0.4 ML SYRINGE SC SCH ×2 (10:35→12:00)
[2018-03-19] MEDS ORDERED: hydrALAZINE 20 MG/ML VIAL SLOW IVP PRN (10:35)
[2018-03-19] MEDS ORDERED: Acetaminophen 325 MG TAB ONE ×2 (13:01)
[2018-03-19] MEDS ORDERED: Enoxaparin Sodium 40 MG/0.4 ML SYRINGE ONE (13:05)
[2018-03-19 17:30] VITALS: BMI 26.2
--- NOTE | 2018-03-20 03:16 | CON ---
DATE OF CONSULTATION: 03/19/2018 TYPE OF CONSULTATION: Neurology. REASON FOR REFERRAL: Seizures. HISTORY OF PRESENT ILLNESS: This is a 67-year-old male, who has a history of seizures. He cannot tell anything about his problem and he does not really know why he is here. He reportedly was brought in because he had some seizures in his care facility and then some seizures in the car when he was going on an errand with his family. According to his old chart, he is supposed to be on Keppra. However, the patient states he does not take any medicines that he knows of. Also, according to the chart, he is allergic to fosphenytoin. There is also a note on his chart that he has been on Dilantin; however, his level on admission was very subtherapeutic. His chronic problems include the seizures, the dementia, history of HIV positivity, hypertension, diabetes, and substance abuse. ALLERGIES: HIS CHART MENTIONS THAT HE IS ALLERGIC TO FOSPHENYTOIN. SOCIAL HISTORY: According to his chart, he is single and has 4 children and does not smoke or drink. FAMILY HISTORY: Non-obtainable due to the patient's mental status. REVIEW OF SYSTEMS: Non-obtainable due to his mental status. However, he states that he is fine and does not have any problems, except he is hungry and would like some food. PHYSICAL EXAMINATION: GENERAL: He is awake and alert. VITAL SIGNS: Show a temperature of 98.4, pulse 74, blood pressure 130/71, respiratory rate 18, and O2 saturation is 98% on room air. HEENT: Negative. LUNGS: Clear. HEART: Regular. ABDOMEN: Not distended. EXTREMITIES: No swelling. JOINTS: No swelling. SKIN: No rashes. NEUROLOGICAL: He is awake and alert. He states that the year is 2011. He states that we are in the hospital in [place], which is close, we are actually in [place]. He is not sure of what year it is, he stated that it was 2011 and he is not sure what month this is either. Cranial nerves 2 through 12 tested normally. Motor, 5/5 strength in the arms and legs. Normal tone and bulk. No atrophy or fasciculations. DTRs 2+. Toes downgoing. Sensation is normal to light touch throughout. Coordination, [id number] is normal. DIAGNOSTIC DATA: Some test results show that there was a CT of the brain done on 03/18/2018, it showed some atrophy, some mild chronic small-vessel disease, nothing acute. His old chart reveals that there was an MRI of the brain done on 08/07/2015 and at that time, the MRI of the brain was normal. He has had an echocardiogram on 02/03/2017, it showed some diastolic dysfunction, but normal valves. Some other labs showed that there was a lumbar puncture done on 03/18/2018; tube #1 showed 3 wbc's and 2075 rbc's, tube #4 showed 1 wbc and 290 rbc's. This is just consistent with traumatic tap. No sign of a bleed or infection. His CSF glucose was 89 and CSF protein was 40. A Dilantin level was done on March 18, 2018, which was less than 1.8, basically nondetectable and the urine drug screen was negative. Other labs showed a sodium of 139, BUN 15, creatinine 1.13, glucose 213, calcium 9.4. Prolactin level was normal at 7.34. IMPRESSION: Seizure disorder. This could be related to his previous diagnosis of HIV. Also note that we have just got results back on his spinal fluid for cryptococcal antigen, and it was negative. There was also a culture done on the spinal fluid. No organisms were seen on the Gram-stain. PLAN: Since his chart reveals an allergy to fosphenytoin, I am reluctant to give him any Dilantin or fosphenytoin. We will start him on Keppra 750 mg IV q.12 hours. We will just start off with this relatively low dose as we are not certain what dose he has been on at home, if any, and I did not want to start him on a really high dose all at once, so he is on 750 mg twice a day now. Also, we will order an EEG. He should not drive and he should not stay by himself due to his dementia and the seizures. Job ID: [id number]
[2018-03-20 06:15] LABS: Anion Gap 11 mmol/L (10-20); BUN (Urea Nitrogen) 13 mg/dL (8.4-25.7); Calc. Creatinine Clearance 83 mL/min (70-130); Calcium 8.2 mg/dL (7.8-10.44); Carbon Dioxide 22 mmol/L (23-31); Chloride 111 mmol/L (98-107); Estimated GFR-MDRD Greater than 90; Glucose 99 mg/dL (80-115); Potassium 3.7 mmol/L (3.5-5.1); Sodium 140 mmol/L (136-145)
[2018-03-20 06:56] LABS: Hemoglobin 11.3 g/dL (14.0-18.0); Mean Corpuscular HGB CONC 33.2 g/dL (32.0-36.0); Mean Corpuscular Hemoglobin 29.1 pg (27.0-31.0); Mean Corpuscular Volume 87.7 fL (78.0-98.0); Mean Platelet Volume 7.2 fL (7.4-10.4); Platelet Count 179 thou/uL (130-400); RBC Distribution Width 11.3 % (11.5-14.5); Red Blood Cell (RBC) Count 3.88 mill/uL (4.70-6.10); White Blood Cell (WBC) Count 6.4 thou/uL (4.8-10.8)
[2018-03-20] MEDS: levETIRAcetam 500 MG TAB PO SCH ×2 (08:40→20:06)
[2018-03-20] MEDS: Enoxaparin Sodium 40 MG/0.4 ML SYRINGE SC SCH (08:40)
[2018-03-20] MEDS ORDERED: Non-Formulary Item 1 EACH (Dolutegravir Sodium [Tivicay] 50 MG) PO SCH (09:00)
[2018-03-20] MEDS ORDERED: DARUNAVIR PO SCH (09:00)
[2018-03-20] MEDS ORDERED: LEVETIRACETAM PO SCH (09:00)
[2018-03-20] MEDS ORDERED: COBICISTAT PO SCH (09:00)
[2018-03-20] MEDS ORDERED: [UNRECOGNIZED DRUG - OTHER] PO SCH (09:00)
[2018-03-20 09:23] LABS: Eosinophils 1 % (0-10); Lymphocytes 48 % (21-51); MDiff Complete? YES; Monocytes 2 % (0-10); Neutrophil 49 % (42-75); Polychromasia SLIGHT = 2-3 cells (100X) (0-2/hpf)
[2018-03-20] MEDS ORDERED: Dextrose 50% Abboject 50 ML SYRINGE SLOW IVP PRN (14:10)
[2018-03-20] MEDS ORDERED: HumaLOG 300 UNITS/3 ML VIAL SC PRN ×2 (14:10)
[2018-03-20] MEDS ORDERED: Dextrose 5% in Water 1,000 ML IV PRN (14:10)
--- NOTE | 2018-03-20 14:13 | PDOC.PN ---
- Subjective Encounter Start Date: 03/20/18 Encounter Start Time: 11:00 Mr. Denton was seen today in follow-up of seizure disorder. He does not have any complaints this morning. He appears to be at his baseline. No report of any seizures. - Objective Resuscitation Status - Order Detail: 03/19/18 08:36 Resuscitation Status Routine Resuscitation Status: FULL: Full Resuscitation MAR Reviewed: Yes Vital Signs & Weight: Vital Signs (12 hours) Temp Pulse Resp BP Pulse Ox 03/20/18 11:46 97.9 F 66 16 119/72 97 03/20/18 07:36 98.0 F 67 16 125/74 96 03/20/18 04:00 98.1 F 70 20 141/69 H 98 Weight Weight 161 lb 14.4 oz I&O: 03/19/18 03/20/18 03/21/18 06:59 06:59 06:59 Intake Total 2894 Output Total 150 620 Balance -150 2274 Result Diagrams: 03/20/18 05:32 03/20/18 05:32 Additional Labs: Accuchecks 03/19/18 18:06 POC Glucose 99 Phys Exam - Physical Examination HEENT: PERRLA Respiratory: no wheezing, no rales, no rhonchi, clear to auscultation bilateral Cardiovascular: RRR, no significant murmur, no rub Gastrointestinal: soft, non-tender, no distention, positive bowel sounds Musculoskeletal: no edema Neurological: non-focal, moves all 4 limbs Dx/Plan (1) Seizure disorder Code(s): G40.909 - EPILEPSY, UNSP, NOT INTRACTABLE, WITHOUT STATUS EPILEPTICUS Status: Chronic Comment: (2) HIV (human immunodeficiency virus infection) Status: Chronic Comment: (3) HTN (hypertension) Code(s): I10 - ESSENTIAL (PRIMARY) HYPERTENSION Status: Chronic Qualifiers: Comment: (4) Diabetes mellitus type 2 in nonobese Code(s): E11.9 - TYPE 2 DIABETES MELLITUS WITHOUT COMPLICATIONS Status: Chronic - Plan * Seizure- reported to have had 2 seizures prior to admission * EEG is pending * Culture from CSF is negative so far * HTN - blood pressure is stable * DM- will add SSI * Disposition per Neurology
[2018-03-20] MEDS ORDERED: Donepezil HCl 5 MG TAB PO SCH (21:00)
[2018-03-21 07:49] VITALS: TEMP 98.7
[2018-03-21] MEDS: levETIRAcetam 500 MG TAB PO SCH (09:11)
[2018-03-21] MEDS: Enoxaparin Sodium 40 MG/0.4 ML SYRINGE SC SCH (09:11)
[2018-03-21 12:01] VITALS: BP 138/60
[2018-03-21 13:16] LABS: West Nile Virus IgG Ab - CSF Negative (Negative); West Nile Virus IgM Ab - CSF Negative (Negative)
--- NOTE | 2018-03-21 13:23 | PDOC.PN ---
- Subjective Encounter Start Date: 03/21/18 Encounter Start Time: 09:45 Subjective: awake, responding well to verbal stimuli -: no further seizures during his stay here - Objective Resuscitation Status - Order Detail: 03/19/18 08:36 Resuscitation Status Routine Resuscitation Status: FULL: Full Resuscitation MAR Reviewed: Yes Vital Signs & Weight: Vital Signs (12 hours) Temp Pulse Resp BP Pulse Ox 03/21/18 12:00 98.7 F 72 16 138/60 98 03/21/18 07:49 98.7 F 64 16 144/82 H 98 03/21/18 04:00 99.0 F 70 19 127/77 98 Weight Weight 161 lb 14.4 oz I&O: 03/20/18 03/21/18 03/22/18 06:59 06:59 06:59 Intake Total 2894 1360 480 Output Total 620 Balance 2274 1360 480 Result Diagrams: 03/20/18 05:32 03/20/18 05:32 Additional Labs: Accuchecks 03/21/18 03/21/18 03/20/18 10:45 06:12 20:01 POC Glucose 125 H 115 H 128 H 03/20/18 17:04 POC Glucose 132 H Phys Exam - Physical Examination HEENT: PERRLA, moist MMs Neck: no JVD, supple Respiratory: no wheezing, no rales Cardiovascular: RRR, no significant murmur Gastrointestinal: soft, non-tender, positive bowel sounds Musculoskeletal: no edema, pulses present Neurological: non-focal, moves all 4 limbs Dx/Plan (1) Seizure disorder Code(s): G40.909 - EPILEPSY, UNSP, NOT INTRACTABLE, WITHOUT STATUS EPILEPTICUS Status: Chronic Comment: had breakthrough seizures, ?noncompliance (2) Diabetes mellitus type 2 in nonobese Code(s): E11.9 - TYPE 2 DIABETES MELLITUS WITHOUT COMPLICATIONS Status: Chronic (3) HIV (human immunodeficiency virus infection) Status: Chronic Comment: (4) HTN (hypertension) Code(s): I10 - ESSENTIAL (PRIMARY) HYPERTENSION Status: Chronic Qualifiers: Hypertension type: essential hypertension Comment: - Plan is on keppra 1500mg bid -: csf studies show no evidence of infection -: dc pt to snf (accell) * . Review of Systems - Medications/Allergies Allergies/Adverse Reactions: Allergies Allergy/AdvReac Type Severity Reaction Status Date / Time fosphenytoin Allergy Verified 11/25/17 12:26 Medications: Current Medications Acetaminophen (Tylenol) 650 mg PO Q4H PRN PRN Reason: Headache/Fever/Mild Pain (1-3) Last Admin: 03/19/18 13:03 Dose: 650 mg Dextrose/Water (Dextrose 50%) 25 gm SLOW IVP PRN PRN PRN Reason: Hypoglycemia Donepezil HCl (Aricept) 5 mg PO HS [facility] Last Admin: 03/20/18 20:06 Dose: 5 mg Enoxaparin Sodium (Lovenox) 40 mg SC 0900 [facility] Last Admin: 03/21/18 09:11 Dose: 40 mg Glucagon (Glucagon) 1 mg IM PRN PRN PRN Reason: Hypoglycemia Hydralazine HCl (Apresoline) 10 mg SLOW IVP Q4H PRN PRN Reason: SBP > 180 and HR < 70 Dextrose/Water (D5w) 1,000 mls @ 0 mls/hr IV .Q0M PRN PRN Reason: Hypoglycemia Insulin Human Lispro (Humalog) 0 units SC .MODERATE SLIDING SC PRN PRN Reason: Moderate Correctional Scale Insulin Human Lispro (Humalog) 0 units SC .BEDTIME SLIDING SC PRN PRN Reason: Bedtime Correctional Scale Labetalol HCl (Normodyne) 20 mg SLOW IVP Q4H PRN PRN Reason: SBP > 180 and HR >/= 70 Levetiracetam (Keppra) 1,500 mg PO BID [facility] Last Admin: 03/21/18 09:11 Dose: 1,500 mg Lorazepam (Ativan) 2 mg SLOW IVP Q15MIN PRN PRN Reason: Seizures [Prezcobix 800 Mg- 150 Mg Tablet] 1 Each 0 each PO DAILY DEBBIE [Tivicay] 50 Mg 0 each PO BID [facility] Sertraline HCl (Zoloft) 100 mg PO DAILY [facility] Last Admin: 03/21/18 09:11 Dose: 100 mg Sodium Chloride (Flush - Normal Saline) 10 ml IVF Q12HR [facility] Last Admin: 03/21/18 09:15 Dose: Not Given Sodium Chloride (Flush - Normal Saline) 10 ml IVF PRN PRN PRN Reason: Saline Flush
--- NOTE | 2018-03-21 16:41 | DIS ---
DATE OF ADMISSION: 03/18/2018 DATE OF DISCHARGE: 03/21/2018 DISCHARGE DISPOSITION: [facility]. PRIMARY DISCHARGE DIAGNOSIS: Breakthrough seizures with history of seizure disorder, noncompliant with medication. SECONDARY DISCHARGE DIAGNOSES: HIV status, diabetes mellitus type 2, hypertension, cognitive dysfunction likely due to HIV. PROCEDURES DONE DURING HOSPITALIZATION: CT brain done showed no acute hemorrhage or infarct. H and H 11 and 34, white count of 6, platelet count 179 with 65% neutrophils. Albumin 4.2, prolactin was 7.34. CSF tube #4 was colorless. RBCs were 290, WBC count was 1. VDRL on the CSF was nonreactive. CSF West Nile IgG and IgM were negative. Phenytoin level was less than 1.8. CSF for cryptococcal antigen was negative. CSF fluid cultures showed no growth in 3 days. DISCHARGE MEDICATION: The patient to continue Tivicay 50 mg twice daily, Prezcobix 800/150 mg daily, donepezil 5 mg p.o. at bedtime, Keppra 1500 mg p.o. twice daily, sertraline 100 mg p.o. daily. ALLERGIES: FOSPHENYTOIN. INPATIENT CONSULT: Dr. Petra Bauman, for Neurology. BRIEF COURSE DURING HOSPITALIZATION: The patient initially was admitted for seizures with history of seizure disorder. He was sent from [facility]. The patient was initially given fosphenytoin, although he was allergic for it. The patient was re-loaded on Keppra. He has not had any further seizures. His CSF workup was done in view of his HIV positive/immunocompromise status. All the tests done so far shows no evidence of intracranial infection. At the time of discharge, he is hemodynamically and neurologically stable. The patient was evaluated by Dr. Petra Bauman for Neurology. He has been placed on Keppra 1500 mg p.o. twice daily and has been counseled to continue the same. Please note, the patient has underlying dementia/cognitive dysfunction. The patient's discharge medications were reconciled. Please see a [id number] documentation for the day of discharge on [facility]. Job ID: [id number]
--- NOTE | 2018-03-24 13:34 | EEG ---
Referring Physician: Neyda DRISCOLL EEG # [id number] TEST TYPE: ROUTINE PORTABLE INPATIENT REPORT: AN EEG USING THE INTERNATIONAL TEN-TWENTY SYSTEM OF ELECTRODE PLACEMENT WAS PERFORMED. The waking background is a 8 hertz alpha frequency. The patient remained awake throughout the study. Photic stimulation was unremarkable. No epileptiform features were seen. IMPRESSION: THIS IS A NORMAL AWAKE EEG. [employer] Teacher: QUE Assistive Technology Specialist: [email or web address] BOLANOS
--- NOTE | 2018-03-25 18:47 | EKG ---
Test Reason : SEIZURE Blood Pressure : / mmHG Vent. Rate : 067 BPM Atrial Rate : 067 BPM P-R Int : 210 ms QRS Dur : 094 ms QT Int : 430 ms P-R-T Axes : 075 074 062 degrees QTc Int : 454 ms Sinus rhythm with 1st degree A-V block Nonspecific T wave abnormality Abnormal ECG Confirmed by FERNANDA CHAPPELL DO ([id number]), science editor LINN VALLEJO ([id number]) on 03/25/2018 6:46:58 PM Referred By: MISTI Confirmed By:FERNANDA CHAPPELL DO
== END 2018-03-21 13:38 ==
LOC: ERS 13:50 → ERHOLD 23:46 → 2SE 03-19 16:10
PROVIDERS: ADMIT Internal Medicine; ATTEND Internal Medicine
DX: G40.909 Epilepsy, unspecified, not intractable, without status epilepticus (principal); F03.90 Unspecified dementia, unspecified severity, without behavioral disturbance, psychotic disturbance, mood disturbance, and anxiety; B20 Human immunodeficiency virus [HIV] disease; I10 Essential (primary) hypertension; E11.9 Type 2 diabetes mellitus without complications; F41.9 Anxiety disorder, unspecified; F32.9 Major depressive disorder, single episode, unspecified; Z88.8 Allergy status to other drugs, medicaments and biological substances; Z91.14 Patient's other noncompliance with medication regimen; Z79.899 Other long term (current) drug therapy
CPT/HCPCS: 62270; 70450; 80048; 80053; 80185; 80306; 81003; 82945; 82962 ×3; 84146; 84157; 85025 ×2; 86592; 86788; 86789; 87070; 87205; 87899; 89051; 93005; 95816; 95819; 96365; 96366; 96367; 96372; 96376; 97139; 99285; G0378 ×6; J1953 ×2; 36415; 36416; J0290; J1650; J3370; J7050; Q2009